=== PATIENT | male | born 1950 | race Caucasian/White ===

== ENCOUNTER 2020-06-22 01:26 | Inpatient (IN) | payer MEDICARE, SELFPAY ==
[2020-06-22] VITALS (9 sets, daily range): BP systolic 107–154; BP diastolic 54–84; PULSE 77–108; RESP 16–20; TEMP 36.1–37.8; O2SAT 95–100; BMI 18.6
--- NOTE | ~2020-06-22 | CT_ITS ---
EXAMINATION: CT brain wo con DATE: 06/24/2020 13:09 INDICATION: Head injury. TECHNIQUE: Computed tomography (CT) of the head was performed without intravenous contrast. The mA wa s adjusted according to patient size. Iterative reconstruction technique was employed. The dose-lengt h product was 681.00 mGy-cm. COMPARISON: Head CT 03/12/2012 FINDINGS: There is a small old infarct in left cerebellum. There is an old lacunar infarct in right c audate nucleus. There are scattered areas of low attenuation in the cerebral white matter. There is n o intracranial hemorrhage, acute infarction, or abnormal intracranial mass lesion. The ventricles are normal in size. There is mucosal thickening in the paranasal sinuses. The orbits are normal. The mas toid air cells are normal. IMPRESSION: 1. 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 2. Mild nonspecific cerebral white matter disease, which likely represents chronic small vessel ische shahana disease. Reviewed, dictated and finalized at location A. IMPRESSION: 1. 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 2. 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
--- NOTE | ~2020-06-22 | US_ITS ---
EXAMINATION: US arterial duplex LE EXAM DATE: 06/23/2020 12:24 INDICATION: Severe leg pain. Hypertension. TECHNIQUE: Segmental pressures and plethysmographic and Doppler waveforms of the brachial and lower e xtremity arteries were obtained. There is no prior study for comparison. FINDINGS: Right and left brachial artery pressures of 149 mm Hg and 142 mm Hg, respectively, are concordant (no rmal difference <= 30 mmHg). The right and left thigh-brachial pressure indices are could not obtain , 2.0, respectively (normal > 1.2). RIGHT LEG: The ankle-brachial index (J CARLOS) is 1.02 (normal >= 0.9-1). The lower extremity ratios, segmental pressure gradients as follows; Proximal superficial femoral artery:- Could not obtain ( mmHg). Distal superficial femoral artery: ----- 1.09 (163 mmHg). Popliteal: 0.87 (130 mmHg). Dorsalis pedis: 1.02 (152 mmHg). Posterior tibial: 0.83 (124 mmHg). (Normal gradients <= 20-30 mmHg between adjacent levels on the same leg or the same levels on the two legs). Arterial waveforms are biphasic proximally, monophasic belo w the knee. LEFT LEG: The ankle-brachial index (J CARLOS) is 0.72 (normal >= 0.9-1). The lower extremity ratios, segmental pressure gradients as follows; Proximal superficial femoral artery:- 2.03 (302 mmHg). Distal superficial femoral artery: ----- 1.05 (156 mmHg). Popliteal: 1.05 (156 mmHg). Dorsalis pedis: 0.72 (107 mmHg). Posterior tibial: 0.66 (99 mmHg). (Normal gradients <= 20-30 mmHg between adjacent levels on the same leg or the same levels on the two legs). Arterial waveforms are monophasic. IMPRESSION: 1. Right ankle-brachial index 1.02, normal. 2. Left ankle-brachial index 0.72, mildly decreased. 3. Monophasic wave forms entire left leg and right leg distally. Reviewed, dictated and finalized at location A.
--- NOTE | 2020-06-22 02:27 | ED.SKABFB ---
HPI - Skin/Abscess/Foreign Bdy General Chief complaint: Skin/Abscess/Foreign Body Stated complaint: fall Source: patient Mode of arrival: ambulatory Limitations: no limitations History of Present Illness HPI narrative: Pt is a 70 yo male who presents to ED with complaint of leg wound. He states wound has only been present about 60 hours (wound appears to be older than that). He relatea a story of getting the injury, then cleaning it off, then havinf a sock stick to the wound. He relates several days of difficulty getting sock unstuck from wound. He presents today due to pain and fever. He has poor health, poor circulation and poor hygine. He often has problems with the skin weeping. Right sock is discolored and has dried drainage on it as well. complaint: lesion Onset (ago): day(s) Tetanus up to date: yes (pt tells us td was 5 yrs ago) Location: LLE Severity: severe Quality: sharp (when ever it is touched) Pain Consistency: constant Relieving factors: none Exacerbating factors: none Context: none Associated symptoms: fever and chills Treatments prior to arrival: bandages Related Data Home Medications Medication Instructions Recorded Confirmed atenolol 25 mg PO DAILY 06/22/20 06/22/20 pravastatin 20 mg PO DAILY 06/22/20 06/22/20 tamsulosin 0.4 mg PO DAILY 06/22/20 06/22/20 Allergies Allergy/AdvReac Type Severity Reaction Status Date / Time tetracycline Allergy Unknown Verified 06/22/20 04:30 Review of Systems Constitutional: Constitutional: Reports chills, Reports fatigue and Reports fever(s) Eyes: Eyes: Reports no additional eye complaints ENT: Reports system reviewed and no additional complaints, except as documented Cardiovascular: Cardiovascular: Reports no additional cardiovascular complaints Respiratory: Respiratory: Reports no additional respiratory complaints Gastrointestinal: Gastrointestinal: Reports no additional gastrointestinal complaints Integumentary/Breasts: Comments: bruises everywhere in many different stages of healing, pt states he has spinal stenosis and falls a lot Psychiatric: Psychiatric: Reports no additional psychiatric complaints Endocrine: Endocrine: Reports no additional endocrine complaints Hematologic/Lymphatic: Hematologic/Lymphatic: Reports easy bruising Allergic/Immunologic: Allergic/Immunologic: Reports no additional allergic/immunologic complaints PMFSH Past Medical History Medical History Spinal stenosis Social History Social History (Updated 06/22/20 @ 02:36 by Genoveva Avalos MD) Years smoked: 50 Smoking status: Current every day smoker Tobacco type: cigarettes Smokeless tobacco user: other Second hand tobacco smoke exposure: Yes Alcohol intake: never Substance use: current Substance use type: marijuana and opiates Last use: 06/21/2020 Gender identity (if verbalized by the patient): Male Spiritual care concerns: No Exam Const: General: no acute distress, alert and ill appearing (chronically ill appearance, not acute) Nutritional Appearance: thin Orientation/consciousness: patient oriented x3 Eyes: Conjunctivae: conjunctivae normal Pupils: Equal, round and reactive pupils present Neck: Neck: normal visual inspection Chest: Chest palpation & inspection: normal inspection of the chest Resp: Effort & Inspection: normal respiratory effort Auscultation: clear to auscultation bilaterally Cardio: Rate: regular rate Rhythm: regular rhythm GI: Auscultation: normal bowel sounds Back/Spine/Pelvis: Back: no CVA tenderness Skin: Wounds: wounds noted (left aleman- some drainage, and discoloration of skin flap ) Other: wound was a flap, skin was not spread back out, and is now dark colored with surrounding erythema. Neuro: General: patient oriented x3, moves all extremities and no focal motor deficits Psych: Appearance: grossly normal Mental Status: mental s
[2020-06-22] MEDS: SODIUM CHLORIDE 0.9% IV 1,000 ML 999 ML IV CONT (03:05)
[2020-06-22 03:08] LABS: Basophils Absolute Auto 0.04 K/mm3 (0.00-0.10); Basophils Percent Auto 0.5 % (0.0-1.0); Eosinophils Absolute Auto 0.46 K/mm3 (0.02-0.50); Eosinophils Percent Auto 5.7 % (1.0-6.0); Hematocrit 30.7 % (37.0-46.0); Hemoglobin 9.8 g/dL (12.4-15.3); Immature Granulocyte Absolute 0.02 K/mm3 (0.00-0.00); Immature Granulocyte Percent A 0.2 % (0.0-0.0); Lymphocytes Absolute Auto 1.37 K/mm3 (1.10-4.50); Lymphocytes Percent Auto 16.9 % (18.0-42.0); Mean Corpuscular HGB Conc 31.9 g/dL (32.0-36.0); Mean Corpuscular Hemoglobin 31.4 pg (27.0-31.0); Mean Corpuscular Volume 98.4 fL (78.0-102.0); Mean Platelet Volume 8.9 fl (8.7-11.0); Monocytes Absolute Auto 0.72 K/mm3 (0.10-0.90); Monocytes Percent Auto 8.9 % (2.0-11.0); Neutrophils Absolute Auto 5.5 K/mm3 (1.7-7.2); Neutrophils Percent Auto 67.8 % (50.0-70.0); Platelet Count Result 279 K/mm3 (150-420); Red Blood Count 3.12 M/mm3 (4.70-6.10); Red Cell Distribution Width 13.3 % (11.6-14.4); White Blood Count 8.1 K/mm3 (4.8-10.8)
[2020-06-22] MEDS: NEOMYCIN/POLYMYXIN/BACITRACIN OINTMENT PACKET 3 PACKET (03:17)
[2020-06-22 03:26] LABS: Alanine Aminotransferase 21 U/L (16-63); Albumin Level 3.2 g/dL (3.4-5.0); Alkaline Phosphatase 91 U/L (46-116); Anion Gap 4 mmol/L (8-16); Aspartate Amino Transferase 25 U/L (15-37); Bilirubin,Total 0.4 mg/dL (0.00-1.00); Blood Urea Nitrogen 12 mg/dL (7-18); CRP 6.3 mg/dL (0.0-0.9); Calcium 8.6 mg/dL (8.5-10.1); Carbon Dioxide 29 mmol/L (21-32); Chloride 101 mmol/L (98-108); Estimated CRCL calculation 67 ml/min; Estimated Glomerular Filt Rate > 60; Glucose 128 mg/dL (70-99); Osmolality Calculated 279 mOsm/kg (285-295); Potassium 4.1 mmol/L (3.5-5.1); Sodium 134 mmol/L (136-145); Total Protein 6.3 g/dL (6.4-8.2)
--- NOTE | 2020-06-22 03:34 | PC.NURSE ---
WOUND TO RIGHT ELBOW AND LEFT ARANDA CLEANSED WITH SURCLENSE, NEOSPORIN/ TELFA GAUZE WRAP APPLIED.
[2020-06-22 03:48] LABS: INR 1.1; Partial Thromboplastin Time 31.3 SEC (22.3-31.6); Prothrombin Time 11.3 Seconds (9.64-11.0)
--- NOTE | 2020-06-22 06:31 | PC.NURSE ---
SL in place. No IV fluids/ IVPB hanging when pt to floor.
--- NOTE | 2020-06-22 07:53 | PM.IMHP ---
H&P: HPI History of Present Illness Date/Time: 06/22/20 07:53 <TIMMY Christopher - Last Filed: 06/22/20 13:37> Chief complaint: WOUND INFECTION <TIMMY Christopher - Last Filed: 06/22/20 13:37> Narrative: Armando Arceo is a 70 year old male who presented to the ER for wound on his left lower extremity. Patient states the wound injury occurred 1-2 days ago but he cannot recall what happened at that time. He states he had a sock on his leg in the wound and sock stuck to one another. He also an abrasion to the right elbow and to the front right forehead. Patient does seem confused. He states his daughter who is a nurse helped him with the wound. When asked what kind of a nurse patient states well she is not a nurse but she does something and healthcare and the follow this with he really was not sure what she does for living. Patient admits that both lower extremities have been read and swollen but does not recall when all this started. Patient does say he has severe pain in the left lower extremity where the wound is and rates the pain a 10/10 when it is touched. Patient does not complain of pain to the right elbow were to the forehead. <TIMMY Christopher - Last Filed: 06/22/20 13:37> Review of Systems Review of Systems: All systems reviewed & are unremarkable except as noted in HPI and below <TIMMY Christopher - Last Filed: 06/22/20 13:37> [facility] Past Medical History Medical History: Medical History Spinal stenosis <TIMMY Christopher - Last Filed: 06/22/20 13:37> Social History Social History: Social History (Updated 06/22/20 @ 02:36 by Genoveva Avalos MD) Years smoked: 50 Smoking status: Current every day smoker Tobacco type: cigarettes Smokeless tobacco user: other Second hand tobacco smoke exposure: Yes Alcohol intake: never Substance use: current Substance use type: marijuana and opiates Last use: 06/21/2020 Gender identity (if verbalized by the patient): Male Spiritual care concerns: No <TIMMY Christopher - Last Filed: 06/22/20 13:37> Meds Home Medications and Allergies Home medications: Home Medications Medication Instructions Recorded Confirmed Type atenolol 25 mg PO DAILY 06/22/20 06/22/20 History pravastatin 20 mg PO DAILY 06/22/20 06/22/20 History tamsulosin 0.4 mg PO DAILY 06/22/20 06/22/20 History <TIMMY Christopher - Last Filed: 06/22/20 13:37> Allergies/Adverse reactions: Allergies Allergy/AdvReac Type Severity Reaction Status Date / Time tetracycline Allergy Unknown Verified 06/22/20 04:30 <TIMMY Christopher - Last Filed: 06/22/20 13:37> Vital Signs Vital Signs - 24 hr 06/22/20 01:30 06/22/20 04:05 06/22/20 05:00 Temperature 100.1 F H 99.6 F 97.8 F Pulse Rate 108 H 77 88 Respiratory Rate 20 20 16 Blood Pressure 154/84 H 107/63 127/76 Pulse Oximetry 100 97 99 06/22/20 05:51 Temperature 97.8 F Pulse Rate 88 Respiratory Rate 16 Blood Pressure 127/76 Pulse Oximetry 99 <TIMMY Christopher - Last Filed: 06/22/20 13:37> Exam Const: General: cooperative, comfortable and no acute distress <TIMMY Christopher - Last Filed: 06/22/20 13:37> Nutritional Appearance: average body habitus <TIMMY Christopher - Last Filed: 06/22/20 13:37> Orientation/consciousness: oriented to person, oriented to place and oriented to time ( Not to events) <TIMMY Christopher - Last Filed: 06/22/20 13:37> HENMT: Head: abrasion right frontal <TIMMY Christopher - Last Filed: 06/22/20 13:37> Eyes: General: appearance normal, both eyes and all related structures <TIMMY Christopher - Last Filed: 06/22/20 13:37> Visual García: normal visual garcía by confrontation <TIMMY Christopher - Last Filed: 06/22/20 13:37> Alignment and Position: alignment normal <TIMMY Christopher - Last Filed: 06/22
[2020-06-22] MEDS: MUPIROCIN 2% OINT 22 GM TUBE 1 APPLIC TOPICAL (10:51)
[2020-06-22] MEDS: PANTOPRAZOLE SODIUM IV 40 MG VIAL IV PUSH (10:52)
[2020-06-22 12:33] LABS: Hemoglobin A1C 5.5 % (<5.7)
[2020-06-22 12:39] LABS: BNP 20 pg/mL (0-100)
[2020-06-22] MEDS: TETANUS/DIPHTHERIA TOXOIDS ADSORB 0.5 ML VIAL (*BKC) IM (12:51)
[2020-06-22] MEDS: ACETAMINOPHEN 325 MG TABLET 650 MG PO (16:14)
[2020-06-22] MEDS: ENOXAPARIN 40 MG/0.4 ML SYRINGE SUB-Q (17:58)
--- NOTE | 2020-06-22 21:00 | PC.NURSE ---
in bed with legs elevated, dressing to leg dry and intact, no redness extending beyond marked border
--- NOTE | 2020-06-22 22:00 | PC.NURSE ---
Dressing remains dry and intact
--- NOTE | 2020-06-22 23:52 | PC.NURSE ---
Up to void, tailbone and LLE hurting pretty bad dressing d/i
--- NOTE | 2020-06-23 01:49 | PC.NURSE ---
Up to void, dressing to leg dry and in place
[2020-06-23] MEDS: ACETAMINOPHEN 325 MG TABLET 650 MG PO (03:53)
[2020-06-23 04:00] VITALS: BP 140/70; PULSE 90; RESP 18; TEMP 36.6; O2SAT 96
--- NOTE | 2020-06-23 04:13 | PC.NURSE ---
Dressing remains in place d/i
[2020-06-23 05:54] LABS: Basophils Absolute Auto 0.03 K/mm3 (0.00-0.10); Basophils Percent Auto 0.5 % (0.0-1.0); Eosinophils Absolute Auto 0.31 K/mm3 (0.02-0.50); Eosinophils Percent Auto 4.8 % (1.0-6.0); Hematocrit 29.3 % (37.0-46.0); Hemoglobin 9.6 g/dL (12.4-15.3); Immature Granulocyte Absolute 0.02 K/mm3 (0.00-0.00); Immature Granulocyte Percent A 0.3 % (0.0-0.0); Lymphocytes Absolute Auto 1.68 K/mm3 (1.10-4.50); Lymphocytes Percent Auto 26.2 % (18.0-42.0); Mean Corpuscular HGB Conc 32.8 g/dL (32.0-36.0); Mean Corpuscular Hemoglobin 31.4 pg (27.0-31.0); Mean Corpuscular Volume 95.8 fL (78.0-102.0); Mean Platelet Volume 9.2 fl (8.7-11.0); Monocytes Absolute Auto 0.63 K/mm3 (0.10-0.90); Monocytes Percent Auto 9.8 % (2.0-11.0); Neutrophils Absolute Auto 3.7 K/mm3 (1.7-7.2); Neutrophils Percent Auto 58.4 % (50.0-70.0); Platelet Count Result 251 K/mm3 (150-420); Red Blood Count 3.06 M/mm3 (4.70-6.10); Red Cell Distribution Width 13.2 % (11.6-14.4); White Blood Count 6.4 K/mm3 (4.8-10.8)
[2020-06-23 06:05] LABS: Anion Gap 8 mmol/L (8-16); Blood Urea Nitrogen 6 mg/dL (7-18); Calcium 8.5 mg/dL (8.5-10.1); Carbon Dioxide 27 mmol/L (21-32); Chloride 105 mmol/L (98-108); Estimated CRCL calculation 76 ml/min; Estimated Glomerular Filt Rate > 60; Glucose 86 mg/dL (70-99); Osmolality Calculated 286 mOsm/kg (285-295); Potassium 3.5 mmol/L (3.5-5.1); Sodium 140 mmol/L (136-145)
--- NOTE | 2020-06-23 07:55 | PM.IMPN ---
Progress Note: A&P Assessment and Plan (1) Posttraumatic wound infection: Code(s): T14.8XXA - Other injury of unspecified body region, initial encounter; L08.9 - Local infection of the skin and subcutaneous tissue, unspecified Status: Acute Assessment and Plan: 06/22/2020 patient was started on Levaquin and Zosyn in the ER. Bactroban was added as a topical. Rounding physician would like to stop Levaquin after tomorrow's dose and continue Zosyn. The erythematous area was marked with a pen and will be monitored. Wound culture was obtained in the ER results pending at this time. Will consider adding either Vancomycin or Clindamycin or Linezolid if wound culture shows MRSA. Given unknown cause for injury Tdap was ordered. 06/23/2020 Wound Culture Preliminary as reported by lab: GRAM STAIN: Few, epithelial cells, Moderate White blood cells seen, Many Gram positive cocci in clusters. Zosyn is continued and Levaquin discontinued, Bactroban ointment continued, consult for wound care placed, Tramadol 100 mg q.6 hours p.r.n. added, erythema around the wound appears to have gotten smaller in relation to the pen markings yesterday, continue to monitor lab work. (2) Cellulitis: Qualifiers: Laterality: left Site of cellulitis: extremity Site of cellulitis of extremity: lower extremity Qualified Code(s): L03.116 - Cellulitis of left lower limb Code(s): L03.90 - Cellulitis, unspecified Status: Acute Assessment and Plan: 06/22/2020 Current antibiotic regimen as noted above and will consider adding antibiotic if wound culture shows MRSA. Monitoring wound borders and lab work. Legs elevated due to 3+ pitting edema lower extremities. 06/23/2020 Zosyn and Bactroban continued, Levaquin discontinued, 2+ pitting edema lower extremities, erythema improved as noted above, continue to monitor (3) Abrasions of multiple sites: Code(s): T07.XXXA - Unspecified multiple injuries, initial encounter Status: Acute Assessment and Plan: 06/22/2020 Topical Bactroban, monitor wounds right elbow right forehead, Tdap ordered. 06/23/2020 continue as above, Tdap administered yesterday (4) Anemia: Code(s): D64.9 - Anemia, unspecified Status: Acute Assessment and Plan: 06/22/2020 H/H 9.8/30.7 today, will be monitoring labs. 06/23/2020 today H/H decreased to 9.6/29.3, anemia workup ordered Subjective Date/time seen: 06/23/20 07:55 Patient states he seems to be doing pretty good today. He does complain of 5-6 out of 10 lower left leg pain while being still. And a 10/10 pain with it being touched or moved. Patient says pain control could be a little better. Denies any chest pain shortness of breath. Admits that he does call for assistance when getting up to use the bedside commode. Patient was wanting to go home soon as possible however I did explain to him the need for the IV antibiotics and wound care. Review of Systems Review of Systems: All systems reviewed & are unremarkable except as noted in HPI and below Musculoskeletal: Comments: States his tailbone gets a little sore from sitting so often. He says he relieves this by turning himself often in bed. Exam Const: General: cooperative, no acute distress, alert and awake Nutritional Appearance: average body habitus Orientation/consciousness: oriented to person, oriented to place and oriented to time Resp: Effort & Inspection: normal respiratory effort Auscultation: clear to auscultation bilaterally, no crackles, no rales, no rhonchi and no wheezes Cardio: Jugular venous distension: no JVD Rate: regular rate Rhythm: regular rhythm Heart sounds: S1 normal heart sound present and S2 normal heart sound present GI: GI Palp: No abdominal tenderness Auscultation: Hypoactive bowel sounds present Back/Spine/Pelvis: Thoracic/Lumbar Spine: Thoracic/lumbar scoliosis Skin: Wounds: wounds noted avulsion left anterior lower leg without odor and
[2020-06-23 08:00] VITALS: BP 154/73; PULSE 66; RESP 18; TEMP 36.7; O2SAT 97
[2020-06-23 08:03] LABS: Reticulocyte Hemoglobin Conten 33.7 pg (28.0-35.0); Reticulocyte Percent 1.58 % (0.50-1.50); Reticulocytes Absolute 0.05 M/mm3 (0.02-0.1)
[2020-06-23] MEDS: PANTOPRAZOLE SODIUM IV 40 MG VIAL IV PUSH (08:17)
[2020-06-23 08:18] VITALS: PULSE 72
[2020-06-23] MEDS: TAMSULOSIN HCL 0.4 MG CAPSULE PO (08:18)
[2020-06-23] MEDS: PRAVASTATIN SODIUM 20 MG TABLET PO (08:18)
[2020-06-23] MEDS: atenoloL 25 MG TABLET PO (08:18)
[2020-06-23 08:39] LABS: Ferritin 194 ng/mL (26-388); Iron 35 ug/dL (65-175); Percent Iron Saturation 24 % (12-57); Vitamin B12 425 pg/mL (193-986)
[2020-06-23 08:40] LABS: Folic Acid > 20.0 ng/mL (8.6->20); Thyroid Stimulating Hormone Reflex 0.07 u/IU/mL (0.36-3.74)
[2020-06-23 08:41] LABS: Free T4 Free Thyroxine Reflex 1.67 ng/dL (0.76-1.46)
[2020-06-23] MEDS: traMADol HCL (*CRX) 50 MG TABLET 100 MG PO ×2 (09:35→20:20)
[2020-06-23] MEDS: MUPIROCIN 2% OINT 22 GM TUBE 1 APPLIC TOPICAL ×2 (10:30→20:53)
--- NOTE | 2020-06-23 11:25 | PC.NURSE ---
To x-ray per wc with technical service representative.
--- NOTE | 2020-06-23 12:02 | PC.NURSE ---
Message left with wound center at [facility] per order.
--- NOTE | 2020-06-23 12:04 | PC.NURSE ---
Pt status changed from Observation to Inpatient.
--- NOTE | 2020-06-23 12:15 | PC.NURSE ---
Pt returned to room from xray. to bed per self. sitting at edge of bed eating lunch. Call malin in reach, reminded to call with needs.
--- NOTE | 2020-06-23 12:50 | PC.NURSE ---
Nephew here to visit the patient.
--- NOTE | 2020-06-23 15:00 | PC.NURSE ---
Pt found laying back across the bed, sleeping, hard to arouse, awoken with a mild sternal rub and name calling. once awake states he's finally getting some sleep but seems very drowsy still. up in bed straight with assist of 2. Bed rails up x3. Call malin in reach. Reminded to call with needs.
[2020-06-23 16:00] VITALS: BP 105/59; PULSE 54; RESP 16; TEMP 36.4; O2SAT 98
[2020-06-23] MEDS: ENOXAPARIN 40 MG/0.4 ML SYRINGE SUB-Q (16:45)
[2020-06-23 20:00] VITALS: BP 134/71; PULSE 74; RESP 16; TEMP 36.4; O2SAT 98
[2020-06-23 23:57] VITALS: BP 94/43; PULSE 60; RESP 16; TEMP 36.2; O2SAT 97
[2020-06-24 04:00] VITALS: BP 132/60; PULSE 68; RESP 16; TEMP 36.6; O2SAT 97
[2020-06-24] MEDS: traMADol HCL (*CRX) 50 MG TABLET 100 MG PO (05:25)
[2020-06-24 05:41] LABS: Hemoglobin 10.4 g/dL (12.4-15.3); Mean Corpuscular HGB Conc 32.5 g/dL (32.0-36.0); Mean Corpuscular Hemoglobin 31.9 pg (27.0-31.0); Mean Corpuscular Volume 98.2 fL (78.0-102.0); Mean Platelet Volume 8.8 fl (8.7-11.0); Platelet Count Result 267 K/mm3 (150-420); Red Blood Count 3.26 M/mm3 (4.70-6.10); Red Cell Distribution Width 13.2 % (11.6-14.4); White Blood Count 6.7 K/mm3 (4.8-10.8)
[2020-06-24 05:54] LABS: Anion Gap 5 mmol/L (8-16); Blood Urea Nitrogen 7 mg/dL (7-18); Calcium 8.7 mg/dL (8.5-10.1); Carbon Dioxide 30 mmol/L (21-32); Chloride 103 mmol/L (98-108); Estimated CRCL calculation 70 ml/min; Estimated Glomerular Filt Rate > 60; Glucose 84 mg/dL (70-99); Osmolality Calculated 283 mOsm/kg (285-295); Potassium 3.9 mmol/L (3.5-5.1); Sodium 138 mmol/L (136-145)
--- NOTE | 2020-06-24 07:32 | PM.IMPN ---
Progress Note: A&P Assessment and Plan (1) Posttraumatic wound infection: Code(s): T14.8XXA - Other injury of unspecified body region, initial encounter; L08.9 - Local infection of the skin and subcutaneous tissue, unspecified Status: Acute Assessment and Plan: 06/22/2020 patient was started on Levaquin and Zosyn in the ER. Bactroban was added as a topical. Rounding physician would like to stop Levaquin after tomorrow's dose and continue Zosyn. The erythematous area was marked with a pen and will be monitored. Wound culture was obtained in the ER results pending at this time. Will consider adding either Vancomycin or Clindamycin or Linezolid if wound culture shows MRSA. Given unknown cause for injury Tdap was ordered. 06/23/2020 Wound Culture Preliminary as reported by lab: GRAM STAIN: Few, epithelial cells, Moderate White blood cells seen, Many Gram positive cocci in clusters. Zosyn is continued and Levaquin discontinued, Bactroban ointment continued, consult for wound care placed, Tramadol 100 mg q.6 hours p.r.n. added, erythema around the wound appears to have gotten smaller in relation to the pen markings yesterday, continue to monitor lab work. 06/24/2020 Wound Culture: Staphylococcus aureus with sensitivity to follow, dressing will now be wet to dry, will continue to monitor wounds, still use Bactroban on the forehead and the right arm (2) Cellulitis: Qualifiers: Laterality: left Site of cellulitis: extremity Site of cellulitis of extremity: lower extremity Qualified Code(s): L03.116 - Cellulitis of left lower limb Code(s): L03.90 - Cellulitis, unspecified Status: Acute Assessment and Plan: 06/22/2020 Current antibiotic regimen as noted above and will consider adding antibiotic if wound culture shows MRSA. Monitoring wound borders and lab work. Legs elevated due to 3+ pitting edema lower extremities. 06/23/2020 Zosyn and Bactroban continued, Levaquin discontinued, 2+ pitting edema lower extremities, erythema improved as noted above, continue to monitor 06/24/2020 continue with current regiment (3) Abrasions of multiple sites: Code(s): T07.XXXA - Unspecified multiple injuries, initial encounter Status: Acute Assessment and Plan: 06/22/2020 Topical Bactroban, monitor wounds right elbow right forehead, Tdap ordered. 06/23/2020 continue as above, Tdap administered yesterday 06/24/2020 continue as above (4) Anemia: Code(s): D64.9 - Anemia, unspecified Status: Acute Assessment and Plan: 06/22/2020 H/H 9.8/30.7 today, will be monitoring labs. 06/23/2020 today H/H decreased to 9.6/29.3, anemia workup ordered 06/24/2020 anemia stable 10.4/3 2, iron deficiency anemia, ferrous sulfate 324 mg daily added Subjective Date/time seen: 06/24/20 07:32 Patient basically says no change from yesterday. Left lower extremity still hurts when he stands up or when he moves it or if it is touched. Patient denies headache, chest pains, shortness of breath, or increased work of breathing. Patient states he really would like to go home. Review of Systems Constitutional: Constitutional: Reports no additional constitutional complaints Cardiovascular: Cardiovascular: Reports no additional cardiovascular complaints, Denies chest pain, Denies chest pain at rest and Denies chest pain with activity Respiratory: Respiratory: Reports no additional respiratory complaints, Denies cough, Denies pain on inspiration, Denies dyspnea and Denies dyspnea on exertion Gastrointestinal: Gastrointestinal: Reports no additional gastrointestinal complaints Musculoskeletal: Comments: pain lower left extremity Exam Const: General: cooperative, no acute distress and ill appearing chronically Nutritional Appearance: thin Orientation/consciousness: oriented to person and oriented to place Resp: Effort & Inspection: normal respiratory effort Auscultation: clear to auscultation bilaterally Cardio:
[2020-06-24 08:00] VITALS: BP 145/79; PULSE 75; RESP 12; TEMP 36.7; O2SAT 97
[2020-06-24] MEDS: PRAVASTATIN SODIUM 20 MG TABLET PO (08:35)
[2020-06-24] MEDS: MUPIROCIN 2% OINT 22 GM TUBE 1 APPLIC TOPICAL ×2 (08:35→21:34)
[2020-06-24] MEDS: atenoloL 25 MG TABLET PO (08:35)
[2020-06-24] MEDS: PANTOPRAZOLE SODIUM IV 40 MG VIAL IV PUSH (08:35)
[2020-06-24] MEDS: FERROUS SULFATE 324 MG TABLET PO (08:35)
[2020-06-24] MEDS: TAMSULOSIN HCL 0.4 MG CAPSULE PO (08:35)
[2020-06-24 12:00] VITALS: BP 125/68; PULSE 75; RESP 20; TEMP 36.6; O2SAT 94
[2020-06-24 12:10] LABS: Ethanol < 3 mg/dL (0-6)
[2020-06-24 15:29] LABS: Amphetamine Screen Urine Positive (Negative); Barbiturate Screen Urine Negative (Negative); Benzodiazepines Screen Urine Negative (Negative); Cannabinoid Screen Urine Negative (Negative); Cocaine Screen Urine Negative (Negative); Methadone Screen Urine Negative (Negative); Opiate Screen Urine Positive (Negative); Phencyclidine Screen Urine Negative (Negative)
[2020-06-24 16:00] VITALS: BP 136/72; PULSE 78; RESP 14; TEMP 36.1; O2SAT 95
--- NOTE | 2020-06-24 16:37 | PM.EVENT ---
Event Note Event Note Event Note: I have examined the patient and reviewed the charts. I discussed patient's care with Jeremiah Michaud APN and agree with his assessment and plan.
[2020-06-24] MEDS: ENOXAPARIN 40 MG/0.4 ML SYRINGE SUB-Q (16:43)
[2020-06-24 20:00] VITALS: BP 116/58; PULSE 70; RESP 18; TEMP 36.2; O2SAT 99
[2020-06-25] VITALS (7 sets, daily range): BP systolic 103–144; BP diastolic 45–68; PULSE 60–70; RESP 16–20; TEMP 36.4–36.9; O2SAT 97–100
[2020-06-25] MEDS: traMADol HCL (*CRX) 50 MG TABLET 100 MG PO ×3 (04:21→21:10)
--- NOTE | 2020-06-25 07:56 | PM.IMPN ---
Progress Note: A&P Assessment and Plan (1) Posttraumatic wound infection: Code(s): T14.8XXA - Other injury of unspecified body region, initial encounter; L08.9 - Local infection of the skin and subcutaneous tissue, unspecified Status: Acute Assessment and Plan: 06/22/2020 patient was started on Levaquin and Zosyn in the ER. Bactroban was added as a topical. Rounding physician would like to stop Levaquin after tomorrow's dose and continue Zosyn. The erythematous area was marked with a pen and will be monitored. Wound culture was obtained in the ER results pending at this time. Will consider adding either Vancomycin or Clindamycin or Linezolid if wound culture shows MRSA. Given unknown cause for injury Tdap was ordered. 06/23/2020 Wound Culture Preliminary as reported by lab: GRAM STAIN: Few, epithelial cells, Moderate White blood cells seen, Many Gram positive cocci in clusters. Zosyn is continued and Levaquin discontinued, Bactroban ointment continued, consult for wound care placed, Tramadol 100 mg q.6 hours p.r.n. added, erythema around the wound appears to have gotten smaller in relation to the pen markings yesterday, continue to monitor lab work. 06/24/2020 Wound Culture: Staphylococcus aureus with sensitivity to follow, dressing will now be wet to dry, will continue to monitor wounds, still use Bactroban on the forehead and the right arm 06/25/2020 wound culture shows MRSA, 1 g vancomycin loading dose given, pharmacy to dose, vancomycin trough order placed for June 27 prior to 3rd dose, at this time patient will will be on a 24 hour dosing schedule (2) Cellulitis: Qualifiers: Laterality: left Site of cellulitis: extremity Site of cellulitis of extremity: lower extremity Qualified Code(s): L03.116 - Cellulitis of left lower limb Code(s): L03.90 - Cellulitis, unspecified Status: Acute Assessment and Plan: 06/22/2020 Current antibiotic regimen as noted above and will consider adding antibiotic if wound culture shows MRSA. Monitoring wound borders and lab work. Legs elevated due to 3+ pitting edema lower extremities. 06/23/2020 Zosyn and Bactroban continued, Levaquin discontinued, 2+ pitting edema lower extremities, erythema improved as noted above, continue to monitor 06/24/2020 continue with current regiment 06/25/2020 vancomycin started as noted above (3) Abrasions of multiple sites: Code(s): T07.XXXA - Unspecified multiple injuries, initial encounter Status: Acute Assessment and Plan: 06/22/2020 Topical Bactroban, monitor wounds right elbow right forehead, Tdap ordered. 06/23/2020 continue as above, Tdap administered yesterday 06/24/2020 continue as above 06/25/2020 continue with topical antibiotic (4) Anemia: Code(s): D64.9 - Anemia, unspecified Status: Acute Assessment and Plan: 06/22/2020 H/H 9.8/30.7 today, will be monitoring labs. 06/23/2020 today H/H decreased to 9.6/29.3, anemia workup ordered 06/24/2020 anemia stable 10.4/32, iron deficiency anemia, ferrous sulfate 324 mg daily added 06/25/2020 will recheck labs in the morning Subjective Date/time seen: 06/25/20 07:56 patient a little upset today when informed that he had MRSA and needed to stay in the hospital for few days. Other than this patient has no other complaints at this time. He does not complain of headaches, chest pain, breathing difficulty, abdominal issues. Review of Systems Constitutional: Constitutional: Reports no additional constitutional complaints Cardiovascular: Cardiovascular: Reports no additional cardiovascular complaints, Denies chest pain, Denies chest pain at rest and Denies chest pain with activity Respiratory: Respiratory: Reports no additional respiratory complaints, Denies chest congestion and Denies cough Gastrointestinal: Gastrointestinal: Reports no additional gastrointestinal complaints Musculoskeletal: Comments: left lower leg pain and discomfort as
[2020-06-25] MEDS: FERROUS SULFATE 324 MG TABLET PO (09:44)
[2020-06-25] MEDS: TAMSULOSIN HCL 0.4 MG CAPSULE PO (09:44)
[2020-06-25] MEDS: atenoloL 25 MG TABLET PO (09:44)
[2020-06-25] MEDS: PANTOPRAZOLE SODIUM IV 40 MG VIAL IV PUSH (09:44)
[2020-06-25] MEDS: PRAVASTATIN SODIUM 20 MG TABLET PO (09:44)
[2020-06-25] MEDS: MUPIROCIN 2% OINT 22 GM TUBE 1 APPLIC TOPICAL ×2 (09:45→21:03)
--- NOTE | 2020-06-25 11:20 | PC.NURSE ---
Patient sleeping quietly in bed with hob elevated. Shows no signs of distress. Call light and belongings provided.
--- NOTE | 2020-06-25 13:15 | PC.NURSE ---
Patient resting in bed. Denies any needs. Call light and belongings at side.
[2020-06-25] MEDS: ENOXAPARIN 40 MG/0.4 ML SYRINGE SUB-Q (17:24)
[2020-06-26] VITALS: BP 155/73; PULSE 63; RESP 18; TEMP 36.6; O2SAT 98
[2020-06-26 04:00] VITALS: BP 151/71; PULSE 58; RESP 18; TEMP 36.7; O2SAT 98
[2020-06-26 05:51] LABS: Hematocrit 30.1 % (37.0-46.0); Hemoglobin 9.9 g/dL (12.4-15.3); Mean Corpuscular HGB Conc 32.9 g/dL (32.0-36.0); Mean Corpuscular Hemoglobin 31.8 pg (27.0-31.0); Mean Corpuscular Volume 96.8 fL (78.0-102.0); Mean Platelet Volume 8.9 fl (8.7-11.0); Platelet Count Result 237 K/mm3 (150-420); Red Blood Count 3.11 M/mm3 (4.70-6.10); White Blood Count 6.2 K/mm3 (4.8-10.8)
[2020-06-26 06:10] LABS: Anion Gap 6 mmol/L (8-16); Blood Urea Nitrogen 6 mg/dL (7-18); Calcium 8.6 mg/dL (8.5-10.1); Carbon Dioxide 28 mmol/L (21-32); Chloride 105 mmol/L (98-108); Estimated CRCL calculation 96 ml/min; Estimated Glomerular Filt Rate > 60; Glucose 85 mg/dL (70-99); Osmolality Calculated 284 mOsm/kg (285-295); Potassium 3.6 mmol/L (3.5-5.1); Sodium 139 mmol/L (136-145)
[2020-06-26 08:00] VITALS: BP 147/67; PULSE 64; RESP 20; TEMP 36.4; O2SAT 97
[2020-06-26 09:54] VITALS: PULSE 64
[2020-06-26] MEDS: PRAVASTATIN SODIUM 20 MG TABLET PO (09:54)
[2020-06-26] MEDS: TAMSULOSIN HCL 0.4 MG CAPSULE PO (09:54)
[2020-06-26] MEDS: FERROUS SULFATE 324 MG TABLET PO (09:54)
[2020-06-26] MEDS: PANTOPRAZOLE SODIUM IV 40 MG VIAL IV PUSH (09:54)
[2020-06-26] MEDS: atenoloL 25 MG TABLET PO (09:54)
[2020-06-26] MEDS: traMADol HCL (*CRX) 50 MG TABLET 100 MG PO ×3 (09:55→22:34)
[2020-06-26] MEDS: MUPIROCIN 2% OINT 22 GM TUBE 1 APPLIC TOPICAL ×2 (09:55→20:16)
[2020-06-26 12:00] VITALS: BP 128/72; PULSE 64; RESP 18; TEMP 36.9; O2SAT 97
--- NOTE | 2020-06-26 12:12 | PM.IMPN ---
Progress Note: A&P Assessment and Plan (1) Posttraumatic wound infection: Code(s): T14.8XXA - Other injury of unspecified body region, initial encounter; L08.9 - Local infection of the skin and subcutaneous tissue, unspecified Status: Acute Assessment and Plan: 06/22/2020 patient was started on Levaquin and Zosyn in the ER. Bactroban was added as a topical. Rounding physician would like to stop Levaquin after tomorrow's dose and continue Zosyn. The erythematous area was marked with a pen and will be monitored. Wound culture was obtained in the ER results pending at this time. Will consider adding either Vancomycin or Clindamycin or Linezolid if wound culture shows MRSA. Given unknown cause for injury Tdap was ordered. 06/23/2020 Wound Culture Preliminary as reported by lab: GRAM STAIN: Few, epithelial cells, Moderate White blood cells seen, Many Gram positive cocci in clusters. Zosyn is continued and Levaquin discontinued, Bactroban ointment continued, consult for wound care placed, Tramadol 100 mg q.6 hours p.r.n. added, erythema around the wound appears to have gotten smaller in relation to the pen markings yesterday, continue to monitor lab work. 06/24/2020 Wound Culture: Staphylococcus aureus with sensitivity to follow, dressing will now be wet to dry, will continue to monitor wounds, still use Bactroban on the forehead and the right arm 06/25/2020 wound culture shows MRSA, 1 g vancomycin loading dose given, pharmacy to dose, vancomycin trough order placed for June 27 prior to 3rd dose, at this time patient will will be on a 24 hour dosing schedule 06/26/2020 continue with vancomycin, vanc trough to be obtained June 27 prior to 3rd dose (2) Cellulitis: Qualifiers: Laterality: left Site of cellulitis: extremity Site of cellulitis of extremity: lower extremity Qualified Code(s): L03.116 - Cellulitis of left lower limb Code(s): L03.90 - Cellulitis, unspecified Status: Acute Assessment and Plan: 06/22/2020 Current antibiotic regimen as noted above and will consider adding antibiotic if wound culture shows MRSA. Monitoring wound borders and lab work. Legs elevated due to 3+ pitting edema lower extremities. 06/23/2020 Zosyn and Bactroban continued, Levaquin discontinued, 2+ pitting edema lower extremities, erythema improved as noted above, continue to monitor 06/24/2020 continue with current regiment 06/25/2020 vancomycin started as noted above 06/26/2020 continue as noted above (3) Abrasions of multiple sites: Code(s): T07.XXXA - Unspecified multiple injuries, initial encounter Status: Acute Assessment and Plan: 06/22/2020 Topical Bactroban, monitor wounds right elbow right forehead, Tdap ordered. 06/23/2020 continue as above, Tdap administered yesterday 06/24/2020 continue as above 06/25/2020 continue with topical antibiotic 06/26/2020 wounds are healing nicely, continue topical ointment and simple dressing (4) Anemia: Code(s): D64.9 - Anemia, unspecified Status: Acute Assessment and Plan: 06/22/2020 H/H 9.8/30.7 today, will be monitoring labs. 06/23/2020 today H/H decreased to 9.6/29.3, anemia workup ordered 06/24/2020 anemia stable 10.4/32, iron deficiency anemia, ferrous sulfate 324 mg daily added 06/25/2020 will recheck labs in the morning 06/26/2020 anemia stable H/H 9.9/30.1 Subjective Date/time seen: 06/26/20 12:12 Patient states he is doing fine just has intermittent leg pain as previously noted. Review of Systems Review of Systems: All systems reviewed & are unremarkable except as noted in HPI and below Exam Const: General: cooperative, comfortable and no acute distress Nutritional Appearance: thin Resp: Effort & Inspection: normal respiratory effort Auscultation: clear to auscultation bilaterally (a little diminished in the bases posteriorly) Cardio: Rate: regular rate Rhythm: regular rhythm Heart sounds: S1 normal heart sound pres
[2020-06-26 16:00] VITALS: BP 138/77; PULSE 66; RESP 18; TEMP 36.9; O2SAT 98
[2020-06-26] MEDS: ENOXAPARIN 40 MG/0.4 ML SYRINGE SUB-Q (16:59)
[2020-06-26] MEDS: ACETAMINOPHEN 325 MG TABLET 650 MG PO (20:15)
[2020-06-27] VITALS: BP 130/43; PULSE 67; RESP 14; TEMP 36.4; O2SAT 97
[2020-06-27 05:10] LABS: Hematocrit 30.9 % (37.0-46.0); Hemoglobin 10.2 g/dL (12.4-15.3); Mean Corpuscular Hemoglobin 31.6 pg (27.0-31.0); Mean Corpuscular Volume 95.7 fL (78.0-102.0); Mean Platelet Volume 8.8 fl (8.7-11.0); Platelet Count Result 261 K/mm3 (150-420); Red Blood Count 3.23 M/mm3 (4.70-6.10); Red Cell Distribution Width 12.6 % (11.6-14.4); White Blood Count 5.9 K/mm3 (4.8-10.8)
[2020-06-27 05:26] LABS: Anion Gap 4 mmol/L (8-16); Blood Urea Nitrogen 6 mg/dL (7-18); Calcium 8.7 mg/dL (8.5-10.1); Carbon Dioxide 30 mmol/L (21-32); Chloride 105 mmol/L (98-108); Estimated CRCL calculation 97 ml/min; Estimated Glomerular Filt Rate > 60; Glucose 81 mg/dL (70-99); Magnesium 1.9 mg/dL (1.8-2.4); Osmolality Calculated 284 mOsm/kg (285-295); Potassium 3.4 mmol/L (3.5-5.1); Sodium 139 mmol/L (136-145)
--- NOTE | 2020-06-27 07:35 | PM.IMPN ---
Progress Note: A&P Assessment and Plan (1) Posttraumatic wound infection: Code(s): T14.8XXA - Other injury of unspecified body region, initial encounter; L08.9 - Local infection of the skin and subcutaneous tissue, unspecified Status: Acute Assessment and Plan: 06/22/2020 patient was started on Levaquin and Zosyn in the ER. Bactroban was added as a topical. Rounding physician would like to stop Levaquin after tomorrow's dose and continue Zosyn. The erythematous area was marked with a pen and will be monitored. Wound culture was obtained in the ER results pending at this time. Will consider adding either Vancomycin or Clindamycin or Linezolid if wound culture shows MRSA. Given unknown cause for injury Tdap was ordered. 06/23/2020 Wound Culture Preliminary as reported by lab: GRAM STAIN: Few, epithelial cells, Moderate White blood cells seen, Many Gram positive cocci in clusters. Zosyn is continued and Levaquin discontinued, Bactroban ointment continued, consult for wound care placed, Tramadol 100 mg q.6 hours p.r.n. added, erythema around the wound appears to have gotten smaller in relation to the pen markings yesterday, continue to monitor lab work. 06/24/2020 Wound Culture: Staphylococcus aureus with sensitivity to follow, dressing will now be wet to dry, will continue to monitor wounds, still use Bactroban on the forehead and the right arm 06/25/2020 wound culture shows MRSA, 1 g vancomycin loading dose given, pharmacy to dose, vancomycin trough order placed for June 27 prior to 3rd dose, at this time patient will will be on a 24 hour dosing schedule 06/26/2020 continue with vancomycin, vanc trough to be obtained June 27 prior to 3rd dose 06/27/2020 continue with vancomycin, vanc trough pending, wound is granulating (2) Cellulitis: Qualifiers: Laterality: left Site of cellulitis: extremity Site of cellulitis of extremity: lower extremity Qualified Code(s): L03.116 - Cellulitis of left lower limb Code(s): L03.90 - Cellulitis, unspecified Status: Acute Assessment and Plan: 06/22/2020 Current antibiotic regimen as noted above and will consider adding antibiotic if wound culture shows MRSA. Monitoring wound borders and lab work. Legs elevated due to 3+ pitting edema lower extremities. 06/23/2020 Zosyn and Bactroban continued, Levaquin discontinued, 2+ pitting edema lower extremities, erythema improved as noted above, continue to monitor 06/24/2020 continue with current regiment 06/25/2020 vancomycin started as noted above 06/26/2020 continue as noted above 06/27/2020 no changes at this time (3) Abrasions of multiple sites: Code(s): T07.XXXA - Unspecified multiple injuries, initial encounter Status: Acute Assessment and Plan: 06/22/2020 Topical Bactroban, monitor wounds right elbow right forehead, Tdap ordered. 06/23/2020 continue as above, Tdap administered yesterday 06/24/2020 continue as above 06/25/2020 continue with topical antibiotic 06/26/2020 wounds are healing nicely, continue topical ointment and simple dressing 06/27/2020 no changes wounds continue to heal (4) Anemia: Code(s): D64.9 - Anemia, unspecified Status: Acute Assessment and Plan: 06/22/2020 H/H 9.8/30.7 today, will be monitoring labs. 06/23/2020 today H/H decreased to 9.6/29.3, anemia workup ordered 06/24/2020 anemia stable 10.4/32, iron deficiency anemia, ferrous sulfate 324 mg daily added 06/25/2020 will recheck labs in the morning 06/26/2020 anemia stable H/H 9.9/30.1 06/27/2020 anemia stable H/H 10.2/30.9 Subjective Date/time seen: 06/27/20 07:35 patient states he really wants to go home as he is tired of being in the hospital and he has things to do at home. Discuss with patient the possibility of outpatient IV therapy however patient states he does not have a reliable way to get a ride to and from the hospital. Other than this patient says he is doing fine other than the usual pain
[2020-06-27 08:00] VITALS: BP 124/70; PULSE 60; RESP 16; TEMP 36.7; O2SAT 99
[2020-06-27 08:07] VITALS: PULSE 60
[2020-06-27] MEDS: PRAVASTATIN SODIUM 20 MG TABLET PO (08:07)
[2020-06-27] MEDS: TAMSULOSIN HCL 0.4 MG CAPSULE PO (08:07)
[2020-06-27] MEDS: atenoloL 25 MG TABLET PO (08:07)
[2020-06-27] MEDS: FERROUS SULFATE 324 MG TABLET PO (08:07)
[2020-06-27] MEDS: traMADol HCL (*CRX) 50 MG TABLET 100 MG PO (08:08)
[2020-06-27] MEDS: PANTOPRAZOLE SODIUM IV 40 MG VIAL IV PUSH (08:13)
[2020-06-27] MEDS: MUPIROCIN 2% OINT 22 GM TUBE 1 APPLIC TOPICAL (08:55)
[2020-06-27 09:08] LABS: Vancomycin Trough 3.7 ug/mL (10.0-15.0)
--- NOTE | 2020-06-27 10:41 | PM.DS ---
DS: Admitting Diagnosis Admitting Diagnosis Admitting Diagnosis: WOUND INFECTION DS: Discharge Diagnosis Discharge Diagnosis (1) Posttraumatic wound infection: Code(s): T14.8XXA - Other injury of unspecified body region, initial encounter; L08.9 - Local infection of the skin and subcutaneous tissue, unspecified Status: Acute Assessment and Plan: 06/22/2020 patient was started on Levaquin and Zosyn in the ER. Bactroban was added as a topical. Rounding physician would like to stop Levaquin after tomorrow's dose and continue Zosyn. The erythematous area was marked with a pen and will be monitored. Wound culture was obtained in the ER results pending at this time. Will consider adding either Vancomycin or Clindamycin or Linezolid if wound culture shows MRSA. Given unknown cause for injury Tdap was ordered. 06/23/2020 Wound Culture Preliminary as reported by lab: GRAM STAIN: Few, epithelial cells, Moderate White blood cells seen, Many Gram positive cocci in clusters. Zosyn is continued and Levaquin discontinued, Bactroban ointment continued, consult for wound care placed, Tramadol 100 mg q.6 hours p.r.n. added, erythema around the wound appears to have gotten smaller in relation to the pen markings yesterday, continue to monitor lab work. 06/24/2020 Wound Culture: Staphylococcus aureus with sensitivity to follow, dressing will now be wet to dry, will continue to monitor wounds, still use Bactroban on the forehead and the right arm 06/25/2020 wound culture shows MRSA, 1 g vancomycin loading dose given, pharmacy to dose, vancomycin trough order placed for June 27 prior to 3rd dose, at this time patient will will be on a 24 hour dosing schedule 06/26/2020 continue with vancomycin, vanc trough to be obtained June 27 prior to 3rd dose 06/27/2020 continue with vancomycin, vanc trough pending, wound is granulating, changing dressing back to Santyl per Wound Care Recommendations, patient being discharged as an inpatient and will be admitted has a swing bed patient for the continuation of antibiotics, wound care, and PT/OT (2) Cellulitis: Qualifiers: Laterality: left Site of cellulitis: extremity Site of cellulitis of extremity: lower extremity Qualified Code(s): L03.116 - Cellulitis of left lower limb Code(s): L03.90 - Cellulitis, unspecified Status: Acute Assessment and Plan: 06/22/2020 Current antibiotic regimen as noted above and will consider adding antibiotic if wound culture shows MRSA. Monitoring wound borders and lab work. Legs elevated due to 3+ pitting edema lower extremities. 06/23/2020 Zosyn and Bactroban continued, Levaquin discontinued, 2+ pitting edema lower extremities, erythema improved as noted above, continue to monitor 06/24/2020 continue with current regiment 06/25/2020 vancomycin started as noted above 06/26/2020 continue as noted above 06/27/2020 no changes at this time (3) Abrasions of multiple sites: Code(s): T07.XXXA - Unspecified multiple injuries, initial encounter Status: Acute Assessment and Plan: 06/22/2020 Topical Bactroban, monitor wounds right elbow right forehead, Tdap ordered. 06/23/2020 continue as above, Tdap administered yesterday 06/24/2020 continue as above 06/25/2020 continue with topical antibiotic 06/26/2020 wounds are healing nicely, continue topical ointment and simple dressing 06/27/2020 no changes wounds continue to heal (4) Anemia: Code(s): D64.9 - Anemia, unspecified Status: Acute Assessment and Plan: 06/22/2020 H/H 9.8/30.7 today, will be monitoring labs. 06/23/2020 today H/H decreased to 9.6/29.3, anemia workup ordered 06/24/2020 anemia stable 10.4/32, iron deficiency anemia, ferrous sulfate 324 mg daily added 06/25/2020 will recheck labs in the morning 06/26/2020 anemia stable H/H 9.9/30.1 06/27/2020 anemia stable H/H 10.2/30.9 DS: Summary Time Spent with Patient Time attestation: Total time spent providing and/
--- NOTE | 2020-06-27 10:43 | PM.IMHP ---
H&P: HPI History of Present Illness Date/Time: 06/27/20 10:43 Chief complaint: WOUND INFECTION Narrative: Armando Arceo is a 70 year old male Review of Systems Constitutional: Constitutional: Reports no additional constitutional complaints Cardiovascular: Cardiovascular: Reports no additional cardiovascular complaints, Denies chest pain, Denies chest pain at rest, Denies chest pain with activity, Denies dyspnea and Denies dyspnea on exertion Respiratory: Respiratory: Reports no additional respiratory complaints, Denies chest congestion, Denies cough, Denies pain on inspiration, Denies dyspnea and Denies dyspnea on exertion Gastrointestinal: Gastrointestinal: Reports no additional gastrointestinal complaints [facility] Past Medical History Medical History Spinal stenosis Social History Social History (Updated 06/22/20 @ 02:36 by Genoveva Avalos MD) Years smoked: 50 Smoking status: Current every day smoker Tobacco type: cigarettes Smokeless tobacco user: other Second hand tobacco smoke exposure: Yes Alcohol intake: never Substance use: current Substance use type: marijuana and opiates Last use: 06/21/2020 Gender identity (if verbalized by the patient): Male Spiritual care concerns: No Meds Home Medications and Allergies Home Medications Medication Instructions Recorded Confirmed Type atenolol 25 mg PO DAILY 06/22/20 06/22/20 History pravastatin 20 mg PO DAILY 06/22/20 06/22/20 History tamsulosin 0.4 mg PO DAILY 06/22/20 06/22/20 History Allergies Allergy/AdvReac Type Severity Reaction Status Date / Time tetracycline Allergy Unknown Verified 06/22/20 04:30 Vital Signs Vital Signs - 24 hr 06/26/20 12:00 06/26/20 16:00 06/27/20 00:00 Temperature 98.4 F 98.4 F 97.6 F Pulse Rate 64 66 67 Respiratory Rate 18 18 14 Blood Pressure 128/72 138/77 130/43 L Pulse Oximetry 97 98 97 06/27/20 08:00 06/27/20 08:07 Temperature 98.1 F Pulse Rate 60 60 Respiratory Rate 16 Blood Pressure 124/70 Pulse Oximetry 99 Exam Const: General: comfortable, alert, awake, Physically active and ill appearing chronically Nutritional Appearance: average body habitus HENMT: Head: abrasion right frontal Eyes: General: appearance normal, both eyes and all related structures Visual García: normal visual garcía by confrontation Alignment and Position: alignment normal EOM: EOMs intact bilaterally Resp: Auscultation: no crackles, no rales, no rhonchi and no wheezes Cardio: Jugular venous distension: no JVD GI: Auscultation: Hypoactive bowel sounds present Neuro: Cranial nerves: Yes CN's II-XII intact bilaterally (grossly intact) Extrem: Right lower extremity: edema Details: 2+ Left lower extremity: edema Details: 2+ H&P: Results Labs Labs: Short CBC 06/27/20 Range/Units 05:04 WBC 5.9 (4.8-10.8) K/mm3 Hgb 10.2 L (12.4-15.3) g/dL Hct 30.9 L (37.0-46.0) % Plt Count 261 (150-420) K/mm3 BMP 06/27/20 05:04 Sodium 139 Potassium 3.4 L Chloride 105 Carbon Dioxide 30 BUN 6 L Creatinine 0.49 L Glucose 81 Calcium 8.7 Assessment and Plan Assessment and plan (1) Posttraumatic wound infection: Code(s): T14.8XXA - Other injury of unspecified body region, initial encounter; L08.9 - Local infection of the skin and subcutaneous tissue, unspecified Status: Acute Assessment and Plan: 06/22/2020 patient was started on Levaquin and Zosyn in the ER. Bactroban was added as a topical. Rounding physician would like to stop Levaquin after tomorrow's dose and continue Zosyn. The erythematous area was marked with a pen and will be monitored. Wound culture was obtained in the ER results pending at this time. Will consider adding either Vancomycin or Clindamycin or Linezolid if wound culture shows MRSA. Given unknown cause for injury Tdap was ordered. 06/23/2020 Wound Culture Prelim
--- NOTE | 2020-06-27 10:56 | PCOTNOTE ---
OT attempted to see patient this AM and patient is refusing therapy at this time. Will attempt again this pm. MS
[2020-06-27 15:05] LABS: Transferrin 119 mg/dL (188-341)
[2020-06-28 20:48] LABS: Vancomycin Trough 9.1 ug/mL (10.0-15.0)
== END 2020-06-27 11:25 | disposition swing bed (61) | DRG 605 ==
LOC: CHSED 02:44 → CHS2ND 07:31
PROVIDERS: Nurse Practitioner Family; Admitting Provider Emergency Medicine; Emergency Provider Emergency Medicine; PCP Internal Medicine; Visit Provider Emergency Medicine
DX: S81.802A Unspecified open wound, left lower leg, initial encounter (principal); L03.116 Cellulitis of left lower limb; L08.9 Local infection of the skin and subcutaneous tissue, unspecified; B95.62 Methicillin resistant Staphylococcus aureus infection as the cause of diseases classified elsewhere; S50.311A Abrasion of right elbow, initial encounter; S00.81XA Abrasion of other part of head, initial encounter; D64.9 Anemia, unspecified; M48.00 Spinal stenosis, site unspecified; F11.90 Opioid use, unspecified, uncomplicated; F17.210 Nicotine dependence, cigarettes, uncomplicated; F12.90 Cannabis use, unspecified, uncomplicated
CPT/HCPCS: 36415; 70450; 80048; 80053; 80202; 80307; 82607; 82728; 82746; 83036; 83540; 83550; 83605; 83735; 83880; 84439; 84443; 84466; 85025; 85027; 85046; 85610; 85730; 86140; 87040; 87070; 87077; 87186; 87205; 90714; 93925; 96365; 96366; 96367; 96372; 96375; 96376; 97110; 97161; 97165; 99284; 99285; A9270; C9113; G0378; J1650; J1956; J2543; J3370; J7030

== ENCOUNTER 2020-06-27 11:26 | Inpatient (IN) | payer MEDICARE, SELFPAY ==
--- NOTE | 2020-06-27 11:50 | WPDREHABHP ---
H&P: HPI History of Present Illness Date/Time: 06/27/20 11:50 Patient is being admitted to swing bed for continuation of IV antibiotics and wound care along with physical and occupational therapy due to his deconditioning. Patient initially came to the hospital for a left lower leg infected wound. Patient was unable to say how his wound happened nor how long ago it happened. He does recall having a sock on that left leg for an unknown amount of time that eventually became stuck to the wound. Patient states that when he took his sock off a lot of the skin came off with it. Patient also has an abrasion on the right elbow and the right side of his forehead. CT was done of his head with no acute findings. Wound culture was done and found to have MRSA for which she has been given Vancomycin through his IV. Chief complaint: rehab Narrative: Armando Arceo is a 70 year old male who has been wanting to go home however there was concern that he will not properly take care of his leg wound also he does not have a reliable source of transportation to return to the hospital twice a day for IV antibiotic therapy. This is especially concerning giving his own account of not remembering how the injuries occurred or how long ago they occurred. Patient is quite thin and weak. Review of Systems Constitutional Constitutional: Reports as per HPI, Reports frequent falls (Patient states he was falling frequently at home prior to inpatient admit.) and Reports lethargy Cardiovascular Cardiovascular: Denies chest pain, Denies chest pain at rest and Denies chest pain with activity Respiratory Respiratory: Denies chest congestion, Denies cough, Denies pain on inspiration, Denies dyspnea and Denies dyspnea on exertion Gastrointestinal Gastrointestinal: Reports no additional gastrointestinal complaints Musculoskeletal Comments: patient states he has scoliosis that started in 2010. Complains of pain to the lower left leg upon standing and walking or even touching. [facility], [facility] Social History Social History (Updated 06/22/20 @ 02:36 by Genoveva Avalos MD) Years smoked: 50 Smoking status: Current every day smoker Tobacco type: cigarettes Smokeless tobacco user: other Second hand tobacco smoke exposure: Yes Alcohol intake: never Substance use: current Substance use type: marijuana and opiates Last use: 06/21/2020 Gender identity (if verbalized by the patient): Male Spiritual care concerns: No Meds Home Medications and Allergies Home Medications Medication Instructions Recorded Confirmed Type atenolol 25 mg PO DAILY 06/22/20 06/27/20 History pravastatin 20 mg PO DAILY 06/22/20 06/27/20 History tamsulosin 0.4 mg PO DAILY 06/22/20 06/27/20 History Allergies Allergy/AdvReac Type Severity Reaction Status Date / Time tetracycline Allergy Unknown Verified 06/22/20 04:30 Exam Const General: cooperative, no acute distress, alert, awake and tired appearing Nutritional Appearance: thin Orientation/consciousness: oriented to person, oriented to place and oriented to time Resp Effort & Inspection: normal respiratory effort Auscultation: clear to auscultation bilaterally (mildly diminished posterior bases) Cardio Rate: regular rate Rhythm: regular rhythm Heart sounds: S1 normal heart sound present and S2 normal heart sound present GI GI Palp: Yes Soft to palpation Auscultation: normal bowel sounds Back/Spine/Pelvis Thoracic/Lumbar Spine: Thoracic/lumbar scoliosis Skin Other: MRSA infected wound to the lower left leg, granulating well, continue vancomycin, continue wound care consult recommendation of Santyl covered with Vaseline gauze and simple dressing. Small abrasion to the right elbow and the right side of the forehead, both are healing well. Assessment and Plan Assessment and plan (1) Posttraumatic wound infection: Code(s): T14.8XXA - Other injury of unspecified body region, initial encounter; L08.9 - Local infection of the
[2020-06-27] MEDS: POTASSIUM CHLORIDE 20 MEQ TABLET PO (14:04)
[2020-06-27] MEDS: traMADol HCL (*CRX) 50 MG TABLET 100 MG PO ×2 (14:04→20:12)
[2020-06-27] MEDS: LIDOCAINE/PRILOCAINE 2.5-2.5% KIT 1 EACH TOPICAL (14:05)
[2020-06-27] MEDS: COLLAGENASE OINT 30 GM TUBE 1 APPLIC TOPICAL (14:05)
--- NOTE | 2020-06-27 15:44 | PCPTNOTE ---
Pt. refused to participate in any therapy services. He states that he will get up and walk around the room himself. He will be discharged from our care. Anil Wright, MPT
--- NOTE | 2020-06-27 15:48 | PCOTNOTE ---
Patient is refusing OT services at this time. MS
[2020-06-27 16:00] VITALS: BP 115/76; PULSE 66; RESP 18; TEMP 37.1; O2SAT 100
[2020-06-27] MEDS: ENOXAPARIN 40 MG/0.4 ML SYRINGE SUB-Q (18:13)
[2020-06-27] MEDS: MUPIROCIN 2% OINT 22 GM TUBE 1 APPLIC TOPICAL (20:13)
[2020-06-28] VITALS: PULSE 64; RESP 20; TEMP 36.8; O2SAT 99
--- NOTE | 2020-06-28 00:23 | PM.IMHP ---
H&P: HPI History of Present Illness Date/Time: 06/27/20 Chief complaint: rehab Narrative: Armando Arceo is a 70 year old man who was heretofore admitted to this facility for a wound on his left lower extremity that grew MRSA is being admitted to the swing bed for continuation of IV antibiotics (vancomycin). On admission the patient was unclear how long the wound it existed but he came to the emergency depart initially because of pain and fever. During his stay at this hospital there has been some concerned expressed by the staff that the patient may be receiving medications/drugs from family members during their visit. Review of Systems Constitutional: Constitutional: Denies chills, Denies fatigue, Denies night sweats and Denies weakness Eyes: Eyes: Denies blurry vision and Denies photophobia ENT: Denies nasal congestion and Denies nasal discharge Cardiovascular: Cardiovascular: Denies chest pain and Denies palpitations Respiratory: Respiratory: Denies cough, Denies dyspnea and Denies dyspnea on exertion Gastrointestinal: Gastrointestinal: Denies abdominal pain, Denies diarrhea, Denies nausea and Denies vomiting Genitourinary: Genitourinary: Denies dysuria and Denies urinary frequency Musculoskeletal: Musculoskeletal: Reports back pain, Denies arthralgias and Denies joint swelling Integumentary/Breasts: Skin/Breast: Reports as per HPI, Denies pruritus, Denies erythema and Denies rash Neurologic: Denies confusion, Denies headache(s) and Denies numbness Psychiatric: Psychiatric: Denies anxiety, Denies confusion and Denies depression Endocrine: Endocrine: Denies heat intolerance and Denies palpitations Hematologic/Lymphatic: Hematologic/Lymphatic: Denies easy bleeding and Denies easy bruising Allergic/Immunologic: Allergic/Immunologic: Denies urticaria, Denies lip swelling and Denies throat swelling PMFSH Past Medical History Medical History Spinal stenosis Social History Social History Years smoked: 50 Smoking status: Current every day smoker Tobacco type: cigarettes Smokeless tobacco user: other Second hand tobacco smoke exposure: Yes Alcohol intake: never Substance use: current Substance use type: marijuana and opiates Last use: 06/21/2020 Gender identity (if verbalized by the patient): Male Spiritual care concerns: No Meds Home Medications and Allergies Home Medications Medication Instructions Recorded Confirmed Type atenolol 25 mg PO DAILY 06/22/20 06/27/20 History pravastatin 20 mg PO DAILY 06/22/20 06/27/20 History tamsulosin 0.4 mg PO DAILY 06/22/20 06/27/20 History ferrous sulfate 324 mg BYMOUTH DAILY 06/27/20 06/27/20 History Allergies Allergy/AdvReac Type Severity Reaction Status Date / Time tetracycline Allergy Unknown Verified 06/22/20 04:30 Vital Signs Vital Signs - 24 hr 06/27/20 16:00 Temperature 37.1 C Pulse Rate 66 Respiratory Rate 18 Blood Pressure 115/76 Pulse Oximetry 100 Exam Const: General: comfortable and no acute distress HENMT: General nose exam: Normal nares present Mouth: Yes moist mucous membranes Eyes: Sclera: sclerae normal Pupils: Equal, round and reactive pupils present EOM: EOMs intact bilaterally Neck: Neck: supple and no JVD Resp: Effort & Inspection: normal respiratory effort Auscultation: clear to auscultation bilaterally, no rales, no rhonchi and no wheezes Cardio: Rate: regular rate Rhythm: regular rhythm Heart sounds: no gallops and no murmurs GI: Inspection: non-distended GI Palp: Yes Soft to palpation and No Tenderness to palpation present (GI) Skin: General skin exam: normal color and no erythema Other: necrotic wound on the lateral left lower leg. Neuro: Cognition (Neuro): normal cognition Speech: normal speech Motor exam (neuro): 5/5 motor strength present throughout Sensory Exam: no
[2020-06-28] MEDS: traMADol HCL (*CRX) 50 MG TABLET 100 MG PO ×3 (03:59→18:05)
[2020-06-28 08:00] VITALS: BP 137/65; PULSE 68; RESP 18; TEMP 36.9; O2SAT 99
[2020-06-28] MEDS: TAMSULOSIN HCL 0.4 MG CAPSULE PO (08:33)
[2020-06-28] MEDS: FERROUS SULFATE 324 MG TABLET PO (08:33)
[2020-06-28] MEDS: atenoloL 25 MG TABLET PO (08:33)
[2020-06-28] MEDS: PRAVASTATIN SODIUM 20 MG TABLET PO (08:33)
[2020-06-28] MEDS: NICOTINE (*PBKC) 21 MG PATCH 1 PATCH TRANSDERM (08:34)
[2020-06-28] MEDS: PANTOPRAZOLE 40 MG TABLET PO (08:34)
[2020-06-28] MEDS: COLLAGENASE OINT 30 GM TUBE 1 APPLIC TOPICAL (08:39)
[2020-06-28] MEDS: MUPIROCIN 2% OINT 22 GM TUBE 1 APPLIC TOPICAL (08:40)
--- NOTE | 2020-06-28 09:00 | PC.NURSE ---
pt refused dressing change at this time. stated he would let nurse do it later.
[2020-06-28] MEDS: POTASSIUM CHLORIDE 20 MEQ TABLET 40 MEQ PO (09:10)
[2020-06-28 10:15] LABS: Amphetamine Screen Urine Negative (Negative); Barbiturate Screen Urine Negative (Negative); Benzodiazepines Screen Urine Negative (Negative); Cannabinoid Screen Urine Negative (Negative); Cocaine Screen Urine Negative (Negative); Methadone Screen Urine Negative (Negative); Opiate Screen Urine Negative (Negative); Phencyclidine Screen Urine Negative (Negative)
--- NOTE | 2020-06-28 11:22 | PC.NURSE ---
pt continues to refused dressing change at this time. pt stated after lunch . will attempt again later.
[2020-06-28 15:55] VITALS: BP 142/75; PULSE 60; RESP 20; TEMP 37.1; O2SAT 99
[2020-06-28] MEDS: ENOXAPARIN 40 MG/0.4 ML SYRINGE SUB-Q (16:13)
--- NOTE | 2020-06-28 22:07 | PC.NURSE ---
[facility] called with change to vanc dose, target range is 10-15
[2020-06-28 23:55] VITALS: BP 152/76; PULSE 60; RESP 16; TEMP 36.7; O2SAT 99
[2020-06-29] MEDS: traMADol HCL (*CRX) 50 MG TABLET 100 MG PO ×3 (00:05→12:15)
[2020-06-29 07:30] VITALS: BP 127/79; PULSE 66; RESP 18; TEMP 36.8; O2SAT 99
[2020-06-29 09:00] VITALS: PULSE 66
[2020-06-29] MEDS: atenoloL 25 MG TABLET PO (09:00)
[2020-06-29] MEDS: PANTOPRAZOLE 40 MG TABLET PO (09:00)
[2020-06-29] MEDS: FERROUS SULFATE 324 MG TABLET PO (09:00)
[2020-06-29] MEDS: TAMSULOSIN HCL 0.4 MG CAPSULE PO (09:00)
[2020-06-29] MEDS: LIDOCAINE/PRILOCAINE 2.5-2.5% KIT 1 EACH TOPICAL (09:00)
[2020-06-29] MEDS: PRAVASTATIN SODIUM 20 MG TABLET PO (09:00)
[2020-06-29] MEDS: COLLAGENASE OINT 30 GM TUBE 1 APPLIC TOPICAL (09:01)
[2020-06-29] MEDS: LIDOCAINE 5% PATCH 1 PATCH TRANSDERM (09:02)
[2020-06-29] MEDS: MUPIROCIN 2% OINT 22 GM TUBE 1 APPLIC TOPICAL (09:03)
[2020-06-29] MEDS: HYDROcodone/acetaminophen (*CRX) 10-325 MG TABLET 1 TAB PO (14:06)
--- NOTE | 2020-06-29 15:03 | PM.DS ---
DS: Admitting Diagnosis Admitting Diagnosis Admitting Diagnosis: rehab DS: Discharge Diagnosis Discharge Diagnosis (1) Cellulitis: Qualifiers: Laterality: left Site of cellulitis: extremity Site of cellulitis of extremity: lower extremity Qualified Code(s): L03.116 - Cellulitis of left lower limb Code(s): L03.90 - Cellulitis, unspecified Status: Acute Assessment and Plan: Patient received IV vancomycin for x4 days MRSA sensitive to Bactrim. Will discharge home with 7 days of Bactrim patient is noncompliant Patient insists that he will not be able to pay for medication because the medication verified by case coordination medication not expensive patient informed of cost Patient daughter educated on how to properly clean and dress patient's leg with cellulitis. Patient refuses to go to wound care he also refuses home health (2) Posttraumatic wound infection: Code(s): T14.8XXA - Other injury of unspecified body region, initial encounter; L08.9 - Local infection of the skin and subcutaneous tissue, unspecified Status: Acute Assessment and Plan: Refer to cellulitis (3) Abrasions of multiple sites: Code(s): T07.XXXA - Unspecified multiple injuries, initial encounter Status: Acute (4) Anemia: Code(s): D64.9 - Anemia, unspecified Status: Acute (5) Generalized muscle weakness: Code(s): M62.81 - Muscle weakness (generalized) Status: Acute Assessment and Plan: Completed rehab (6) Chronic back pain: Code(s): M54.9 - Dorsalgia, unspecified; G89.29 - Other chronic pain Status: Acute Assessment and Plan: Continue home medication DS: Summary Time Spent with Patient Time attestation: Total time spent providing and/or coordinating discharge services:60 Exam Narrative: Exam Narrative: Const: General: comfortable and no acute distress HENMT: General nose exam: Normal nares present Mouth: Yes moist mucous membranes Eyes: Sclera: sclerae normal Pupils: Equal, round and reactive pupils present EOM: EOMs intact bilaterally Neck: Neck: supple and no JVD Resp: Effort & Inspection: normal respiratory effort Auscultation: clear to auscultation bilaterally, no rales, no rhonchi and no wheezes Cardio: Rate: regular rate Rhythm: regular rhythm Heart sounds: no gallops and no murmurs GI: Inspection: non-distended GI Palp: Yes Soft to palpation and No Tenderness to palpation present (GI) Skin: General skin exam:wound on the lateral left lower leg.improved Neuro: Cognition (Neuro): normal cognition Speech: normal speech Motor exam (neuro): 5/5 motor strength present throughout Sensory Exam: normal sensation Extrem: General: normal to inspection and no edema Psych: Mental Status: mental status grossly normal Affect: normal affect Discharge Plan Discharge Attending physician on discharge: Wliliam Reich Consulting providers: Jeremiah Michaud ; Jen Cortes Discharging Clinician: Jen Cortes Anticipated Discharge Date/Time: 06/29/20 12:22 Patient Disposition: Home, Self-Care Activity: as tolerated Diet: regular Wound Care Instructions: other - see discharge instructions Discharge Instructions: Take medications as prescribed. Follow up with Provider within 1-2 weeks. When do I need to call the doctor? Signs of infection. These include a fever of 100.4?F (38?C) or higher, chills, or wound that will not heal. Signs of wound infection. These include swelling, redness, warmth around the wound; too much pain when touched; yellowish, greenish, or bloody discharge; foul smell coming from the cut or wound site; wound site opens up; blisters form at the site. When cellulitis is on the face, any signs of spreading to the sinus or eye must be evaluated and treated right away to avoid a serious problem, called orbital cellulitis. This can lead to severe sinus infection, blindness,
[2020-06-29 16:00] VITALS: BP 130/60; PULSE 70; RESP 16; TEMP 36.6; O2SAT 94
--- NOTE | 2020-06-29 16:05 | PC.NURSE ---
DRESSING CHANGE DEMONSTRATION DONE WITH DAUGHTER SHE WILL BE PERFORMING DRESSING CHANGES DAILY AT HOME. DAUGHTER VERBALIZES UNDERSTANDING. DISCHARGE INSTRUCTIONS REVIEWED WITH PATIENT, OTHER DAUGHTER KERMIT WILL BE PICKING PATIENT UP BETWEEN 5:30 - 6PM. PT VERBALIZES UNDERSTANDING OF DISCHARGE INSTRUCTIONS, DAUGHTER KERMIT INFORMED VENEER JOINTER OFFBEARER THAT SHE WILL BE TAKING PATIENT TO HIS FOLLOW UP APPT ON 07/06. PT AWARE OF PRESCRIPTIONS SENT TO [facility] IN [place] PER REQUEST, OOP COST APPROX $24. SEVERAL WOUND CARE SUPPLIES SENT WITH PATIENT.
--- NOTE | 2020-06-29 23:11 | PM.EVENT ---
Event Note Event Note Event Note: I examined the patient reviewed the chart. I discussed the patient's care with Breanna Cortes APN and agree with her assessment and plan.
--- NOTE | 2020-07-06 12:45 | PC.NURSE ---
Attempted discharge call back x2. Unable to contact patient.
== END 2020-06-29 18:30 | disposition home or self-care (01) | DRG 949 ==
PROVIDERS: Nurse Practitioner; Admitting Provider Emergency Medicine; PCP Internal Medicine; Visit Provider Emergency Medicine
DX: S81.802D Unspecified open wound, left lower leg, subsequent encounter (principal); L03.116 Cellulitis of left lower limb; B95.62 Methicillin resistant Staphylococcus aureus infection as the cause of diseases classified elsewhere; M48.00 Spinal stenosis, site unspecified; F17.210 Nicotine dependence, cigarettes, uncomplicated; F12.90 Cannabis use, unspecified, uncomplicated; F11.90 Opioid use, unspecified, uncomplicated; D64.9 Anemia, unspecified; M62.81 Muscle weakness (generalized); S00.81XD Abrasion of other part of head, subsequent encounter; S50.311D Abrasion of right elbow, subsequent encounter
CPT/HCPCS: 80307; A9270; J1650; J3370

== ENCOUNTER 2020-07-05 15:50 | Outpatient (CLI) | payer MEDICARE, SELFPAY ==
[2020-07-05 16:10] LABS: Basophils Absolute Auto 0.08 K/mm3 (0.00-0.10); Basophils Percent Auto 0.8 % (0.0-1.0); Eosinophils Absolute Auto 0.75 K/mm3 (0.02-0.50); Eosinophils Percent Auto 7.9 % (1.0-6.0); Hematocrit 34.4 % (37.0-46.0); Hemoglobin 11.3 g/dL (12.4-15.3); Immature Granulocyte Absolute 0.03 K/mm3 (0.00-0.00); Immature Granulocyte Percent A 0.3 % (0.0-0.0); Lymphocytes Absolute Auto 2.13 K/mm3 (1.10-4.50); Lymphocytes Percent Auto 22.3 % (18.0-42.0); Mean Corpuscular HGB Conc 32.8 g/dL (32.0-36.0); Mean Corpuscular Hemoglobin 32.3 pg (27.0-31.0); Mean Corpuscular Volume 98.3 fL (78.0-102.0); Mean Platelet Volume 8.8 fl (8.7-11.0); Monocytes Absolute Auto 0.88 K/mm3 (0.10-0.90); Monocytes Percent Auto 9.2 % (2.0-11.0); Neutrophils Absolute Auto 5.7 K/mm3 (1.7-7.2); Neutrophils Percent Auto 59.5 % (50.0-70.0); Platelet Count Result 402 K/mm3 (150-420); Red Cell Distribution Width 13.7 % (11.6-14.4); White Blood Count 9.6 K/mm3 (4.8-10.8)
[2020-07-05 16:12] LABS: Add Urine Microscopic? NO; Appearance Urine Clear (Clear); Bilirubin Urine Negative (Negative); Blood Urine Negative (Negative); Color Urine Yellow (Yellow); Glucose Urine UA Negative (Negative); Ketones Urine Negative (Negative); Leukocyte Esterase Ur Negative (Negative); Nitrate Urine Negative (Negative); Protein Urine Negative (Negative); Urobilinogen Urine 0.2 mg/dL (0.2-1.0); pH Urine 7.5 (5.0-8.0)
[2020-07-05 16:43] LABS: Hemoglobin A1C 5.4 % (<5.7)
[2020-07-05 17:23] LABS: Alanine Aminotransferase 12 U/L (16-63); Albumin Level 3.2 g/dL (3.4-5.0); Alkaline Phosphatase 107 U/L (46-116); Anion Gap 7 mmol/L (8-16); Aspartate Amino Transferase 17 U/L (15-37); Bilirubin,Total 0.2 mg/dL (0.00-1.00); Blood Urea Nitrogen 8 mg/dL (7-18); Calcium 9.2 mg/dL (8.5-10.1); Carbon Dioxide 29 mmol/L (21-32); Chloride 100 mmol/L (98-108); Cholesterol 131 mg/dL (0-200); Estimated Glomerular Filt Rate > 60; Glucose 103 mg/dL (70-99); HDL Direct 50 mg/dL (40-60); LDL Cholesterol Calculated 69 mg/dL (<130); Osmolality Calculated 280 mOsm/kg (285-295); Potassium 5.1 mmol/L (3.5-5.1); Prostate Specific Antigen 2.5 ng/mL (< OR = 4.0); Sodium 136 mmol/L (136-145); Total Protein 6.1 g/dL (6.4-8.2); Triglycerides 58 mg/dL (0-150)
== END 2020-07-05 15:51 | disposition home or self-care (01) ==
LOC: CHSLAB 15:53
PROVIDERS: PCP Internal Medicine; Visit Provider Internal Medicine
DX: E78.2 Mixed hyperlipidemia (principal); I10 Essential (primary) hypertension; D63.8 Anemia in other chronic diseases classified elsewhere; R73.01 Impaired fasting glucose; R97.20 Elevated prostate specific antigen [PSA]
CPT/HCPCS: 36415; 80053; 80061; 81003; 83036; 84153; 85025

== ENCOUNTER 2020-08-04 14:57 | Emergency (ER) | payer MEDICARE, SELFPAY ==
--- NOTE | ~2020-08-04 | CT_ITS ---
EXAMINATION: CT brain wo con DATE: 08/04/2020 16:12 INDICATION: Head injury. TECHNIQUE: Computed tomography (CT) of the head was performed without intravenous contrast. The mA wa s adjusted according to patient size. Iterative reconstruction technique was employed. The dose-lengt h product was 354.92 mGy-cm. COMPARISON: Head CT 06/24/2020 FINDINGS: There is an old lacunar infarct in right caudate nucleus. There is a small old infarct in t he left cerebellum. There are scattered areas of low attenuation in the cerebral white matter. There is no intracranial hemorrhage, acute infarction, or abnormal intracranial mass lesion. The ventricles are normal in size. There is mucosal thickening in the paranasal sinuses. The orbits are normal. The re is soft tissue gas in right cheek. The mastoid air cells are normal. IMPRESSION: 1. 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 2. Stable mild nonspecific cerebral white matter disease, which likely represents chronic small vesse l ischemic disease. Reviewed, dictated and finalized at location B. EKEEPING DEPARTMENT WORKER IMPRESSION: 1. 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 2. Stable mild nonspecific cerebral white matter disease, which likely represen ts chronic small vessel ischemic disease.
--- NOTE | ~2020-08-04 | CT_ITS ---
EXAMINATION: CT facial bones wo con DATE: 08/04/2020 16:12 INDICATION: Face injury. TECHNIQUE: Computed tomography (CT) of the facial bones and maxillofacial region was performed withou t intravenous contrast. Automated exposure control and iterative reconstruction technique were employ ed. The dose-length product was 354.92 mGy-cm. COMPARISON: Head CT 06/24/2020 FINDINGS: There is mucosal thickening in the paranasal sinuses. There is soft tissue gas in right glendy ek. The orbits are normal. There is an old healed fracture of distal right clavicle. There is severe cervical spondylosis. IMPRESSION: 1. No acute fracture. Reviewed, dictated and finalized at location B. THE ROAD DRIVER IMPRESSION: 1. No acute fracture.
[2020-08-04 15:11] VITALS: BP 154/81; PULSE 86; RESP 14; TEMP 36.6; O2SAT 100
[2020-08-04 16:06] LABS: Basophils Absolute Auto 0.06 K/mm3 (0.00-0.10); Basophils Percent Auto 0.6 % (0.0-1.0); Eosinophils Absolute Auto 0.82 K/mm3 (0.02-0.50); Eosinophils Percent Auto 7.7 % (1.0-6.0); Hematocrit 33.9 % (37.0-46.0); Hemoglobin 10.9 g/dL (12.4-15.3); Immature Granulocyte Absolute 0.04 K/mm3 (0.00-0.00); Immature Granulocyte Percent A 0.4 % (0.0-0.0); Lymphocytes Absolute Auto 2.37 K/mm3 (1.10-4.50); Lymphocytes Percent Auto 22.4 % (18.0-42.0); Mean Corpuscular HGB Conc 32.2 g/dL (32.0-36.0); Mean Corpuscular Hemoglobin 31.2 pg (27.0-31.0); Mean Corpuscular Volume 97.1 fL (78.0-102.0); Mean Platelet Volume 9.3 fl (8.7-11.0); Monocytes Absolute Auto 0.63 K/mm3 (0.10-0.90); Monocytes Percent Auto 5.9 % (2.0-11.0); Neutrophils Absolute Auto 6.7 K/mm3 (1.7-7.2); Platelet Count Result 322 K/mm3 (150-420); Red Blood Count 3.49 M/mm3 (4.70-6.10); White Blood Count 10.6 K/mm3 (4.8-10.8)
[2020-08-04 16:25] LABS: BNP 79.7 pg/mL (0-100)
[2020-08-04 16:35] LABS: Alanine Aminotransferase 29 U/L (16-63); Albumin Level 3.6 g/dL (3.4-5.0); Alkaline Phosphatase 107 U/L (46-116); Anion Gap 4 mmol/L (8-16); Aspartate Amino Transferase 27 U/L (15-37); Bilirubin,Total 0.3 mg/dL (0.00-1.00); Blood Urea Nitrogen 11 mg/dL (7-18); Calcium 9.5 mg/dL (8.5-10.1); Carbon Dioxide 32 mmol/L (21-32); Chloride 100 mmol/L (98-108); Estimated CRCL calculation 57 ml/min; Estimated Glomerular Filt Rate > 60; Glucose 93 mg/dL (70-99); Osmolality Calculated 281 mOsm/kg (285-295); Potassium 3.9 mmol/L (3.5-5.1); Sodium 136 mmol/L (136-145); Total Protein 7.6 g/dL (6.4-8.2)
--- NOTE | 2020-08-04 17:04 | ED.FALL ---
HPI - Fall General Chief Complaint: Fall Stated Complaint: Amb Mode of arrival: EMS History of Present Illness HPI Narrative: this is a 70-year-old gentleman that presents via EMS after he sustained a fall earlier today after he was using fentanyl for his chronic back pain, was found by family and neighbors and was unresponsive EMS was called the patient was given Narcan intranasally and the patient arrived alert oriented and back to his normal baseline, vitals were stable patient is alert and oriented x3. Currently he does not recall having this fall and unresponsive episode. Apparently patient has a chronic back pain and his pain management doctors have not been prescribing his pain medication and the patient states that he finds other sources of pain medication. The patient was found unresponsive EMS upon arrival administered Narcan. The patient has a laceration to the right facial area no scalp lacerations no blurry vision no headache no nausea or vomiting no chest pain no shortness of breath. Patient was discharged approximately 2 to 3 weeks ago has a wound that is healing and bandage on his left lower extremity from cellulitis. Currently no fever chills no abdominal pain no diarrhea constipation. complaint: fall Onset (ago): hour(s) Fall from: other ( Unknown) Fall witnessed: no Place fall occurred: home Loss of consciousness: yes Length of LOC: minutes(s) Prolonged down time: no Symptoms prior to fall: other ( had taken fentanyl) Context: new medication Related Data Home Medications Medication Instructions Recorded Confirmed atenolol 25 mg PO DAILY 06/22/20 08/04/20 pravastatin 20 mg PO DAILY 06/22/20 08/04/20 tamsulosin 0.4 mg PO DAILY 06/22/20 08/04/20 carisoprodol 350 mg PO TID 08/04/20 08/04/20 ipratropium bromide 2 spray INTRANASAL TID 08/04/20 08/04/20 triamcinolone acetonide 1 applic TOPICAL TID 08/04/20 08/04/20 Allergies Allergy/AdvReac Type Severity Reaction Status Date / Time tetracycline Allergy Unknown Verified 06/22/20 04:30 Review of Systems Review of Systems: All systems reviewed & are unremarkable except as noted in HPI and below PMFSH Past Medical History Medical History Chronic back pain Spinal stenosis Social History Social History Years smoked: 50 Smoking status: Current every day smoker Tobacco type: cigarettes Smokeless tobacco user: other Second hand tobacco smoke exposure: Yes Alcohol intake: never Substance use: current Substance use type: marijuana and opiates Last use: 06/21/2020 Gender identity (if verbalized by the patient): Male Spiritual care concerns: No Exam Const: General: no acute distress Orientation/consciousness: patient oriented x3 HENMT: Head: normal to inspection, contusion and laceration Eyes: Conjunctivae: conjunctivae normal Pupils: Equal, round and reactive pupils present EOM: EOMs intact bilaterally Direct Ophthalmoscopy: no photophobia Neck: Neck: normal visual inspection, no lymphadenopathy and no meningeal signs Chest: Chest palpation & inspection: normal inspection of the chest Resp: Effort & Inspection: normal respiratory effort Auscultation: clear to auscultation bilaterally Cardio: Rate: regular rate Rhythm: regular rhythm GI: Auscultation: normal bowel sounds : Testes: Testes normal Back/Spine/Pelvis: Back: no CVA tenderness Skin: Other: Laceration right side of face near the nasal labial fold approximately 5cm in length well-approximated Neuro: General: patient oriented x3, moves all extremities, no meningeal signs, no focal motor deficits and CN's II-XI intact bilaterally Cranial nerves: Yes Nystagmus not present Extrem: General: normal to inspection and edema Psych: Mental Status: mental status grossly normal Affect: normal affect Attitude: cooperative Course Course Emergency C
[2020-08-04 17:11] VITALS: BP 133/71; PULSE 62; RESP 16; O2SAT 97
--- NOTE | 2020-08-04 17:33 | PCDIET ---
Pt trying to find a ride home.
--- NOTE | 2020-08-04 17:52 | PC.NURSE ---
Pt states his family is continuing to find him a ride home. no needs at this time.
[2020-08-04 19:50] VITALS: RESP 16; O2SAT 97
== END 2020-08-04 19:40 | disposition home or self-care (01) ==
PROVIDERS: Emergency Provider Emergency Medicine; PCP Internal Medicine
DX: F19.20 Other psychoactive substance dependence, uncomplicated (principal); S01.81XA Laceration without foreign body of other part of head, initial encounter; T40.2X1A Poisoning by other opioids, accidental (unintentional), initial encounter; W19.XXXA Unspecified fall, initial encounter; F17.200 Nicotine dependence, unspecified, uncomplicated
CPT/HCPCS: 12013; 36415; 70450; 70486; 80053; 80307; 83605; 83880; 85025; 87040; 99283; 99284

== ENCOUNTER 2020-12-15 14:40 | Outpatient (CLI) | payer MEDICARE, SELFPAY ==
[2020-12-15 15:05] LABS: Add Urine Microscopic? NO; Appearance Urine Clear (Clear); Basophils Absolute Auto 0.08 K/mm3 (0.00-0.10); Basophils Percent Auto 0.9 % (0.0-1.0); Bilirubin Urine Negative (Negative); Blood Urine Negative (Negative); Color Urine Yellow (Yellow); Eosinophils Percent Auto 10.2 % (1.0-6.0); Glucose Urine UA Negative (Negative); Hematocrit 32.1 % (37.0-46.0); Hemoglobin 10.2 g/dL (12.4-15.3); Immature Granulocyte Absolute 0.02 K/mm3 (0.00-0.00); Immature Granulocyte Percent A 0.2 % (0.0-0.0); Ketones Urine Negative (Negative); Leukocyte Esterase Ur Negative (Negative); Lymphocytes Absolute Auto 1.73 K/mm3 (1.10-4.50); Lymphocytes Percent Auto 19.6 % (18.0-42.0); Mean Corpuscular HGB Conc 31.8 g/dL (32.0-36.0); Mean Corpuscular Hemoglobin 30.1 pg (27.0-31.0); Mean Corpuscular Volume 94.7 fL (78.0-102.0); Monocytes Absolute Auto 0.61 K/mm3 (0.10-0.90); Monocytes Percent Auto 6.9 % (2.0-11.0); Neutrophils Absolute Auto 5.5 K/mm3 (1.7-7.2); Neutrophils Percent Auto 62.2 % (50.0-70.0); Nitrate Urine Negative (Negative); Platelet Count Result 379 K/mm3 (150-420); Protein Urine Negative (Negative); Red Blood Count 3.39 M/mm3 (4.70-6.10); Specific Grav Ur 1.025 (1.010-1.020); Urobilinogen Urine 0.2 mg/dL (0.2-1.0); White Blood Count 8.8 K/mm3 (4.8-10.8)
[2020-12-15 15:47] LABS: Estimated Glomerular Filt Rate > 60
[2020-12-15 15:50] LABS: Ferritin 80 ng/mL (26-388); Iron 66 ug/dL (65-175); Percent Iron Saturation 31 % (12-57)
[2020-12-15 15:57] LABS: Alanine Aminotransferase 25 U/L (16-63); Albumin Level 2.8 g/dL (3.4-5.0); Alkaline Phosphatase 97 U/L (46-116); Anion Gap 4 mmol/L (8-16); Aspartate Amino Transferase 20 U/L (15-37); Bilirubin,Total 0.3 mg/dL (0.00-1.00); Blood Urea Nitrogen 14 mg/dL (7-18); Calcium 8.8 mg/dL (8.5-10.1); Carbon Dioxide 33 mmol/L (21-32); Chloride 101 mmol/L (98-108); Cholesterol 146 mg/dL (0-200); Creatine Kinase 46 U/L (39-308); Free T3 2.41 pg/mL (2.18-3.98); Free T4 Free Thyroxine 1.04 ng/dL (0.76-1.46); Glucose 114 mg/dL (70-99); HDL Direct 41 mg/dL (40-60); LDL Cholesterol Calculated 87 mg/dL (<130); Osmolality Calculated 287 mOsm/kg (285-295); Prostate Specific Antigen 1.3 ng/mL (< OR = 4.0); Sodium 138 mmol/L (136-145); Thyroid Stimulating Hormone 0.22 uIU/mL (0.36-3.74); Total Protein 6.2 g/dL (6.4-8.2); Triglycerides 90 mg/dL (0-150); Vitamin B12 673 pg/mL (193-986)
== END 2020-12-15 14:41 | disposition home or self-care (01) ==
LOC: CHSLAB 14:45
PROVIDERS: PCP Internal Medicine; Visit Provider Internal Medicine
DX: R91.1 Solitary pulmonary nodule (principal); I73.9 Peripheral vascular disease, unspecified; D63.8 Anemia in other chronic diseases classified elsewhere; E78.2 Mixed hyperlipidemia; I11.0 Hypertensive heart disease with heart failure; I50.33 Acute on chronic diastolic (congestive) heart failure; R60.9 Edema, unspecified; R97.20 Elevated prostate specific antigen [PSA]; G60.3 Idiopathic progressive neuropathy; L03.119 Cellulitis of unspecified part of limb
CPT/HCPCS: 36415; 80053; 80061; 81003; 82550; 82607; 82728; 83540; 83550; 84153; 84439; 84443; 84481; 85025

== ENCOUNTER 2020-12-22 14:20 | Outpatient (CLI) | payer MEDICARE, SELFPAY ==
--- NOTE | ~2020-12-22 | CT_ITS ---
EXAMINATION:CT diagnostic chest w con DATE: 12/22/2020 15:16 INDICATION: Pulmonary nodule. TECHNIQUE: Computed tomography (CT) of the chest was performed with 120 mL Omnipaque 350 intravenous contrast. Automated exposure control and iterative reconstruction technique were employed. The dose-l ength product (DLP) was 213.06 mGy-cm. COMPARISON: Chest CT 03/03/2018 FINDINGS: There is mild emphysema. There are a few scattered chronic nodules in the lungs measuring u p to 4 mm, likely benign. There is mild scarring in the lungs bilaterally. No pleural effusion. The h eart size is normal. There are coronary artery calcifications. No pericardial effusion. There are lindsey dging endplate osteophytes at multiple levels in the spine, consistent with diffuse idiopathic skelet al hyperostosis (DISH). IMPRESSION: 1. Chronic small pulmonary nodules, likely benign. 2. Mild emphysema. Reviewed, dictated and finalized at location A.
--- NOTE | ~2020-12-22 | CT_ITS ---
EXAMINATION: CTA abd aorta runoff EXAM DATE: 12/22/2020 15:16 INDICATION: Pulmonary nodule bilateral iliac stenosis. Bilateral leg edema. Abdominal pain. TECHNIQUE: Spiral CTA abd aorta runoff was performed following intravenous injection of 120 mL Omnipa que 350. Axial, coronal and sagittal images were reviewed. Maximum intensity projection 3-D reconstr uctions of the arteries were created by the technologist on dedicated workstation. The dose-length product (DLP) for this examination was 911.39 mGy-cm. The exposure was tailored according to patient size (auto mA exposure control), and iterative reconstruction (ASIR) was used as additional dose red uction technique. Correlation is made to CT abdomen 10/05/2015. FINDINGS: ARTERIES: There is moderate bilateral aortoiliac arterial sclerosis. Tortuous iliac arteries bilatera lly. The celiac, superior mesenteric, renal, inferior mesenteric arteries are widely patent. Patient has bilateral hip replacements causing artifact limiting evaluation of the common femoral arteries. O nly mild right common iliac artery stenosis. Right leg: Moderate scattered superficial femoral arterial sclerosis with a short segment region of m ild to moderate stenosis at mid aspect. Moderate popliteal and trifurcation arteriosclerosis, but wit h 3 vessel runoff to the right foot. Left leg: More extensive arterial sclerosis in this leg than contralateral side with several regions of short segment femoral arterial moderate stenosis. Moderate to severe popliteal and proximal trifur cation arteriosclerosis, however there is also three-vessel runoff to the left foot. INCIDENTAL FINDINGS: Diffuse edema along the legs, especially below the knee. The popliteal veins are enhanced and nonthrombosed. Another lower extremity veins are not well opacified at time of imaging. Prostate and bladder not visualized from the metallic artifact. There is moderate amount of colonic stool and a distended but otherwise unremarkable gallbladder. Moderate to severe scoliosis. Solid org ans are unremarkable. Severe hyperinflation. IMPRESSION: 1. Scattered arteriosclerotic disease left leg more affected, but with three-vessel runoff to both f eet. 2. Severe calf and foot edema bilaterally. No popliteal venous thrombosis. Other portions of venous system not well opacified. 3. Constipation. Other chronic findings. Reviewed, dictated and finalized at location A. IMPRESSION: 1. Scattered arteriosclerotic disease left leg more affected, but with three-v essel runoff to both feet. 2. Severe calf and foot edema bilaterally. No popliteal venous thrombosis. Oth er portions of venous system not well opacified. 3. Constipation. Other chronic findings.
== END 2020-12-22 14:21 | disposition home or self-care (01) ==
LOC: CHSIMG 14:22
PROVIDERS: PCP Internal Medicine; Visit Provider Internal Medicine
DX: R91.1 Solitary pulmonary nodule (principal); I73.9 Peripheral vascular disease, unspecified
CPT/HCPCS: 71260; 75635; Q9967

== ENCOUNTER 2021-06-02 13:32 | Inpatient (IN) | payer MEDICARE, SELFPAY ==
[2021-06-02] VITALS (10 sets, daily range): BP systolic 151–179; BP diastolic 80–95; PULSE 82–95; RESP 18–20; TEMP 36.4–36.8; O2SAT 92–100
--- NOTE | ~2021-06-02 | CT_ITS ---
EXAMINATION: CT diagnostic chest wo con EXAM DATE: 06/03/2021 08:29 INDICATION: Pneumomediastinum . Shortness of breath. TECHNIQUE: Spiral CT of the chest without contrast. Axial, coronal and sagittal images of the chest were reviewed. Coronal maximum intensity pixel images of chest reviewed. The dose-length product ( DLP) for this examination was 134.19 mGy-cm. The exposure was tailored according to patient size (au to mA exposure control), and iterative reconstruction (ASIR) was used as additional dose reduction te [place]. Comparison is made to prior examination from yesterday. FINDINGS: Patchy moderate amount of right lower lobe, smaller amount of right middle lobe and left l ower lobe acute airspace disease consistent with pneumonia. This has progressed compared to yesterday . The pneumomediastinum appears unchanged. Small pleural effusions. Hyperinflation and emphysema. Tr acheobronchial tree is patent. There is no mediastinal, hilar or axillary lymphadenopathy. There is no pneumothorax. Narrow cardiac silhouette from hyperinflated lungs. There are dense coronary a rteries, could be severe coronary arterial sclerosis and/or coronary artery stent(s), which are diffi cult to distinguish due to cardiac motion on this non-gated exam. Correlate with cardiac history and consider cardiology consult if not recently evaluated. Upper abdomen is unremarkable. Subacute appea ring right rib fractures anteriorly. There is thoracic spondylosis without osteoblastic or osteolytic lesions identified. IMPRESSION: 1. Worsening right lower lobe predominant pneumonia. 2. Pneumomediastinum unchanged. No pneumothorax. 3. Hyperinflation and emphysema. 4. Small bilateral pleural effusions. 5. Dense coronary arteries or stents. Reviewed, dictated and finalized at location A.
--- NOTE | ~2021-06-02 | XR_ITS ---
XR chest 1V portable 06/04/2021 21:18 Indication: Shortness of breath. Covid positive. Procedure: AP portable chest Comparison: Comparison to multiple prior studies sequentially, with oldest reviewed study dated 03/12. Findings: Patchy bibasilar airspace disease, consistent with pneumonia. Minimal residual subcutaneous gas overlying the left shoulder. No significant effusion or pneumothorax. Impression: 1: Persistent patchy bibasilar airspace disease, compatible with pneumonia. Reviewed, dictated and finalized at location A. Impression: 1: Persistent patchy bibasilar airspace disease, compatible with pneumonia.
--- NOTE | ~2021-06-02 | CT_ITS ---
EXAMINATION: CT brain wo con EXAM DATE: 06/02/2021 14:25 INDICATION: Altered mental status, weakness, confusion, failure to thrive. TECHNIQUE: Spiral CT of the head was performed without contrast. Axial, coronal and sagittal images were reviewed. The dose-length product (DLP) for this examination was 917.61 mGy-cm. The exposure w as tailored according to patient size, and iterative reconstruction (ASIR) was used as additional dos e reduction technique. Comparison is made to prior examination from 08/04/2020. FINDINGS: There is gas within the retropharyngeal deep fascial planes, source uncertain. Correlating with chest x-ray same date, there is gas in the left axilla. Patient could have pneumomediastinum Sma ll old left occipital lobe infarction. Small old left occipital lobe infarction. There is no acute intraparenchymal hemorrhage. No evidence of intraparenchymal brain mass lesion. N o evidence of acute infarction. Please note that initial head CT has limited sensitivity for small o r acute infarctions. There is mild periventricular and subcortical hypodensity, nonspecific but proba hoa related to small vessel ischemic disease. There is mild prominence of the sulci and ventricles related to cerebral atrophy. There is intracranial carotid arteriosclerosis. There are no extra-ax ial collections. There is no mass effect or midline shift. The orbits are unremarkable. Soft tissu e is unremarkable. Mild mucoperiosteal thickening. IMPRESSION: 1. Retropharyngeal emphysema, source unknown. Consider pneumomediastinum. 2. 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 3. Atrophy and microangiopathy. Reviewed, dictated and finalized at location A.
--- NOTE | ~2021-06-02 | XR_ITS ---
EXAMINATION: XR chest 1V EXAM DATE: 06/04/2021 09:02 INDICATION: pneumomediastinum/COVID positive. TECHNIQUE: Portable AP frontal chest x-ray was obtained. Comparison is made to prior examination from 06/02/2021. FINDINGS: Patient is rotated to the right. There is near resolution of previously seen left axillary, neck emphysema from pneumomediastinum. There is developing patchy moderate amount of right mid and lower lung zone airspace disease most con sistent with pneumonia. No pneumothorax suspected. There are bony degenerative changes. Left humeral head rotator cuff repair anchors. The lungs are hyperinflated which can be seen with chronic obstruct brenna pulmonary disease (a clinical diagnosis of functional impairment), but is not diagnostic of it. N arrow cardiac silhouette. IMPRESSION: 1. Moderate amount of right-sided pneumonia. 2. Nearly resolved subcutaneous gas. Reviewed, dictated and finalized at location A.
--- NOTE | ~2021-06-02 | CT_ITS ---
EXAMINATION: CT chest abdomen pelvis w con DATE: 06/02/2021 18:36 CDT INDICATION: Lucency overlying the left shoulder on chest x-ray. Evaluate for pneumomediastinum. TECHNIQUE: Computed tomography (CT) of the chest, abdomen, and pelvis was performed with 100 cc Omnip aque 350 intravenous contrast. The dose-length product was 371.22 mGy-cm. Automated exposure control and iterative reconstruction technique were employed. COMPARISON: CT dated 12/22/2020 FINDINGS: CHEST/ABDOMEN/PELVIS CT: There is subcutaneous gas in the neck, left axilla and mediastinum, consistent with pneumomediastinum . Small right pleural effusion. No pneumothorax identified. Patchy bilateral groundglass nodules and consolidation involving the lower lobes and right middle lobe, consistent with pneumonia. There is em physema. No thoracic lymphadenopathy. Heart size normal. The liver, spleen, adrenal glands are unremarkable. There is heterogeneous enhancement of the kidneys , nonspecific. There is a lower pole cyst in the right kidney. There is atherosclerosis. There is mil d diffuse mesenteric edema, nonspecific. There is large amount retained fecal material in the rectum with air-fluid levels in the small bowel and colon, likely ileus. No free air identified. There are a re bilateral hip arthroplasties. There is advanced multilevel thoracic and lumbar spondylosis with sh aped scoliosis. IMPRESSION: 1. Patchy bilateral nodular groundglass opacification of the right middle and bilateral lower lobes, compatible with pneumonia. 2: Pneumomediastinum with subcutaneous gas extending into the neck and left axilla. 3: Small right pleural effusion. Reviewed, dictated and finalized at location A. IMPRESSION: 1. Patchy bilateral nodular groundglass opacification of the right middle and b ilateral lower lobes, compatible with pneumonia. 2: Pneumomediastinum with subcutaneous gas extending into the neck and left axi lla. 3: Small right pleural effusion.
--- NOTE | ~2021-06-02 | XR_ITS ---
EXAMINATION: XR abdomen NG/feed tube insert DATE: 06/07/2021 11:05 INDICATION: Nasogastric tube placement TECHNIQUE: A supine view of the abdomen and lower chest was obtained for evaluation of feeding tube placement. COMPARISON: CT dated 06/02/2021 FINDINGS: Nasogastric tube in the stomach with proximal side-port in the body of the stomach and distal tip in the region of the gastric pylorus. Visualized portions of the lungs are clear. Cardiomediastinal silh ouette is normal. Multiple gas-filled loops of bowel in the visualized upper abdomen suggesting an il eus. IMPRESSION: 1. Nasogastric tube in the stomach with distal tip near the pylorus. Consider withdrawal by 5 cm. 2. Multiple gas-filled loops of bowel suggesting an ileus. Reviewed, dictated and finalized at location A. IMPRESSION: 1. Nasogastric tube in the stomach with distal tip near the pylorus. Consider w ithdrawal by 5 cm. 2. Multiple gas-filled loops of bowel suggesting an ileus.
--- NOTE | ~2021-06-02 | XR_ITS ---
EXAMINATION: XR chest 1V portable DATE: 06/02/2021 14:24 INDICATION: Weakness. Confusion. Failure to thrive. TECHNIQUE: A single frontal view of the chest was obtained. COMPARISON: Chest 2 views 06/27/2015, chest CT 12/22/20 FINDINGS: There is no pneumonia, pleural effusion, or pneumothorax. The heart size is normal. There a re suture anchors in left humeral head. There is lucency overlying the left shoulder soft tissues. Th ere are old healed fractures. IMPRESSION: 1. Lucency overlying the left shoulder soft tissues suspicious for soft tissue gas. Chest CT is recom mended. Reviewed, dictated and finalized at location A. IMPRESSION: 1. Lucency overlying the left shoulder soft tissues suspicious for soft tissue gas. Chest CT is recommended.
--- NOTE | 2021-06-02 13:45 | ECG_ITS ---
Measurements Intervals [place] Rate: 86 P: 75 WY: 159 QRS: 65 QRSD: 104 T: 85 QT: 392 QTc: 470 Interpretive Statements SINUS RHYTHM CANNOT RULE OUT SEPTAL INFARCT, AGE INDETERMINATE T WAVE ABNORMALITY IN ANTERIOR LEADS- CONSIDER ISCHEMIA BASELINE ARTIFACT- I, II, III, AVR, AVL, AVF, V1-V6 ABNORMAL ECG Electronically Signed On 06-02-2021 19:10:43 CDT by Marlon Hardy D.O.
--- NOTE | 2021-06-02 13:52 | ED.WEAKNESS ---
HPI - Weakness General Chief complaint: Weakness Stated complaint: ambulance Time Seen by Provider: 06/02/21 13:33 Source: patient, EMS and RN notes reviewed Mode of arrival: EMS Limitations: no limitations History of Present Illness HPI Narrative: Pt was sitting in a chair at home x 4 days. Incontinent, with early bed-sores. no acute documented fever, SOB or neurological deficits. MD Complaint: generalized weakness, lack of energy and difficulty walking Onset (ago): day(s) (4) Duration: constant Location: generalized Migration: none Severity: moderate Severity scale (1-10): 3 Quality: numbness Relieving factors: none Exacerbating factors: none Context: recent illness Associated symptoms: loss of appetite Related Data Home Medications Medication Instructions Recorded Confirmed atenolol 25 mg PO DAILY 06/22/20 06/02/21 pravastatin 20 mg PO DAILY 06/22/20 06/02/21 tamsulosin 0.4 mg PO DAILY 06/22/20 06/02/21 carisoprodol 350 mg PO TID 08/04/20 06/02/21 triamcinolone acetonide 1 applic TOPICAL TID 08/04/20 06/02/21 Allergies Allergy/AdvReac Type Severity Reaction Status Date / Time tetracycline Allergy Unknown Verified 06/02/21 13:42 Review of Systems Review of Systems: All systems reviewed & are unremarkable except as noted in HPI and below Musculoskeletal: Musculoskeletal: Reports back pain Neurologic: Reports weakness PMFSH Past Medical History Medical History (Updated 06/04/21 @ 09:44 by OMAR KolbP-C) Cellulitis Chronic back pain Spinal stenosis Social History Social History Years smoked: 50 Smoking status: Former smoker Tobacco type: cigarettes Smokeless tobacco user: other Second hand tobacco smoke exposure: Yes Alcohol intake: former Substance use: current Substance use type: marijuana and opiates Last use: 06/21/2020 Gender identity (if verbalized by the patient): Male Spiritual care concerns: No Exam Const: General: no acute distress, alert and ill appearing Nutritional Appearance: thin Orientation/consciousness: patient oriented x3 HENMT: Head: normal to inspection Ears: external ears normal General nose exam: Normal external nose present and Normal nares present Eyes: Conjunctivae: conjunctivae normal Pupils: Equal, round and reactive pupils present EOM: EOMs intact bilaterally Neck: Neck: normal visual inspection and no meningeal signs Chest: Chest palpation & inspection: normal inspection of the chest Resp: Effort & Inspection: normal respiratory effort Auscultation: clear to auscultation bilaterally Cardio: Rate: regular rate Rhythm: regular rhythm GI: GI Palp: Yes Soft to palpation Auscultation: normal bowel sounds : General: Yes no CVA tenderness Male General Exam: Yes normal external exam Back/Spine/Pelvis: Other: early pressure ulcers Skin: General skin exam: normal color Rashes: no rashes Neuro: General: patient oriented x3, moves all extremities, no meningeal signs, no focal motor deficits and CN's II-XI intact bilaterally Extrem: Other: cachexia and bilateral leg cellulitis, with dressings in situ. healing right leg wounds 2cm diameter and 0.8 cm diameter. Psych: Appearance: disheveled Mental Status: mental status grossly normal Attitude: cooperative Thought content: Yes Depressive thoughts present Course Course Emergency Course: Pt was ill in the ED. For admission to Food And Beverage Associate care for review by Auto Air Conditioning Installer and/or Cardio-thoracic MD. Reevaluation(s) Reevaluation #1: pt had less back ache. Date: 06/02/21 Time: 14:43 Vital Signs Vital signs: Vital Signs Temperature 36.8 C 06/02/21 13:35 Pulse Rate 92 06/02/21 13:35 Respiratory Rate 20 06/02/21 13:35 Blood Pressure 155/80 H 06/02/21 13:35 Pulse Oximetry 92 06/02/21 13:35 Temperature 36.8 C 06/05/21 00:00 Pulse Rate 89 06/05/21 00:00 Respiratory Rate 18
[2021-06-02] MEDS: SODIUM CHLORIDE 0.9% IV 1,000 ML 150 ML IV CONT (14:00)
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
[2021-06-02 14:12] LABS: Basophils Absolute Auto 0.01 K/mm3 (0.00-0.10); Basophils Percent Auto 0.1 % (0.0-1.0); Hematocrit 38.9 % (37.0-46.0); Hemoglobin 13.3 g/dL (12.4-15.3); Immature Granulocyte Percent A 0.8 % (0.0-0.0); Lymphocytes Absolute Auto 1.45 K/mm3 (1.10-4.50); Lymphocytes Percent Auto 11.2 % (18.0-42.0); Mean Corpuscular HGB Conc 34.2 g/dL (32.0-36.0); Mean Corpuscular Hemoglobin 30.2 pg (27.0-31.0); Mean Corpuscular Volume 88.2 fL (78.0-102.0); Mean Platelet Volume 9.3 fl (8.7-11.0); Monocytes Absolute Auto 0.65 K/mm3 (0.10-0.90); Neutrophils Absolute Auto 10.7 K/mm3 (1.7-7.2); Neutrophils Percent Auto 82.9 % (50.0-70.0); Platelet Count Result 245 K/mm3 (150-420); Red Blood Count 4.41 M/mm3 (4.70-6.10); Red Cell Distribution Width 14.6 % (11.6-14.4); White Blood Count 12.9 K/mm3 (4.8-10.8)
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
[2021-06-02 14:30] LABS: Alanine Aminotransferase 35 U/L (16-63); Albumin Level 2.6 g/dL (3.4-5.0); Alkaline Phosphatase 120 U/L (46-116); Anion Gap 12 mmol/L (8-16); Aspartate Amino Transferase 66 U/L (15-37); Bilirubin,Total 0.4 mg/dL (0.00-1.00); Blood Urea Nitrogen 21 mg/dL (7-18); Calcium 8.3 mg/dL (8.5-10.1); Carbon Dioxide 26 mmol/L (21-32); Chloride 91 mmol/L (98-108); Creatine Kinase 18 U/L (39-308); Estimated Glomerular Filt Rate > 60; Glucose 153 mg/dL (70-99); Lactic Acid Reflex 1.6 mmol/L (0.4-2.0); Osmolality Calculated 274 mOsm/kg (285-295); Potassium 3.7 mmol/L (3.5-5.1); Sodium 129 mmol/L (136-145); Total Protein 5.9 g/dL (6.4-8.2); Troponin I 15.2 ng/L (0.00-60.4)
--- NOTE | 2021-06-02 14:50 | PC.NURSE ---
pt repositioned on right side for comfort. resp even and non-labored. iv infusing without sx of infiltration. denies need to void at this time.
[2021-06-02 15:36] LABS: Appearance Urine Clear (Clear); Bilirubin Urine 1+ (Negative); Color Urine Light Yellow (Yellow); Glucose Urine UA Negative (Negative); Ketones Urine 2+ (Negative); Leukocyte Esterase Ur Negative (Negative); Nitrate Urine Negative (Negative); Protein Urine 1+ (Negative); Specific Grav Ur >= 1.030 (1.010-1.020); Urobilinogen Urine 0.2 mg/dL (0.2-1.0)
[2021-06-02 15:41] LABS: Add Urine Microscopic? YES; Blood Urine Trace-Intact (Negative); RBC Urine 0-2 /hpf (0-2); WBC Urine 0-3 /hpf (0-3)
[2021-06-02 15:42] LABS: Bacteria Urine 3+ /hpf; Mucus Urine Few /lpf; Squamous Epithelial Cell Urine Rare /hpf (Few)
[2021-06-02] MEDS: SODIUM CHLORIDE 0.9% IV 1,000 ML 100 ML IV CONT (16:13)
--- NOTE | 2021-06-02 16:14 | PC.NURSE ---
photos imported #[id number] today, noted to have incorrect date on camera after import made. dr green observed wounds to right lower leg and left 2nd toe. left open at this time for wound protocol per admit nurse per dr green
--- NOTE | 2021-06-02 17:46 | PC.NURSE ---
sarah pina notified of pt admission to er and hospital per pt request.
[2021-06-02] MEDS: ACETAMINOPHEN 325 MG TABLET 650 MG PO (18:44)
[2021-06-02] MEDS: SODIUM CHLORIDE 0.9% IV 500 ML 999 ML IV CONT (18:45)
[2021-06-02 19:35] LABS: SARS-CoV-2 Ag Positive (Negative)
[2021-06-02] MEDS: AZITHROMYCIN 250 MG TABLET 500 MG PO (19:36)
--- NOTE | 2021-06-02 19:43 | PC.NURSE ---
1510 pt had oxygen on , requested to be removed. sapo2 100%. [address] green, dr green requested oxygen reapplied. pt voiced understanding.
--- NOTE | 2021-06-02 20:33 | PC.NURSE ---
report to KIMMIE anthony
--- NOTE | 2021-06-02 20:43 | PC.NURSE ---
Janusz Called spoke to [facility], has no beds, refused to let our MD speak to their MD. [facility] no beds in system, [facility] no beds in system
--- NOTE | 2021-06-02 21:53 | PC.NURSE ---
CONT UNABLE TO FIND OUTSIDE HOSP FOR ADMIT. PATIENT STABLE, WILL DO ER HOLD
[2021-06-02] MEDS: MORPHINE SULFATE (*CRX) 2 MG/ML INJ (22:22)
--- NOTE | 2021-06-02 22:44 | PC.NURSE ---
REPORT TO DARIAN, TO ROOM 212, ER HOLD
--- NOTE | 2021-06-02 23:00 | PC.NURSE ---
Patient was brought to room 212 as an ER hold at 2300 on 06/02/21. Patient was calling for a bedpan when he was brought in the room, and as soon as the patient was transferred to the bed from the stretcher, he was placed on the bedpan. Patient yelled out when the bedpan was placed, as he had pressure ulcers on his buttocks. After he finished a large bowel movement, formed and brown, patient was changed out of his dirty gown, and pulled up in bed. Patient stated he was cold, so warm blankets were placed next to his skin, with his other blankets brought over him. Cardiac monitoring was ordered for the patient, so a monitor was placed, but did not work. After the battery was changed, followed by changing the patches, then the leads, and finally the entire box, the telemetry began to work.
[2021-06-03] VITALS (10 sets, daily range): BP systolic 164–180; BP diastolic 90–103; PULSE 80–101; RESP 18–26; TEMP 36.4–36.6; O2SAT 97–100; BMI 10.7
[2021-06-03] MEDS: MORPHINE SULFATE (*CRX) 2 MG/ML INJ IV PUSH ×2 (00:07→05:58)
[2021-06-03] MEDS: SODIUM CHLORIDE 0.9% IV 1,000 ML 100 ML IV CONT ×3 (00:12→23:11)
--- NOTE | 2021-06-03 02:10 | PC.NURSE ---
Completed patient rounding. Patient needed to use the urinal, and asked for something to keep his heels from hurting. Patient was able to use the urinal once it was placed for him. Heel protectors were also placed.
--- NOTE | 2021-06-03 05:15 | PC.NURSE ---
completed patient rounding. Patient needed to use the urinal. Patient has had 500 mL urine output since he came to the floor. He had a large bowel movement since he came to the floor. He has not had any other output since 2300 last night. Patient asked for and received a Corrie Mist, and has drank about half (approximately 275 mL).
[2021-06-03 05:31] LABS: Basophils Absolute Auto 0.02 K/mm3 (0.00-0.10); Basophils Percent Auto 0.2 % (0.0-1.0); Hematocrit 37.4 % (37.0-46.0); Hemoglobin 12.8 g/dL (12.4-15.3); Immature Granulocyte Absolute 0.18 K/mm3 (0.00-0.00); Immature Granulocyte Percent A 1.4 % (0.0-0.0); Lymphocytes Absolute Auto 1.66 K/mm3 (1.10-4.50); Mean Corpuscular HGB Conc 34.2 g/dL (32.0-36.0); Mean Corpuscular Hemoglobin 29.8 pg (27.0-31.0); Mean Platelet Volume 9.8 fl (8.7-11.0); Monocytes Absolute Auto 0.47 K/mm3 (0.10-0.90); Monocytes Percent Auto 3.7 % (2.0-11.0); Neutrophils Absolute Auto 10.4 K/mm3 (1.7-7.2); Neutrophils Percent Auto 81.7 % (50.0-70.0); Platelet Count Result 236 K/mm3 (150-420); Red Cell Distribution Width 14.5 % (11.6-14.4); White Blood Count 12.8 K/mm3 (4.8-10.8)
[2021-06-03 05:50] LABS: Alanine Aminotransferase 24 U/L (16-63); Albumin Level 2.3 g/dL (3.4-5.0); Alkaline Phosphatase 107 U/L (46-116); Anion Gap 8 mmol/L (8-16); Aspartate Amino Transferase 50 U/L (15-37); Bilirubin,Total 0.4 mg/dL (0.00-1.00); Blood Urea Nitrogen 13 mg/dL (7-18); Calcium 8.2 mg/dL (8.5-10.1); Carbon Dioxide 27 mmol/L (21-32); Chloride 98 mmol/L (98-108); Estimated Glomerular Filt Rate > 60; Glucose 80 mg/dL (70-99); Osmolality Calculated 275 mOsm/kg (285-295); Sodium 133 mmol/L (136-145); Total Protein 5.4 g/dL (6.4-8.2)
--- NOTE | 2021-06-03 08:07 | PC.NURSE ---
to imaging for ct chest
--- NOTE | 2021-06-03 08:23 | PC.NURSE ---
returned from imaging, back to bed, call light in hand
--- NOTE | 2021-06-03 09:05 | PC.NURSE ---
Patient changed to inpatient.
[2021-06-03 09:25] LABS: INR 1.2; Prothrombin Time 12.7 Seconds (9.50-12.10)
[2021-06-03] MEDS: DEXAMETHASONE SOD PHOS INJ 4 MG/ML VIAL 6 MG IV PUSH (10:08)
[2021-06-03] MEDS: PRAVASTATIN SODIUM 20 MG TABLET PO (10:09)
[2021-06-03] MEDS: TAMSULOSIN HCL 0.4 MG CAPSULE PO (10:09)
[2021-06-03] MEDS: atenoloL 25 MG TABLET PO (10:09)
[2021-06-03] MEDS: REMDESIVIR 200 MG/NS 250 ML 200 MG/250 ML BAG 250 MG IVPB (10:09)
[2021-06-03] MEDS: AZITHROMYCIN 250 MG TABLET 500 MG PO (10:09)
--- NOTE | 2021-06-03 11:45 | PM.IMHP ---
H&P: HPI History of Present Illness Date/Time: 06/03/21 11:45 this is a 71-year-old male that presented to the emergency department due to weakness according to notes patient sat in a chair for 4 days and was incontinent. Patient has a past medical history of cellulitis, chronic back pain, spinal stenosis and substance abuse. Patient is a poor historian while assessing patient I asked for details concerning his admission the only thing he would say was he heard he was diagnosed with Covid. I asked him before admission any have any symptoms or any complaints. Patient notes that he was sick. Was unable to go into detail. After later questioning in the patient he noted that he had diarrhea for couple of days. He was unable to tell me whether he had shortness of breath. WBCs 12.9 hemoglobin 13.3, hematocrit 38.9, platelets 245, sodium 129, potassium 3.7, BUN 21, creatinine 0.80, glucose 153, lactic acid 1.6, AST 66, ALT 35, urine with protein ketones blood bili bacteria and mucus, Covid positive ,CT indicates worsening pneumonia along with pneumomediastinum and small bilateral pleural effusion, EKG sinus rhythm with a heart rate of 86 . Patient being admitted for Covid pneumonia, failure to thrive, and malnutrition. Patient only complaint is that he is weak and fatigued. When asked the patient was a drug abuser he originally said no. I did explain to him that I will need to prescribe him medication for withdrawal symptoms and would need to know which drugs he usually uses.. Patient notes that he occasionally does note that the a.m. snorts fentanyl. Patient currently resides with his cousin who has been reported for geriatric abuse. Patient will need placement after discharge Time spent 60 minutes Patient Chief Complaint: Weakness Review of Systems Review of Systems: A 14 organ system Review of Systems was performed and pertinent positives included in the HPI, otherwise remaining ROS is negative. [facility] Past Medical History Medical History (Updated 06/03/21 @ 12:53 by PADDY Kolb) Cellulitis Chronic back pain Spinal stenosis Social History Social History Years smoked: 50 Smoking status: Former smoker Tobacco type: cigarettes Smokeless tobacco user: other Second hand tobacco smoke exposure: Yes Alcohol intake: former Substance use: current Substance use type: marijuana and opiates Last use: 06/21/2020 Gender identity (if verbalized by the patient): Male Spiritual care concerns: No Meds Home Medications and Allergies Home Medications Medication Instructions Recorded Confirmed Type atenolol 25 mg PO DAILY 06/22/20 06/02/21 History pravastatin 20 mg PO DAILY 06/22/20 06/02/21 History tamsulosin 0.4 mg PO DAILY 06/22/20 06/02/21 History carisoprodol 350 mg PO TID 08/04/20 06/02/21 History triamcinolone acetonide 1 applic TOPICAL TID 08/04/20 06/02/21 History Allergies Allergy/AdvReac Type Severity Reaction Status Date / Time tetracycline Allergy Unknown Verified 06/02/21 13:42 Vital Signs Vital Signs - 24 hr 06/02/21 13:35 06/02/21 15:10 06/02/21 16:17 Temperature 98.2 F 97.6 F Pulse Rate 92 95 83 Respiratory Rate 20 20 Blood Pressure 155/80 H 155/80 H Pulse Oximetry 92 100 06/02/21 17:33 06/02/21 18:42 06/02/21 19:45 Temperature 97.6 F 97.6 F 97.6 F Pulse Rate 93 90 84 Respiratory Rate 20 20 20 Blood Pressure 179/94 H 173/95 H 156/88 H Pulse Oximetry 100 100 100 06/02/21 20:30 06/02/21 20:50 06/02/21 21:18 Temperature 97.6 F Pulse Rate 88 85 82 Respiratory Rate 18 18 18 Blood Pressure 160/80 H 162/88 H 158/88 H Pulse Oximetry 100 100 100 06/02/21 23:30 06/03/21 00:00 06/03/21 00:30 Temperature 97.5 F L 97.5 F L 97.9 F Pulse Rate 89 101 H 84 Respiratory Rate 20 20 20 Blood Pressure 151/88 H 164/96 H 172/97 H Pulse Oximetry 100 99 100 06/03/21 01:00 06/03/21 04:00 06/03/21 07:35 Kylie
[2021-06-03 13:05] LABS: Amphetamine Screen Urine Positive (Negative); Barbiturate Screen Urine Negative (Negative); Benzodiazepines Screen Urine Negative (Negative); Cannabinoid Screen Urine Negative (Negative); Cocaine Screen Urine Negative (Negative); Methadone Screen Urine Negative (Negative); Opiate Screen Urine Negative (Negative); Phencyclidine Screen Urine Negative (Negative)
[2021-06-03] MEDS: HYDROcodone/acetaminophen (*CRX) 7.5-325 MG TABLET 1 TAB PO ×2 (14:04→21:25)
[2021-06-03] MEDS: MEGESTROL ACETATE (*CHEMO) 40 MG TABLET PO ×3 (14:04→21:25)
[2021-06-03] MEDS: ESCITALOPRAM OXALATE 5 MG TABLET PO (14:04)
[2021-06-03] MEDS: ENOXAPARIN 40 MG/0.4 ML SYRINGE 30 MG SUB-Q (21:23)
[2021-06-03] MEDS: traZODone HCL 50 MG TABLET PO (21:26)
[2021-06-04] VITALS: BP 174/93; PULSE 63; RESP 20; TEMP 36.6; O2SAT 98
[2021-06-04] MEDS: HYDROcodone/acetaminophen (*CRX) 7.5-325 MG TABLET 1 TAB PO ×3 (05:23→21:18)
[2021-06-04 05:24] VITALS: O2SAT 98
[2021-06-04 05:37] LABS: Basophils Absolute Auto 0.01 K/mm3 (0.00-0.10); Basophils Percent Auto 0.1 % (0.0-1.0); Hematocrit 39.9 % (37.0-46.0); Hemoglobin 14.1 g/dL (12.4-15.3); Immature Granulocyte Absolute 0.06 K/mm3 (0.00-0.00); Immature Granulocyte Percent A 0.7 % (0.0-0.0); Lymphocytes Absolute Auto 1.75 K/mm3 (1.10-4.50); Lymphocytes Percent Auto 19.4 % (18.0-42.0); Mean Corpuscular HGB Conc 35.3 g/dL (32.0-36.0); Mean Corpuscular Hemoglobin 30.1 pg (27.0-31.0); Mean Corpuscular Volume 85.3 fL (78.0-102.0); Mean Platelet Volume 9.8 fl (8.7-11.0); Monocytes Absolute Auto 0.53 K/mm3 (0.10-0.90); Monocytes Percent Auto 5.9 % (2.0-11.0); Neutrophils Absolute Auto 6.7 K/mm3 (1.7-7.2); Neutrophils Percent Auto 73.9 % (50.0-70.0); Platelet Count Result 286 K/mm3 (150-420); Red Blood Count 4.68 M/mm3 (4.70-6.10); Red Cell Distribution Width 14.4 % (11.6-14.4)
[2021-06-04 05:45] VITALS: BP 164/97; PULSE 83
[2021-06-04 05:55] LABS: Alanine Aminotransferase 27 U/L (16-63); Albumin Level 2.2 g/dL (3.4-5.0); Alkaline Phosphatase 104 U/L (46-116); Anion Gap 9 mmol/L (8-16); Aspartate Amino Transferase 41 U/L (15-37); Bilirubin,Total 0.3 mg/dL (0.00-1.00); Blood Urea Nitrogen 13 mg/dL (7-18); Carbon Dioxide 26 mmol/L (21-32); Chloride 99 mmol/L (98-108); Estimated Glomerular Filt Rate > 60; Glucose 154 mg/dL (70-99); Osmolality Calculated 281 mOsm/kg (285-295); Potassium 2.8 mmol/L (3.5-5.1); Sodium 134 mmol/L (136-145); Total Protein 5.3 g/dL (6.4-8.2)
[2021-06-04 06:07] LABS: CRP 9.6 mg/dL (0.0-0.9); Magnesium 1.3 mg/dL (1.8-2.4)
[2021-06-04 06:11] LABS: Alanine Aminotransferase 28 U/L (16-63)
[2021-06-04 06:18] LABS: INR 1.2; Prothrombin Time 13.1 Seconds (9.50-12.10)
[2021-06-04] MEDS: KCL 20 MEQ/SW 100 ML 100 ML 50 MEQ IVPB (07:34)
[2021-06-04 08:00] VITALS: BP 154/78; PULSE 86; RESP 18; TEMP 37; O2SAT 98
[2021-06-04] MEDS: SODIUM CHLORIDE 0.9% IV 1,000 ML 100 ML IV CONT ×2 (09:15→21:17)
--- NOTE | 2021-06-04 09:30 | P.PN_ITS ---
Progress Note: A&P Assessment and Plan (1) COVID-19 determined by clinical diagnostic criteria: Code(s): U07.1 - COVID-19 <PADDY Kolb - Last Filed: 06/04/21 09:44> Status: Acute <ARNOLD KolbC - Last Filed: 06/04/21 09:44> Assessment and Plan: * Patient with dexamethasone and remdesivir * Will possibly discontinue remdesivir patient is not having any respiratory symptoms * Tested positive for Covid on 06/02/21 <Jen Cortes JARET-C - Last Filed: 06/04/21 09:44> (2) Pneumonia: Qualifiers: Laterality: bilateral Lung location: unspecified part of lung Pneumonia type: due to unspecified organism Qualified Code(s): J18.9 - Pneumonia, unspecified organism <Jen Cortes PADDY - Last Filed: 06/04/21 09:44> Code(s): J18.9 - Pneumonia, unspecified organism <Jen Cortes PADDY - Last Filed: 06/04/21 09:44> Status: Acute <PADDY Kolb - Last Filed: 06/04/21 09:44> Assessment and Plan: * X-ray indicates pneumonia possibly Covid pneumonia more than likely viral * Will continue azithromycin cefdinir for now blood cultures pending. If blood cultures are negative will discontinue antibiotics * Continue as needed albuterol and supplementary oxygen <Jen Cortes PADDY - Last Filed: 06/04/21 09:44> (3) Pneumomediastinum: Code(s): J98.2 - Interstitial emphysema <Jen Cortes JARET-C - Last Filed: 06/04/21 09:44> Status: Acute <Jen Cortes PADDY - Last Filed: 06/04/21 09:44> Assessment and Plan: * Stable * Pneumomediastinum with subcutaneous gas extending into the neck and left axilla <Jen Cortes JARET-C - Last Filed: 06/04/21 09:44> (4) Chronic back pain: Code(s): M54.9 - Dorsalgia, unspecified; G89.29 - Other chronic pain <JARET Kolb-C - Last Filed: 06/04/21 09:44> Status: Acute <PADDY Kolb - Last Filed: 06/04/21 09:44> Assessment and Plan: * Continue Tylenol along with tramadol and [place] <JARET Kolb-C - Last Filed: 06/04/21 09:44> (5) Generalized muscle weakness: Code(s): M62.81 - Muscle weakness (generalized) <JARET Kolb-C - Last Filed: 06/04/21 09:44> Status: Acute <PADDY Kolb - Last Filed: 06/04/21 09:44> Assessment and Plan: * Due to not malnutrition * Will start PT OT when appropriate <PADDY Kolb - Last Filed: 06/04/21 09:44> (6) Hyponatremia: Code(s): E87.1 - Hypo-osmolality and hyponatremia <JARET Kolb-C - Last Filed: 06/04/21 09:44> Status: Acute <PADDY Kolb - Last Filed: 06/04/21 09:44> Assessment and Plan: * Sodium 129>133>134 * Secondary to malnutrition and dehydration * Continue IV fluid <ARNOLD KolbC - Last Filed: 06/04/21 09:44> (7) Elevated BUN: Code(s): R79.9 - Abnormal finding of blood chemistry, unspecified <ARNOLD KolbC - Last Filed: 06/04/21 09:44> Status: Acute <PADDY Kolb - Last Filed: 06/04/21 09:44> Assessment and Plan: * Resolved * Slightly elevated BUN 21>13 * Secondary to dehydration <JARET Kolb-C - Last Filed: 06/04/21 09 :44> (8) Elevated AST (SGOT): Code(s): R74.01 - Elevation of levels of liver transaminase levels <JARET Kolb-C - Last Filed: 06/04/21 09:44> Status: Acute <PADDY Kolb - Last Filed: 06/04/21 09:44> Assessment and Plan:
--- NOTE | 2021-06-04 09:30 | WPDPN ---
Progress Note: A&P Assessment and Plan (1) COVID-19 determined by clinical diagnostic criteria: Code(s): U07.1 - COVID-19 <PADDY Kolb - Last Filed: 06/04/21 09:44> Status: Acute <JARET Kolb-C - Last Filed: 06/04/21 09:44> Assessment and Plan: Patient with dexamethasone and remdesivir Will possibly discontinue remdesivir patient is not having any respiratory symptoms Tested positive for Covid on 06/02/21 <Jen Cortes JARET-C - Last Filed: 06/04/21 09:44> (2) Pneumonia: Qualifiers: Laterality: bilateral Lung location: unspecified part of lung Pneumonia type: due to unspecified organism Qualified Code(s): J18.9 - Pneumonia, unspecified organism <Jen Cortes PADDY - Last Filed: 06/04/21 09:44> Code(s): J18.9 - Pneumonia, unspecified organism <Jen Cortes PADDY - Last Filed: 06/04/21 09:44> Status: Acute <JARET Kolb-C - Last Filed: 06/04/21 09:44> Assessment and Plan: X-ray indicates pneumonia possibly Covid pneumonia more than likely viral Will continue azithromycin cefdinir for now blood cultures pending. If blood cultures are negative will discontinue antibiotics Continue as needed albuterol and supplementary oxygen <Jen Cortes JARET-Brittny - Last Filed: 06/04/21 09:44> (3) Pneumomediastinum: Code(s): J98.2 - Interstitial emphysema <Jen Cortes JARET-C - Last Filed: 06/04/21 09:44> Status: Acute <Jen Cortes JARET-Brittny - Last Filed: 06/04/21 09:44> Assessment and Plan: Stable Pneumomediastinum with subcutaneous gas extending into the neck and left axilla <Jen Cortes JARET-C - Last Filed: 06/04/21 09:44> (4) Chronic back pain: Code(s): M54.9 - Dorsalgia, unspecified; G89.29 - Other chronic pain <ARNOLD KolbC - Last Filed: 06/04/21 09:44> Status: Acute <PADDY Kolb - Last Filed: 06/04/21 09:44> Assessment and Plan: Continue Tylenol along with tramadol and [place] <JARET Kolb-C - Last Filed: 06/04/21 09:44> (5) Generalized muscle weakness: Code(s): M62.81 - Muscle weakness (generalized) <ARNOLD KolbC - Last Filed: 06/04/21 09:44> Status: Acute <PADDY Kolb - Last Filed: 06/04/21 09:44> Assessment and Plan: Due to not malnutrition Will start PT OT when appropriate <PADDY Kolb - Last Filed: 06/04/21 09:44> (6) Hyponatremia: Code(s): E87.1 - Hypo-osmolality and hyponatremia <ARNOLD KolbC - Last Filed: 06/04/21 09:44> Status: Acute <PADDY Kolb - Last Filed: 06/04/21 09:44> Assessment and Plan: Sodium 129>133>134 Secondary to malnutrition and dehydration Continue IV fluid <ARNOLD KolbC - Last Filed: 06/04/21 09:44> (7) Elevated BUN: Code(s): R79.9 - Abnormal finding of blood chemistry, unspecified <ARNOLD KolbC - Last Filed: 06/04/21 09:44> Status: Acute <PADDY Kolb - Last Filed: 06/04/21 09:44> Assessment and Plan: Resolved Slightly elevated BUN 21>13 Secondary to dehydration <PADDY Kolb - Last Filed: 06/04/21 09:44> (8) Elevated AST (SGOT): Code(s): R74.01 - Elevation of levels of liver transaminase levels <JARET Kolb-C - Last Filed: 06/04/21 09:44> Status: Acute <PADDY Kolb - Last Filed: 06/04/21 09:44> Assessment and Plan: Resolved AST66>50 Possibly secondary to dehydration <PADDY Kolb - Last Filed: 06/04/21 09:44> (9) Malnutrition: Code(s): E46 - Unspecified protein-calorie malnutrition <PADDY Kolb - Last Filed: 06/04/21 09:44> Status: Acute <PADDY Kolb - Last Filed: 06/04/21 09:44> Assessment a
[2021-06-04] MEDS: ESCITALOPRAM OXALATE 5 MG TABLET PO (09:41)
[2021-06-04] MEDS: ENOXAPARIN 40 MG/0.4 ML SYRINGE 30 MG SUB-Q ×2 (09:41→21:17)
[2021-06-04 09:43] VITALS: PULSE 78
[2021-06-04] MEDS: PRAVASTATIN SODIUM 20 MG TABLET PO (09:43)
[2021-06-04] MEDS: TAMSULOSIN HCL 0.4 MG CAPSULE PO (09:43)
[2021-06-04] MEDS: methocarbamoL 750 MG TABLET PO ×2 (09:43→21:18)
[2021-06-04] MEDS: AZITHROMYCIN 250 MG TABLET 500 MG PO (09:43)
[2021-06-04] MEDS: MEGESTROL ACETATE (*CHEMO) 40 MG TABLET PO ×4 (09:43→21:18)
[2021-06-04] MEDS: atenoloL 25 MG TABLET PO (09:43)
[2021-06-04] MEDS: DEXAMETHASONE SOD PHOS INJ 4 MG/ML VIAL 6 MG IV PUSH (09:44)
[2021-06-04] MEDS: MAGNESIUM SULF 4 GM/WATER100ML 4 GM/100 ML BAG IVPB (10:07)
[2021-06-04] MEDS: REMDESIVIR 100 MG/NS 250 ML 100 MG/250 ML BAG 250 MG IVPB (11:00)
[2021-06-04 16:40] VITALS: BP 168/94; PULSE 83; RESP 18; TEMP 36.4; O2SAT 100
[2021-06-04] MEDS: MAGNESIUM OXIDE 400 MG TABLET PO (17:12)
[2021-06-04] MEDS: traZODone HCL 50 MG TABLET PO (21:18)
[2021-06-05] VITALS: BP 150/97; PULSE 89; RESP 18; TEMP 36.8; O2SAT 98
[2021-06-05] MEDS: SODIUM CHLORIDE 0.9% IV 1,000 ML 100 ML IV CONT ×2 (05:23→18:18)
[2021-06-05 05:25] VITALS: O2SAT 96
[2021-06-05] MEDS: methocarbamoL 750 MG TABLET PO ×4 (05:26→23:08)
[2021-06-05] MEDS: HYDROcodone/acetaminophen (*CRX) 7.5-325 MG TABLET 1 TAB PO ×4 (05:26→23:08)
[2021-06-05 05:54] LABS: INR 1.3; Prothrombin Time 13.4 Seconds (9.50-12.10)
[2021-06-05 06:00] LABS: Alanine Aminotransferase 28 U/L (16-63); Estimated Glomerular Filt Rate > 60
[2021-06-05 08:00] VITALS: BP 146/90; PULSE 88; RESP 20; TEMP 36.7; O2SAT 99
[2021-06-05 09:25] LABS: Hematocrit 41.5 % (37.0-46.0); Hemoglobin 13.9 g/dL (12.4-15.3); Mean Corpuscular HGB Conc 33.5 g/dL (32.0-36.0); Mean Corpuscular Hemoglobin 28.9 pg (27.0-31.0); Mean Corpuscular Volume 86.3 fL (78.0-102.0); Mean Platelet Volume 10.6 fl (8.7-11.0); Platelet Count Result 347 K/mm3 (150-420); Red Blood Count 4.81 M/mm3 (4.70-6.10); Red Cell Distribution Width 14.7 % (11.6-14.4); White Blood Count 9.5 K/mm3 (4.8-10.8)
[2021-06-05 09:34] LABS: Albumin Level 2.3 g/dL (3.4-5.0); Alkaline Phosphatase 101 U/L (46-116); Anion Gap 10 mmol/L (8-16); Aspartate Amino Transferase 28 U/L (15-37); Bilirubin,Total 0.3 mg/dL (0.00-1.00); Blood Urea Nitrogen 13 mg/dL (7-18); Calcium 8.3 mg/dL (8.5-10.1); Carbon Dioxide 26 mmol/L (21-32); Chloride 99 mmol/L (98-108); Estimated Glomerular Filt Rate > 60; Glucose 163 mg/dL (70-99); Osmolality Calculated 284 mOsm/kg (285-295); Potassium 3.6 mmol/L (3.5-5.1); Sodium 135 mmol/L (136-145); Total Protein 5.4 g/dL (6.4-8.2)
[2021-06-05 09:38] LABS: Alanine Aminotransferase 28 U/L (16-63)
[2021-06-05 09:39] LABS: Magnesium 1.6 mg/dL (1.8-2.4)
[2021-06-05] MEDS: ENOXAPARIN 40 MG/0.4 ML SYRINGE 30 MG SUB-Q ×2 (10:57→21:03)
[2021-06-05] MEDS: DEXAMETHASONE SOD PHOS INJ 4 MG/ML VIAL 6 MG IV PUSH (10:58)
[2021-06-05] MEDS: PRAVASTATIN SODIUM 20 MG TABLET PO (10:59)
[2021-06-05] MEDS: POTASSIUM CHLORIDE 20 MEQ TABLET 40 MEQ PO (11:00)
[2021-06-05] MEDS: AZITHROMYCIN 250 MG TABLET 500 MG PO (11:00)
[2021-06-05] MEDS: MAGNESIUM OXIDE 400 MG TABLET PO ×2 (11:00→17:06)
[2021-06-05 11:01] VITALS: PULSE 88
[2021-06-05] MEDS: atenoloL 25 MG TABLET PO (11:01)
[2021-06-05] MEDS: TAMSULOSIN HCL 0.4 MG CAPSULE PO (11:02)
[2021-06-05] MEDS: MEGESTROL ACETATE (*CHEMO) 40 MG TABLET PO ×4 (11:02→21:03)
[2021-06-05] MEDS: ESCITALOPRAM OXALATE 5 MG TABLET PO (11:03)
[2021-06-05] MEDS: REMDESIVIR 100 MG/NS 250 ML 100 MG/250 ML BAG 250 MG IVPB (11:39)
--- NOTE | 2021-06-05 14:24 | P.PN_ITS ---
Progress Note: A&P Assessment and Plan (1) COVID-19 determined by clinical diagnostic criteria: Code(s): U07.1 - COVID-19 Status: Acute Assessment and Plan: * Patient with dexamethasone and remdesivir * Will possibly discontinue remdesivir patient is not having any respiratory symptoms * Tested positive for Covid on 06/02/21 (2) Pneumonia: Qualifiers: Laterality: bilateral Lung location: unspecified part of lung Pneumonia type: due to unspecified organism Qualified Code(s): J18.9 - Pneumonia, unspecified organism Code(s): J18.9 - Pneumonia, unspecified organism Status: Acute Assessment and Plan: * X-ray indicates pneumonia possibly Covid pneumonia more than likely viral * Will continue azithromycin cefdinir for now blood cultures pending. If blood cultures are negative will discontinue antibiotics * Continue as needed albuterol and supplementary oxygen (3) Pneumomediastinum: Code(s): J98.2 - Interstitial emphysema Status: Acute Assessment and Plan: * Stable * Pneumomediastinum with subcutaneous gas extending into the neck and left axilla (4) Chronic back pain: Code(s): M54.9 - Dorsalgia, unspecified; G89.29 - Other chronic pain Status: Acute Assessment and Plan: * Continue Tylenol along with tramadol and [place] (5) Generalized muscle weakness: Code(s): M62.81 - Muscle weakness (generalized) Status: Acute Assessment and Plan: * Due to not malnutrition * Will start PT OT when appropriate (6) Hyponatremia: Code(s): E87.1 - Hypo-osmolality and hyponatremia Status: Acute Assessment and Plan: * Sodium 129>133>134>135 * Secondary to malnutrition and dehydration * Continue IV fluid (7) Elevated BUN: Code(s): R79.9 - Abnormal finding of blood chemistry, unspecified Status: Acute Assessment and Plan: * Resolved * Slightly elevated BUN 21>13 * Secondary to dehydration (8) Elevated AST (SGOT): Code(s): R74.01 - Elevation of levels of liver transaminase levels Status: Acute Assessment and Plan: * Resolved * AST66>50>28 * Possibly secondary to dehydration (9) Malnutrition: Code(s): E46 - Unspecified protein-calorie malnutrition Status: Acute Assessment and Plan: * Possibly secondary to abuse, no drug abuse hotline caught on relative * Patient given supplement nutrition * Also given Megace for increased appetite (10) Depressed: Code(s): F32.9 - Major depressive disorder, single episode, unspecified Status: Acute Assessment and Plan: * Patient reports depression Lexapro given (11) Drug abuse and dependence: Code(s): F19.20 - Other psychoactive substance dependence, uncomplicated Status: Acute Assessment and Plan: * Opiate stabilizer protocol in place * Started scheduled Librium * Consult to marriage and family social worker (12) Hypomagnesemia: Code(s): E83.42 - Hypomagnesemia Status: Acute Assessment and Plan: * Secondary to malnutrition * Mag 1.3>1.6 * Supplement given Subjective Date/time seen: 06/05/21 14:24 patient appears to be more stronger than yesterday. He is still not consuming a lot of food. I emphasized the importance of him drinking his protein shake. He has no complaints at this time. The patient denies SOB, CP, palpitation, extremity numbness, lightheadedness, dizziness, constipation, diarrhea, chills, or fever. Review of Systems Review of S
--- NOTE | 2021-06-05 14:24 | WPDPN ---
Progress Note: A&P Assessment and Plan (1) COVID-19 determined by clinical diagnostic criteria: Code(s): U07.1 - COVID-19 Status: Acute Assessment and Plan: Patient with dexamethasone and remdesivir Will possibly discontinue remdesivir patient is not having any respiratory symptoms Tested positive for Covid on 06/02/21 (2) Pneumonia: Qualifiers: Laterality: bilateral Lung location: unspecified part of lung Pneumonia type: due to unspecified organism Qualified Code(s): J18.9 - Pneumonia, unspecified organism Code(s): J18.9 - Pneumonia, unspecified organism Status: Acute Assessment and Plan: X-ray indicates pneumonia possibly Covid pneumonia more than likely viral Will continue azithromycin cefdinir for now blood cultures pending. If blood cultures are negative will discontinue antibiotics Continue as needed albuterol and supplementary oxygen (3) Pneumomediastinum: Code(s): J98.2 - Interstitial emphysema Status: Acute Assessment and Plan: Stable Pneumomediastinum with subcutaneous gas extending into the neck and left axilla (4) Chronic back pain: Code(s): M54.9 - Dorsalgia, unspecified; G89.29 - Other chronic pain Status: Acute Assessment and Plan: Continue Tylenol along with tramadol and [place] (5) Generalized muscle weakness: Code(s): M62.81 - Muscle weakness (generalized) Status: Acute Assessment and Plan: Due to not malnutrition Will start PT OT when appropriate (6) Hyponatremia: Code(s): E87.1 - Hypo-osmolality and hyponatremia Status: Acute Assessment and Plan: Sodium 129>133>134>135 Secondary to malnutrition and dehydration Continue IV fluid (7) Elevated BUN: Code(s): R79.9 - Abnormal finding of blood chemistry, unspecified Status: Acute Assessment and Plan: Resolved Slightly elevated BUN 21>13 Secondary to dehydration (8) Elevated AST (SGOT): Code(s): R74.01 - Elevation of levels of liver transaminase levels Status: Acute Assessment and Plan: Resolved AST66>50>28 Possibly secondary to dehydration (9) Malnutrition: Code(s): E46 - Unspecified protein-calorie malnutrition Status: Acute Assessment and Plan: Possibly secondary to abuse, no drug abuse hotline caught on relative Patient given supplement nutrition Also given Megace for increased appetite (10) Depressed: Code(s): F32.9 - Major depressive disorder, single episode, unspecified Status: Acute Assessment and Plan: Patient reports depression Lexapro given (11) Drug abuse and dependence: Code(s): F19.20 - Other psychoactive substance dependence, uncomplicated Status: Acute Assessment and Plan: Opiate stabilizer protocol in place Started scheduled Librium Consult to social media editor (12) Hypomagnesemia: Code(s): E83.42 - Hypomagnesemia Status: Acute Assessment and Plan: Secondary to malnutrition Mag 1.3>1.6 Supplement given Subjective Date/time seen: 06/05/21 14:24 patient appears to be more stronger than yesterday. He is still not consuming a lot of food. I emphasized the importance of him drinking his protein shake. He has no complaints at this time. The patient denies SOB, CP, palpitation, extremity numbness, lightheadedness, dizziness, constipation, diarrhea, chills, or fever. Review of Systems Review of Systems: A 14 organ system Review of Systems was performed and pertinent positives included in the HPI, otherwise remaining ROS is negative. Exam Narrative: GENERAL: Severely malnutrition, Fatigue extremely underweight elderly, unkept, and in no apparent distress. HEAD: normocephalic, atraumatic. EYES: PERRL. Sclera clear/white. Vision is grossly intact. EARS: External ears normal, auditory canals clear and without drainage, TMs normal without perforation. Hearing gross
[2021-06-05 16:00] VITALS: BP 161/79; PULSE 65; RESP 16; TEMP 36.6; O2SAT 99
--- NOTE | 2021-06-05 19:10 | PC.NURSE ---
Completed bedside shift change report. Patient is resting quietly in his bed. He stated that he is not comfortable, but does not know what would make him comfortable. Patient is resting on his left side. Patient asked for a drink of [place] mist, which was provided to him. Patient stated that he did not need anything else at this time.
[2021-06-06] VITALS: BP 169/79; PULSE 84; RESP 20; TEMP 37.2; O2SAT 94
[2021-06-06 05:17] LABS: Hemoglobin 13.5 g/dL (12.4-15.3); Mean Corpuscular HGB Conc 35.5 g/dL (32.0-36.0); Mean Corpuscular Hemoglobin 30.3 pg (27.0-31.0); Mean Corpuscular Volume 85.4 fL (78.0-102.0); Mean Platelet Volume 9.5 fl (8.7-11.0); Platelet Count Result 348 K/mm3 (150-420); Red Blood Count 4.45 M/mm3 (4.70-6.10); Red Cell Distribution Width 14.4 % (11.6-14.4); White Blood Count 8.7 K/mm3 (4.8-10.8)
[2021-06-06 05:28] LABS: INR 1.2
[2021-06-06 05:34] LABS: Alanine Aminotransferase 41 U/L (16-63); Albumin Level 2.3 g/dL (3.4-5.0); Alkaline Phosphatase 117 U/L (46-116); Anion Gap 8 mmol/L (8-16); Aspartate Amino Transferase 64 U/L (15-37); Bilirubin,Total 0.5 mg/dL (0.00-1.00); Blood Urea Nitrogen 12 mg/dL (7-18); Calcium 8.2 mg/dL (8.5-10.1); Carbon Dioxide 27 mmol/L (21-32); Chloride 96 mmol/L (98-108); Estimated Glomerular Filt Rate > 60; Glucose 124 mg/dL (70-99); Magnesium 1.5 mg/dL (1.8-2.4); Osmolality Calculated 272 mOsm/kg (285-295); Potassium 3.4 mmol/L (3.5-5.1); Sodium 131 mmol/L (136-145); Total Protein 5.3 g/dL (6.4-8.2)
[2021-06-06] MEDS: HYDROcodone/acetaminophen (*CRX) 7.5-325 MG TABLET 1 TAB PO ×2 (05:57→20:29)
[2021-06-06] MEDS: methocarbamoL 750 MG TABLET PO (05:58)
[2021-06-06] MEDS: SODIUM CHLORIDE 0.9% IV 1,000 ML 100 ML IV CONT ×3 (06:09→20:28)
[2021-06-06 08:00] VITALS: BP 133/71; PULSE 71; RESP 18; TEMP 36.6; O2SAT 98
[2021-06-06] MEDS: DEXAMETHASONE SOD PHOS INJ 4 MG/ML VIAL 6 MG IV PUSH (08:32)
[2021-06-06] MEDS: ESCITALOPRAM OXALATE 5 MG TABLET PO (08:33)
[2021-06-06] MEDS: POTASSIUM CHLORIDE 20 MEQ TABLET 40 MEQ PO ×2 (08:33→08:34)
[2021-06-06] MEDS: AZITHROMYCIN 250 MG TABLET 500 MG PO (08:34)
[2021-06-06] MEDS: MEGESTROL ACETATE (*CHEMO) 40 MG TABLET PO ×4 (08:34→20:27)
[2021-06-06] MEDS: TAMSULOSIN HCL 0.4 MG CAPSULE PO (08:34)
[2021-06-06] MEDS: PRAVASTATIN SODIUM 20 MG TABLET PO (08:34)
[2021-06-06] MEDS: MAGNESIUM OXIDE 400 MG TABLET PO ×2 (08:34→16:22)
[2021-06-06 08:35] VITALS: PULSE 71
[2021-06-06] MEDS: atenoloL 50 MG TABLET PO (08:35)
[2021-06-06] MEDS: ENOXAPARIN 40 MG/0.4 ML SYRINGE 30 MG SUB-Q (08:37)
[2021-06-06] MEDS: MAGNESIUM SULF 2 GM/WATER 50ML 2 GM/50 ML BAG IVPB (08:55)
[2021-06-06] MEDS: ENOXAPARIN 30 MG/0.3 ML SYRINGE SUB-Q ×2 (08:56→20:27)
[2021-06-06] MEDS: MORPHINE SULFATE (*CRX) 2 MG/ML INJ 1 MG IV PUSH (10:13)
[2021-06-06] MEDS: REMDESIVIR 100 MG/NS 250 ML 100 MG/250 ML BAG 250 MG IVPB (10:14)
--- NOTE | 2021-06-06 12:55 | P.PN_ITS ---
Progress Note: A&P Assessment and Plan (1) COVID-19 determined by clinical diagnostic criteria: Code(s): U07.1 - COVID-19 Status: Acute Assessment and Plan: * Patient with dexamethasone and remdesivir * Tested positive for Covid on 06/02/21 (2) Pneumonia: Qualifiers: Laterality: bilateral Lung location: unspecified part of lung Pneumonia type: due to unspecified organism Qualified Code(s): J18.9 - Pneumonia, unspecified organism Code(s): J18.9 - Pneumonia, unspecified organism Status: Acute Assessment and Plan: * X-ray indicates pneumonia possibly Covid pneumonia more than likely viral * Will continue azithromycin cefdinir for now blood cultures pending. If blood cultures are negative will discontinue antibiotics * Continue as needed albuterol and supplementary oxygen (3) Pneumomediastinum: Code(s): J98.2 - Interstitial emphysema Status: Acute Assessment and Plan: * Stable * Pneumomediastinum with subcutaneous gas extending into the neck and left axilla (4) Chronic back pain: Code(s): M54.9 - Dorsalgia, unspecified; G89.29 - Other chronic pain Status: Acute Assessment and Plan: * Continue Tylenol along with tramadol and [place] (5) Generalized muscle weakness: Code(s): M62.81 - Muscle weakness (generalized) Status: Acute Assessment and Plan: * Due to not malnutrition * Will start PT OT when appropriate (6) Hyponatremia: Code(s): E87.1 - Hypo-osmolality and hyponatremia Status: Acute Assessment and Plan: * Sodium 129>133>134>135>131 * Secondary to malnutrition and dehydration * Continue IV fluid (7) Elevated BUN: Code(s): R79.9 - Abnormal finding of blood chemistry, unspecified Status: Acute Assessment and Plan: * Resolved * Slightly elevated BUN 21>13>12 * Secondary to dehydration (8) Elevated AST (SGOT): Code(s): R74.01 - Elevation of levels of liver transaminase levels Status: Acute Assessment and Plan: * AST66>50>28>64 * Possibly secondary to dehydration (9) Malnutrition: Code(s): E46 - Unspecified protein-calorie malnutrition Status: Acute Assessment and Plan: * Possibly secondary to abuse, no drug abuse hotline caught on relative * Patient given supplement nutrition * Also given Megace for increased appetite * Protein 5.3 albumin 2.3 (10) Depressed: Code(s): F32.9 - Major depressive disorder, single episode, unspecified Status: Acute Assessment and Plan: * Patient reports depression Lexapro given (11) Drug abuse and dependence: Code(s): F19.20 - Other psychoactive substance dependence, uncomplicated Status: Acute Assessment and Plan: * Opiate stabilizer protocol in place * Started scheduled Librium * Consult to social work specialist (12) Hypomagnesemia: Code(s): E83.42 - Hypomagnesemia Status: Acute Assessment and Plan: * Secondary to malnutrition * Mag 1.3>1.6 * Supplement given Subjective Date/time seen: 06/06/21 12:55 patient is becoming stronger daily. He does complain of the arm pain due to IV infiltration. He also notes that he is having withdrawal symptoms patient currently on Librium. the patient denies SOB, CP, palpitation, extremity numbness, lightheadedness, dizziness, constipation, diarrhea, chills, or fever. Patient will more than likely have to transition to swing bed Review of Systems Review of Systems:
--- NOTE | 2021-06-06 12:55 | WPDPN ---
Progress Note: A&P Assessment and Plan (1) COVID-19 determined by clinical diagnostic criteria: Code(s): U07.1 - COVID-19 Status: Acute Assessment and Plan: Patient with dexamethasone and remdesivir Tested positive for Covid on 06/02/21 (2) Pneumonia: Qualifiers: Laterality: bilateral Lung location: unspecified part of lung Pneumonia type: due to unspecified organism Qualified Code(s): J18.9 - Pneumonia, unspecified organism Code(s): J18.9 - Pneumonia, unspecified organism Status: Acute Assessment and Plan: X-ray indicates pneumonia possibly Covid pneumonia more than likely viral Will continue azithromycin cefdinir for now blood cultures pending. If blood cultures are negative will discontinue antibiotics Continue as needed albuterol and supplementary oxygen (3) Pneumomediastinum: Code(s): J98.2 - Interstitial emphysema Status: Acute Assessment and Plan: Stable Pneumomediastinum with subcutaneous gas extending into the neck and left axilla (4) Chronic back pain: Code(s): M54.9 - Dorsalgia, unspecified; G89.29 - Other chronic pain Status: Acute Assessment and Plan: Continue Tylenol along with tramadol and [place] (5) Generalized muscle weakness: Code(s): M62.81 - Muscle weakness (generalized) Status: Acute Assessment and Plan: Due to not malnutrition Will start PT OT when appropriate (6) Hyponatremia: Code(s): E87.1 - Hypo-osmolality and hyponatremia Status: Acute Assessment and Plan: Sodium 129>133>134>135>131 Secondary to malnutrition and dehydration Continue IV fluid (7) Elevated BUN: Code(s): R79.9 - Abnormal finding of blood chemistry, unspecified Status: Acute Assessment and Plan: Resolved Slightly elevated BUN 21>13>12 Secondary to dehydration (8) Elevated AST (SGOT): Code(s): R74.01 - Elevation of levels of liver transaminase levels Status: Acute Assessment and Plan: AST66>50>28>64 Possibly secondary to dehydration (9) Malnutrition: Code(s): E46 - Unspecified protein-calorie malnutrition Status: Acute Assessment and Plan: Possibly secondary to abuse, no drug abuse hotline caught on relative Patient given supplement nutrition Also given Megace for increased appetite Protein 5.3 albumin 2.3 (10) Depressed: Code(s): F32.9 - Major depressive disorder, single episode, unspecified Status: Acute Assessment and Plan: Patient reports depression Lexapro given (11) Drug abuse and dependence: Code(s): F19.20 - Other psychoactive substance dependence, uncomplicated Status: Acute Assessment and Plan: Opiate stabilizer protocol in place Started scheduled Librium Consult to social insurance specialist (12) Hypomagnesemia: Code(s): E83.42 - Hypomagnesemia Status: Acute Assessment and Plan: Secondary to malnutrition Mag 1.3>1.6 Supplement given Subjective Date/time seen: 06/06/21 12:55 patient is becoming stronger daily. He does complain of the arm pain due to IV infiltration. He also notes that he is having withdrawal symptoms patient currently on Librium. the patient denies SOB, CP, palpitation, extremity numbness, lightheadedness, dizziness, constipation, diarrhea, chills, or fever. Patient will more than likely have to transition to swing bed Review of Systems Review of Systems: A 14 organ system Review of Systems was performed and pertinent positives included in the HPI, otherwise remaining ROS is negative. Exam Narrative: GENERAL: Severely malnutrition, Fatigue extremely underweight elderly, unkept, and in no apparent distress. HEAD: normocephalic, atraumatic. EYES: PERRL. Sclera clear/white. Vision is grossly intact. EARS: External ears normal, auditory canals clear and without drainage, TMs normal without perforation. Hearing grossly intac
[2021-06-06 16:00] VITALS: BP 159/93; PULSE 72; RESP 20; TEMP 36.5; O2SAT 98
[2021-06-06] MEDS: traZODone HCL 50 MG TABLET PO (20:28)
[2021-06-06] MEDS: LOPERAMIDE HCL 2 MG CAPSULE PO (20:29)
[2021-06-07] VITALS: BP 152/87; PULSE 67; RESP 18; TEMP 35.9; O2SAT 94
[2021-06-07 05:38] LABS: Alanine Aminotransferase 56 U/L (16-63); Estimated Glomerular Filt Rate > 60
[2021-06-07 05:40] LABS: INR 1.2; Prothrombin Time 12.8 Seconds (9.50-12.10)
[2021-06-07] MEDS: SODIUM CHLORIDE 0.9% IV 1,000 ML 100 ML IV CONT (05:40)
[2021-06-07] MEDS: AZITHROMYCIN 250 MG TABLET 500 MG PO (07:56)
[2021-06-07] MEDS: ENOXAPARIN 30 MG/0.3 ML SYRINGE SUB-Q ×2 (07:56→20:50)
[2021-06-07] MEDS: MEGESTROL ACETATE (*CHEMO) 40 MG TABLET PO ×4 (07:56→20:51)
[2021-06-07 07:57] VITALS: PULSE 68
[2021-06-07] MEDS: ESCITALOPRAM OXALATE 5 MG TABLET PO (07:57)
[2021-06-07] MEDS: atenoloL 50 MG TABLET PO (07:57)
[2021-06-07] MEDS: POTASSIUM CHLORIDE 20 MEQ TABLET 40 MEQ PO (07:57)
[2021-06-07] MEDS: TAMSULOSIN HCL 0.4 MG CAPSULE PO (07:57)
[2021-06-07] MEDS: methocarbamoL 750 MG TABLET PO (07:57)
[2021-06-07] MEDS: HYDROcodone/acetaminophen (*CRX) 7.5-325 MG TABLET 1 TAB PO (07:58)
[2021-06-07] MEDS: PRAVASTATIN SODIUM 20 MG TABLET PO (07:58)
[2021-06-07] MEDS: DEXAMETHASONE SOD PHOS INJ 4 MG/ML VIAL 6 MG IV PUSH (07:58)
[2021-06-07] MEDS: MAGNESIUM OXIDE 400 MG TABLET PO ×2 (07:58→16:56)
[2021-06-07 08:00] VITALS: BP 148/85; PULSE 76; RESP 18; TEMP 36.6; O2SAT 98
[2021-06-07 08:55] LABS: Anion Gap 10 mmol/L (8-16); Blood Urea Nitrogen 13 mg/dL (7-18); Calcium 8.2 mg/dL (8.5-10.1); Carbon Dioxide 19 mmol/L (21-32); Chloride 93 mmol/L (98-108); Estimated Glomerular Filt Rate > 60; Glucose 111 mg/dL (70-99); Magnesium 1.9 mg/dL (1.8-2.4); Osmolality Calculated 255 mOsm/kg (285-295); Potassium 5.1 mmol/L (3.5-5.1); Sodium 122 mmol/L (136-145)
[2021-06-07] MEDS: REMDESIVIR 100 MG/NS 250 ML 100 MG/250 ML BAG 250 MG IVPB (09:42)
[2021-06-07] MEDS: SODIUM CHLORIDE 3% 500 ML 30 ML IV CONT (09:43)
--- NOTE | 2021-06-07 11:20 | P.PNIM_ITS ---
Progress Note: A&P Assessment and Plan (1) COVID-19 determined by clinical diagnostic criteria: Code(s): U07.1 - COVID-19 <Jeremiah QuickTIMMY banks - Last Filed: 06/07/21 12:16> Status: Acute <Jeremiah MichaudBRONSONC - Last Filed: 06/07/21 12:16> Assessment and Plan: * Patient with dexamethasone and remdesivir * Tested positive for Covid on 06/02/21 06/07/2021 Continue with Remdesivir, Decadron, Rocephin, and Azithromycin, supplemental O2 as needed (not needed at this time) <Jeremiah QuickEDER banks-C - Last Filed: 06/07/21 12:16> (2) Pneumonia: Qualifiers: Laterality: bilateral Lung location: unspecified part of lung Pneumonia type: due to unspecified organism Qualified Code(s): J18.9 - Pneumonia, unspecified organism <Jeremiah CarlosQuynh AbdelrahmanTIMMY banks - Last Filed: 06/07/21 12:16> Code(s): J18.9 - Pneumonia, unspecified organism <Jeremiah QuickBRONSON banksC - Last Filed: 06/07/21 12:16> Status: Acute <Jeremiah MichaudBRONSONC - Last Filed: 06/07/21 12:16> Assessment and Plan: * X-ray indicates pneumonia possibly Covid pneumonia more than likely viral * Will continue azithromycin cefdinir for now blood cultures pending. If blood cultures are negative will discontinue antibiotics * Continue as needed albuterol and supplementary oxygen 06/07/2021 Continue with Ab as noted above <Jeremiah QuickEDER banks-C - Last Filed: 06/07/21 12:16> (3) Pneumomediastinum: Code(s): J98.2 - Interstitial emphysema <Jeremiah CarlosBRONSON HaydenC - Last Filed: 06/07/21 12:16> Status: Acute <Jeremiah CarlosQuynh Michaud APN-C - Last Filed: 06/07/21 12:16> Assessment and Plan: * Stable * Pneumomediastinum with subcutaneous gas extending into the neck and left axilla <Jeremiah Carlos. Vogt, UTILIZATION SPECIALIST-C - Last Filed: 06/07/21 12:16> (4) Chronic back pain: Code(s): M54.9 - Dorsalgia, unspecified; G89.29 - Other chronic pain <Jeremiah QuickEDER banks-C - Last Filed: 06/07/21 12:16> Status: Acute <Jeremiah MichaudEDER-C - Last Filed: 06/07/21 12:16> Assessment and Plan: * Continue Tylenol along with tramadol and [place] <Jeremiah QuickEDER banks-C - Last Filed: 06/07/21 12:16> (5) Generalized muscle weakness: Code(s): M62.81 - Muscle weakness (generalized) <Jeremiah QuickEDER banks-C - Last Filed: 06/07/21 12:16> Status: Acute <Jeremiah QuickEDER banks-C - Last Filed: 06/07/21 12:16> Assessment and Plan: * Due to not malnutrition * Will start PT OT when appropriate 06/07/2021 Started NG tube with tube feedings as Pt is not eating and requires nutrition to build strength and have energy to participate with PT/OT <Jeremiah QuickEDER banks-C - Last Filed: 06/07/21 12:16> (6) Hyponatremia: Code(s): E87.1 - Hypo-osmolality and hyponatremia <Jeremiah QuickEDER banks-C - Last Filed: 06/07/21 12:16> Status: Acute <Jeremiah QuickEDER banks-C - Last Filed: 06/07/21 12:16> Assessment and Plan: * Sodium 129>133>134>135>131 * Secondary to malnutrition and dehydration * Continue IV fluid 06/07/2021 Na 122 this AM, started Hypertonic saline at 30ml/h while monitoring BMP Q6H with goal of not more than 2 point increase over 6 hours. <Jeremiah Cardoso EDER Michaud-C - Last Filed: 06/07/21 12:16> (7) Elevated BUN: Code(s): R79.9 - Abnormal finding of blood chemistry, unspecified <Jeremiah CarlosQuynh Michaud APN-C - Last Filed: 09/15/21 12:16> Status: Acute <Jeremiah Michaud APN-C - Last Filed: 06/07/21 12:16> Assessment and Plan: * Resolved * Slightly elevated BUN 21>13>12
--- NOTE | 2021-06-07 11:20 | PM.IMPN ---
Progress Note: A&P Assessment and Plan (1) COVID-19 determined by clinical diagnostic criteria: Code(s): U07.1 - COVID-19 <Jeremiah QuickTIMMY banks - Last Filed: 06/07/21 12:16> Status: Acute <Jeremiah MichaudBRONSONC - Last Filed: 06/07/21 12:16> Assessment and Plan: Patient with dexamethasone and remdesivir Tested positive for Covid on 06/02/21 06/07/2021 Continue with Remdesivir, Decadron, Rocephin, and Azithromycin, supplemental O2 as needed (not needed at this time) <Jeremiah QuickEDER banks-C - Last Filed: 06/07/21 12:16> (2) Pneumonia: Qualifiers: Laterality: bilateral Lung location: unspecified part of lung Pneumonia type: due to unspecified organism Qualified Code(s): J18.9 - Pneumonia, unspecified organism <Jeremiah CarlosQuynh AbdelrahmanTIMMY banks - Last Filed: 06/07/21 12:16> Code(s): J18.9 - Pneumonia, unspecified organism <Jeremiah QuickBRONSON banksC - Last Filed: 06/07/21 12:16> Status: Acute <Jeremiah QuickTIMMY banks - Last Filed: 06/07/21 12:16> Assessment and Plan: X-ray indicates pneumonia possibly Covid pneumonia more than likely viral Will continue azithromycin cefdinir for now blood cultures pending. If blood cultures are negative will discontinue antibiotics Continue as needed albuterol and supplementary oxygen 06/07/2021 Continue with Ab as noted above <Jeremiah CarlosQuynh AbdelrahmanBRONSON banksC - Last Filed: 06/07/21 12:16> (3) Pneumomediastinum: Code(s): J98.2 - Interstitial emphysema <Jeremiah CarlosQuynh AbdelrahmanTIMMY banks - Last Filed: 06/07/21 12:16> Status: Acute <Jeremiah QuickBRONSON banksC - Last Filed: 06/07/21 12:16> Assessment and Plan: Stable Pneumomediastinum with subcutaneous gas extending into the neck and left axilla <Jeremiah CarlosBRONSON HaydenC - Last Filed: 06/07/21 12:16> (4) Chronic back pain: Code(s): M54.9 - Dorsalgia, unspecified; G89.29 - Other chronic pain <Jeremiah Cardoso EDER Michaud-C - Last Filed: 06/07/21 12:16> Status: Acute <Jeremiah QuickEDER banks-C - Last Filed: 06/07/21 12:16> Assessment and Plan: Continue Tylenol along with tramadol and [place] <Jeremiah Cardoso EDER Michaud-C - Last Filed: 06/07/21 12:16> (5) Generalized muscle weakness: Code(s): M62.81 - Muscle weakness (generalized) <Jeremiah QuickEDER banks-C - Last Filed: 06/07/21 12:16> Status: Acute <Jeremiah QuickEDER banks-C - Last Filed: 06/07/21 12:16> Assessment and Plan: Due to not malnutrition Will start PT OT when appropriate 06/07/2021 Started NG tube with tube feedings as Pt is not eating and requires nutrition to build strength and have energy to participate with PT/OT <Jeremiah CarlosQuynh Michaud APN-C - Last Filed: 06/07/21 12:16> (6) Hyponatremia: Code(s): E87.1 - Hypo-osmolality and hyponatremia <Jeremiah QuickEDER banks-C - Last Filed: 06/07/21 12:16> Status: Acute <Jeremiah CarlosQuynh Michaud APN-C - Last Filed: 06/07/21 12:16> Assessment and Plan: Sodium 129>133>134>135>131 Secondary to malnutrition and dehydration Continue IV fluid 06/07/2021 Na 122 this AM, started Hypertonic saline at 30ml/h while monitoring BMP Q6H with goal of not more than 2 point increase over 6 hours. <Jeremiah CarlosQuynh Michaud APN-C - Last Filed: 06/07/21 12:16> (7) Elevated BUN: Code(s): R79.9 - Abnormal finding of blood chemistry, unspecified <Jeremiah CarlosQuynh Michaud APN-C - Last Filed: 06/07/21 12:16> Status: Acute <Jeremiah CarlosQuynh Michaud APN-C - Last Filed: 06/07/21 12:16> Assessment and Plan: Resolved Slightly elevated BUN 21>13>12 Secondary to dehydration 06/07/2021 WNL today <TIMMY Christopher - Last Filed: 06/07/21 12:16> (8) Elevated AST (SGOT): Code(s): R74.01 - Elevation of levels of liver transaminase levels <TIMMY Christopher - Last Filed: 06/07/21 12:16> Status: Acute <TIMMY Christopher - Last Filed: 06/07/21 12:16> Assessm
[2021-06-07] MEDS: THERAPEUTIC MULTIVITAMINS/MINERALS TAB (*BKC) 1 TABLET PO (12:06)
--- NOTE | 2021-06-07 14:20 | PCDIET ---
Noon tube feeding completed, 150mL of Jev[place] 1.2 infused per gravity via NG tube. Flushed with 30mL water. Patient tolerated well. HOB elevated to 35 degrees
[2021-06-07 15:46] LABS: Anion Gap 9 mmol/L (8-16); Blood Urea Nitrogen 15 mg/dL (7-18); Calcium 8.1 mg/dL (8.5-10.1); Carbon Dioxide 22 mmol/L (21-32); Chloride 92 mmol/L (98-108); Estimated Glomerular Filt Rate > 60; Glucose 229 mg/dL (70-99); Osmolality Calculated 263 mOsm/kg (285-295); Potassium 4.6 mmol/L (3.5-5.1); Sodium 123 mmol/L (136-145)
[2021-06-07 16:00] VITALS: BP 145/85; PULSE 68; RESP 22; TEMP 36.4; O2SAT 98
[2021-06-07] MEDS: SACCHAROMYCES BOULARDII 250 MG CAPSULE PO (16:56)
[2021-06-07] MEDS: traZODone HCL 50 MG TABLET PO (20:50)
[2021-06-07] MEDS: HYDROcodone/acetaminophen (*CRX) 5-325 MG TABLET 1 TAB PO (20:51)
[2021-06-07 21:00] LABS: Anion Gap 10 mmol/L (8-16); Blood Urea Nitrogen 17 mg/dL (7-18); Calcium 8.3 mg/dL (8.5-10.1); Carbon Dioxide 21 mmol/L (21-32); Chloride 94 mmol/L (98-108); Estimated Glomerular Filt Rate > 60; Glucose 189 mg/dL (70-99); Osmolality Calculated 266 mOsm/kg (285-295); Potassium 4.5 mmol/L (3.5-5.1); Sodium 125 mmol/L (136-145)
--- NOTE | 2021-06-07 21:32 | PC.NURSE ---
Dr. Garcia notified that patient's sodium level went up to 125. acknowledged current level and stated to continue NS3% and continue to draw labs Q6H.
[2021-06-08] VITALS: BP 146/96; PULSE 76; RESP 20; TEMP 36.3; O2SAT 100
[2021-06-08 03:01] LABS: Hematocrit 37.2 % (37.0-46.0); Hemoglobin 13.3 g/dL (12.4-15.3); Mean Corpuscular HGB Conc 35.8 g/dL (32.0-36.0); Mean Corpuscular Hemoglobin 29.8 pg (27.0-31.0); Mean Corpuscular Volume 83.2 fL (78.0-102.0); Mean Platelet Volume 9.4 fl (8.7-11.0); Platelet Count Result 288 K/mm3 (150-420); Red Blood Count 4.47 M/mm3 (4.70-6.10); White Blood Count 13.9 K/mm3 (4.8-10.8)
[2021-06-08 03:20] LABS: Anion Gap 6 mmol/L (8-16); Blood Urea Nitrogen 16 mg/dL (7-18); Calcium 8.3 mg/dL (8.5-10.1); Carbon Dioxide 25 mmol/L (21-32); Chloride 95 mmol/L (98-108); Estimated Glomerular Filt Rate > 60; Glucose 107 mg/dL (70-99); Osmolality Calculated 263 mOsm/kg (285-295); Potassium 4.7 mmol/L (3.5-5.1); Sodium 126 mmol/L (136-145)
[2021-06-08] MEDS: SODIUM CHLORIDE 3% 500 ML 30 ML IV CONT (03:27)
[2021-06-08 08:00] VITALS: BP 160/91; PULSE 71; RESP 20; TEMP 36.6; O2SAT 100
[2021-06-08] MEDS: POTASSIUM CHLORIDE 20 MEQ TABLET 40 MEQ PO (08:19)
[2021-06-08 08:20] VITALS: PULSE 71
[2021-06-08] MEDS: atenoloL 50 MG TABLET PO (08:20)
[2021-06-08] MEDS: AZITHROMYCIN 250 MG TABLET 500 MG PO (08:20)
[2021-06-08] MEDS: DEXAMETHASONE SOD PHOS INJ 4 MG/ML VIAL 6 MG IV PUSH (08:21)
[2021-06-08] MEDS: ENOXAPARIN 30 MG/0.3 ML SYRINGE SUB-Q (08:23)
[2021-06-08] MEDS: MAGNESIUM OXIDE 400 MG TABLET PO ×2 (08:23→16:05)
[2021-06-08] MEDS: ESCITALOPRAM OXALATE 5 MG TABLET PO (08:23)
[2021-06-08] MEDS: MEGESTROL ACETATE (*CHEMO) 40 MG TABLET PO ×4 (08:24→21:10)
[2021-06-08] MEDS: PRAVASTATIN SODIUM 20 MG TABLET PO (08:24)
[2021-06-08] MEDS: THERAPEUTIC MULTIVITAMINS/MINERALS TAB (*BKC) 1 TABLET PO (08:24)
[2021-06-08] MEDS: SACCHAROMYCES BOULARDII 250 MG CAPSULE PO ×2 (08:25→16:06)
[2021-06-08] MEDS: TAMSULOSIN HCL 0.4 MG CAPSULE PO (08:25)
[2021-06-08 08:57] LABS: Anion Gap 9 mmol/L (8-16); Blood Urea Nitrogen 15 mg/dL (7-18); Calcium 7.9 mg/dL (8.5-10.1); Carbon Dioxide 20 mmol/L (21-32); Chloride 94 mmol/L (98-108); Estimated Glomerular Filt Rate > 60; Glucose 109 mg/dL (70-99); Osmolality Calculated 257 mOsm/kg (285-295); Sodium 123 mmol/L (136-145)
[2021-06-08 08:59] LABS: Potassium 4.7 mmol/L (3.5-5.1)
[2021-06-08] MEDS: HYDROcodone/acetaminophen (*CRX) 5-325 MG TABLET 1 TAB PO ×2 (09:23→17:48)
[2021-06-08] MEDS: methocarbamoL 750 MG TABLET PO ×2 (09:25→17:49)
--- NOTE | 2021-06-08 12:25 | PM.IMPN ---
Progress Note: A&P Assessment and Plan (1) COVID-19 determined by clinical diagnostic criteria: Code(s): U07.1 - COVID-19 Status: Acute Assessment and Plan: Patient with dexamethasone and remdesivir Tested positive for Covid on 06/02/21 06/07/2021 Continue with Remdesivir, Decadron, Rocephin, and Azithromycin, supplemental O2 as needed (not needed at this time) 06/08/2021 Continue with above, nutrition is a huge concern, NG in place for now, plan is to have G-tube placed tomorrow, lungs very diminished (2) Pneumonia: Qualifiers: Laterality: bilateral Lung location: unspecified part of lung Pneumonia type: due to unspecified organism Qualified Code(s): J18.9 - Pneumonia, unspecified organism Code(s): J18.9 - Pneumonia, unspecified organism Status: Acute Assessment and Plan: X-ray indicates pneumonia possibly Covid pneumonia more than likely viral Will continue azithromycin cefdinir for now blood cultures pending. If blood cultures are negative will discontinue antibiotics Continue as needed albuterol and supplementary oxygen 06/07/2021 Continue with Ab as noted above 06/08/2021 Continue Ab of Rocephin and Azithromycin, Pt remains on RA, WBC 13.9 this AM (3) Pneumomediastinum: Code(s): J98.2 - Interstitial emphysema Status: Acute Assessment and Plan: Stable Pneumomediastinum with subcutaneous gas extending into the neck and left axilla 06/08/2021 CT from from 06/03/2021 indicating stable pneumomediastinum (4) Chronic back pain: Code(s): M54.9 - Dorsalgia, unspecified; G89.29 - Other chronic pain Status: Acute Assessment and Plan: Continue Tylenol along with tramadol and [place] (5) Generalized muscle weakness: Code(s): M62.81 - Muscle weakness (generalized) Status: Acute Assessment and Plan: Due to not malnutrition Will start PT OT when appropriate 06/07/2021 Started NG tube with tube feedings as Pt is not eating and requires nutrition to build strength and have energy to participate with PT/OT 06/08/2021 Goal is to increase nutritional intake, increase strength, then have PT/OT evaluate and hopefully will be able to help Pt to participate to increase strength more. Likely outcome is placement in LTAC, SNF (6) Hyponatremia: Code(s): E87.1 - Hypo-osmolality and hyponatremia Status: Acute Assessment and Plan: Sodium 129>133>134>135>131 Secondary to malnutrition and dehydration Continue IV fluid 06/07/2021 Na 122 this AM, started Hypertonic saline at 30ml/h while monitoring BMP Q6H with goal of not more than 2 point increase over 6 hours. 06/08/2021 Na did increase to 126 then decreased unexpectedly to 123, Hypertonic Saline drip rate increased to 35ml/h, will continue to monitor BMP. (7) Elevated BUN: Code(s): R79.9 - Abnormal finding of blood chemistry, unspecified Status: Acute Assessment and Plan: Resolved Slightly elevated BUN 21>13>12 Secondary to dehydration 06/07/2021 WNL today 06/08/2021 BUN has been stable since 06/03/2021 (8) Elevated AST (SGOT): Code(s): R74.01 - Elevation of levels of liver transaminase levels Status: Acute Assessment and Plan: AST66>50>28>64 Possibly secondary to dehydration 06/08/2021 will obtain liver enzymes in AM (9) Malnutrition: Code(s): E46 - Unspecified protein-calorie malnutrition Status: Acute Assessment and Plan: Possibly secondary to abuse, no drug abuse hotline caught on relative Patient given supplement nutrition Also given Megace for increased appetite Protein 5.3 albumin 2.3 06/07/2021 Started NG tube feeding with Jevity 1.2 ashley TID at meal times 06/08/2021 Malnutrition is a huge concern, Pt does refuse feedings unless he is strongly encouraged, Spoke with Dr. Rand, GI Surgeon today regarding G-tube placement, Pt will be sent to [facility] tomorrow for this procedure and then returned same day back to [facility]
--- NOTE | 2021-06-08 14:34 | PC.NURSE ---
Patient refused to have feeding tube placed and refuses to sign consent. Patient did agree to allow POA/Daughter Ameena to make that decision and to consent to the procedure.
[2021-06-08 14:53] LABS: Anion Gap 7 mmol/L (8-16); Blood Urea Nitrogen 17 mg/dL (7-18); Calcium 7.6 mg/dL (8.5-10.1); Carbon Dioxide 24 mmol/L (21-32); Chloride 95 mmol/L (98-108); Estimated Glomerular Filt Rate > 60; Glucose 147 mg/dL (70-99); Osmolality Calculated 266 mOsm/kg (285-295); Potassium 4.4 mmol/L (3.5-5.1); Sodium 126 mmol/L (136-145)
[2021-06-08 16:00] VITALS: BP 131/78; PULSE 74; RESP 20; TEMP 36.3; O2SAT 100
[2021-06-08] MEDS: SODIUM CHLORIDE 3% 500 ML 35 ML IV CONT (18:03)
--- NOTE | 2021-06-08 19:06 | PC.NURSE ---
Completed change of shift report. Patient still has NG tube, but was able to eat 50% of dinner tonight, including grilled chicken salad sandwich. Will be transferred to [facility] tomorrow with pick-up at [address] surgeon to [address] feeding tube at 1015. Patient refused consent, but later indicated he didn't understand what they were asking for, and wanted his POA (his daughter) to make the decision. Consent was signed for placement of the tube. Patient is NPO after midnight, and Lovenox is on hold. Patient is currently resting comfortably in bed, with no signs of pain or discomfort.
[2021-06-08 20:41] LABS: Anion Gap 9 mmol/L (8-16); Blood Urea Nitrogen 17 mg/dL (7-18); Calcium 7.6 mg/dL (8.5-10.1); Carbon Dioxide 20 mmol/L (21-32); Chloride 95 mmol/L (98-108); Estimated Glomerular Filt Rate > 60; Glucose 136 mg/dL (70-99); Osmolality Calculated 261 mOsm/kg (285-295); Potassium 4.4 mmol/L (3.5-5.1); Sodium 124 mmol/L (136-145)
[2021-06-08] MEDS: traZODone HCL 50 MG TABLET PO (21:10)
[2021-06-09] VITALS: BP 136/79; PULSE 68; RESP 18; TEMP 36.6; O2SAT 100
[2021-06-09] MEDS: methocarbamoL 750 MG TABLET PO ×2 (00:20→20:40)
[2021-06-09] MEDS: HYDROcodone/acetaminophen (*CRX) 5-325 MG TABLET 1 TAB PO ×4 (00:20→22:45)
[2021-06-09 02:59] LABS: Hematocrit 35.5 % (37.0-46.0); Hemoglobin 12.4 g/dL (12.4-15.3); Mean Corpuscular HGB Conc 34.9 g/dL (32.0-36.0); Mean Corpuscular Hemoglobin 29.9 pg (27.0-31.0); Mean Corpuscular Volume 85.5 fL (78.0-102.0); Mean Platelet Volume 9.7 fl (8.7-11.0); Platelet Count Result 302 K/mm3 (150-420); Red Blood Count 4.15 M/mm3 (4.70-6.10); Red Cell Distribution Width 14.4 % (11.6-14.4); White Blood Count 15.2 K/mm3 (4.8-10.8)
[2021-06-09 03:11] LABS: Alanine Aminotransferase 44 U/L (16-63); Anion Gap 8 mmol/L (8-16); Blood Urea Nitrogen 15 mg/dL (7-18); Calcium 7.8 mg/dL (8.5-10.1); Carbon Dioxide 24 mmol/L (21-32); Chloride 95 mmol/L (98-108); Estimated Glomerular Filt Rate > 60; Glucose 110 mg/dL (70-99); Osmolality Calculated 265 mOsm/kg (285-295); Potassium 4.6 mmol/L (3.5-5.1); Sodium 127 mmol/L (136-145)
[2021-06-09 03:12] LABS: INR 1.2; Prothrombin Time 12.8 Seconds (9.50-12.10)
--- NOTE | 2021-06-09 06:48 | PC.NURSE ---
Patient rounding completed. Patient slept well last night, with turning from side to side every 2 hours. He was unhappy about not being able to drink his [place] Mist after midnight. Patient will be having a G tube placed at [facility] this morning. Hoda, the charge nurse at [facility], called for report, and left her phone number in case the morning shift needs to talk to her.
[2021-06-09 07:50] VITALS: BP 150/70; PULSE 76; RESP 20; TEMP 36.4; O2SAT 100
--- NOTE | 2021-06-09 07:50 | PC.NURSE ---
Patient noted to have NG tube in hand. Pulled NG tube out his self. E MERCHANT Kayode richards.
--- NOTE | 2021-06-09 07:51 | PCOTNOTE ---
OT attempted to see patient for treatment this AM however patient refuses. MS
[2021-06-09 08:10] VITALS: O2SAT 100
[2021-06-09 09:02] LABS: Anion Gap 6 mmol/L (8-16); Blood Urea Nitrogen 15 mg/dL (7-18); Calcium 7.9 mg/dL (8.5-10.1); Carbon Dioxide 25 mmol/L (21-32); Chloride 96 mmol/L (98-108); Estimated Glomerular Filt Rate > 60; Glucose 94 mg/dL (70-99); Osmolality Calculated 264 mOsm/kg (285-295); Potassium 4.3 mmol/L (3.5-5.1); Sodium 127 mmol/L (136-145)
--- NOTE | 2021-06-09 09:25 | PC.NURSE ---
Patient refusing to go have G-tube placed. Kayode CLARKE spoke with patients daughter. Daughter spoke with patient. Patient continued to refuse to have G-tube placed. Hoda at [facility] notified of patient refusal.
[2021-06-09] MEDS: SODIUM CHLORIDE 3% 500 ML 35 ML IV CONT ×2 (09:46→22:46)
[2021-06-09] MEDS: ESCITALOPRAM OXALATE 5 MG TABLET PO (09:48)
[2021-06-09] MEDS: DEXAMETHASONE SOD PHOS INJ 4 MG/ML VIAL 6 MG IV PUSH (09:48)
[2021-06-09] MEDS: MAGNESIUM OXIDE 400 MG TABLET PO ×2 (09:48→17:07)
[2021-06-09] MEDS: POTASSIUM CHLORIDE 20 MEQ TABLET 40 MEQ PO (09:48)
[2021-06-09] MEDS: MEGESTROL ACETATE (*CHEMO) 40 MG TABLET PO ×4 (09:48→20:40)
[2021-06-09 09:49] VITALS: PULSE 76
[2021-06-09] MEDS: atenoloL 50 MG TABLET PO (09:49)
[2021-06-09] MEDS: THERAPEUTIC MULTIVITAMINS/MINERALS TAB (*BKC) 1 TABLET PO (09:49)
[2021-06-09] MEDS: AZITHROMYCIN 250 MG TABLET 500 MG PO (09:49)
[2021-06-09] MEDS: TAMSULOSIN HCL 0.4 MG CAPSULE PO (09:49)
[2021-06-09] MEDS: SACCHAROMYCES BOULARDII 250 MG CAPSULE PO ×2 (09:50→17:08)
[2021-06-09] MEDS: PRAVASTATIN SODIUM 20 MG TABLET PO (09:50)
--- NOTE | 2021-06-09 11:14 | PCOTNOTE ---
Patient is discharged from skilled OT services at this time secondary to patient refusing to participate in therapy. Nursing is aware. MS
--- NOTE | 2021-06-09 12:38 | PM.IMPN ---
Progress Note: A&P Assessment and Plan (1) COVID-19 determined by clinical diagnostic criteria: Code(s): U07.1 - COVID-19 <TIMMY Christopher - Last Filed: 06/09/21 13:24> Status: Acute <Jeremiah BreannaTIMMY Hayden - Last Filed: 06/09/21 13:24> Assessment and Plan: Patient with dexamethasone and remdesivir Tested positive for Covid on 06/02/21 06/07/2021 Continue with Remdesivir, Decadron, Rocephin, and Azithromycin, supplemental O2 as needed (not needed at this time) 06/08/2021 Continue with above, nutrition is a huge concern, NG in place for now, plan is to have G-tube placed tomorrow, lungs very diminished 06/09/2021 Continue with current regimen, Pt refused G-tube placement this AM, lungs very diminished <TIMMY Christopher - Last Filed: 06/09/21 13:24> (2) Pneumonia: Qualifiers: Laterality: bilateral Lung location: unspecified part of lung Pneumonia type: due to unspecified organism Qualified Code(s): J18.9 - Pneumonia, unspecified organism <TIMMY Christopher - Last Filed: 06/09/21 13:24> Code(s): J18.9 - Pneumonia, unspecified organism <TIMMY Christopher - Last Filed: 06/09/21 13:24> Status: Acute <TIMMY Christopher - Last Filed: 06/09/21 13:24> Assessment and Plan: X-ray indicates pneumonia possibly Covid pneumonia more than likely viral Will continue azithromycin cefdinir for now blood cultures pending. If blood cultures are negative will discontinue antibiotics Continue as needed albuterol and supplementary oxygen 06/07/2021 Continue with Ab as noted above 06/08/2021 Continue Ab of Rocephin and Azithromycin, Pt remains on RA, WBC 13.9 this AM 06/09/2021 Continue with current Ab, room air, WBC 15.2 on Decadron <TIMMY Christopher - Last Filed: 06/09/21 13:24> (3) Pneumomediastinum: Code(s): J98.2 - Interstitial emphysema <TIMMY Christopher - Last Filed: 06/09/21 13:24> Status: Acute <Jeremiah CarlosTIMMY Hayden - Last Filed: 06/09/21 13:24> Assessment and Plan: Stable Pneumomediastinum with subcutaneous gas extending into the neck and left axilla 06/08/2021 CT from from 06/03/2021 indicating stable pneumomediastinum ... <TIMMY Christopher - Last Filed: 06/09/21 13:24> (4) Chronic back pain: Code(s): M54.9 - Dorsalgia, unspecified; G89.29 - Other chronic pain <TIMMY Christopher - Last Filed: 06/09/21 13:24> Status: Acute <TIMMY Christopher - Last Filed: 06/09/21 13:24> Assessment and Plan: Continue Tylenol along with tramadol and [place] <BRONSON ChristopherC - Last Filed: 06/09/21 13:24> (5) Generalized muscle weakness: Code(s): M62.81 - Muscle weakness (generalized) <TIMMY Christopher - Last Filed: 06/09/21 13:24> Status: Acute <TIMMY Christopher - Last Filed: 06/09/21 13:24> Assessment and Plan: Due to not malnutrition Will start PT OT when appropriate 06/07/2021 Started NG tube with tube feedings as Pt is not eating and requires nutrition to build strength and have energy to participate with PT/OT 06/08/2021 Goal is to increase nutritional intake, increase strength, then have PT/OT evaluate and hopefully will be able to help Pt to participate to increase strength more. Likely outcome is placement in LTAC, SNF 06/09/2021 Pt has refused PT/OT today and they have ended seeing the Pt due to non-participation, Pt does not want most things done other than COVID and electrolyte treatment, he has wanted and then not wanted Hospice, Case management working of options as noted in Subjective above <TIMMY Christopher - Last Filed: 06/09/21 13:24> (6) Hyponatremia: Code(s): E87.1 - Hypo-osmolality and hyponatremia <TIMMY Christopher - Last Filed: 06/09/21 13:24> Status: Acute <TIMMY Christopher - Last Filed: 06/09/21 13:24> Assessment and Plan:
--- NOTE | 2021-06-09 15:00 | PC.NURSE ---
Kavita from hospice here to evaluate patient for hospice.
--- NOTE | 2021-06-09 15:15 | PCPTNOTE ---
06/09/21 - patient refusing therapy services this date. patient refusing feeding tube placement this date. patient reports to nursing he wants to go on hospice. patient will be DC'd from skilled PT services this date due to poor participation, and poor rehab ability. JAGUAR
[2021-06-09 16:00] VITALS: BP 137/80; PULSE 70; RESP 18; TEMP 36.3; O2SAT 100
[2021-06-09 19:50] VITALS: BP 142/70; PULSE 77; RESP 20; TEMP 36.5; O2SAT 99
[2021-06-09] MEDS: traZODone HCL 50 MG TABLET PO (20:39)
[2021-06-09] MEDS: chlordiazePOXIDE (*CRX) 10 MG CAPSULE PO (20:40)
[2021-06-10] MEDS: HYDROcodone/acetaminophen (*CRX) 5-325 MG TABLET 1 TAB PO ×3 (04:47→16:59)
[2021-06-10] MEDS: methocarbamoL 750 MG TABLET PO ×2 (04:47→20:50)
[2021-06-10 05:29] LABS: Hematocrit 34.9 % (37.0-46.0); Hemoglobin 12.2 g/dL (12.4-15.3); Mean Corpuscular Hemoglobin 30.4 pg (27.0-31.0); Platelet Count Result 337 K/mm3 (150-420); Red Blood Count 4.01 M/mm3 (4.70-6.10); Red Cell Distribution Width 14.6 % (11.6-14.4); White Blood Count 12.8 K/mm3 (4.8-10.8)
[2021-06-10 05:30] VITALS: BP 161/88; PULSE 76; RESP 18; TEMP 36.1
[2021-06-10 05:41] LABS: INR 1.2; Prothrombin Time 12.3 Seconds (9.50-12.10)
[2021-06-10 05:46] LABS: Anion Gap 7 mmol/L (8-16); Blood Urea Nitrogen 13 mg/dL (7-18); Carbon Dioxide 22 mmol/L (21-32); Chloride 98 mmol/L (98-108); Estimated Glomerular Filt Rate > 60; Glucose 113 mg/dL (70-99); Osmolality Calculated 265 mOsm/kg (285-295); Potassium 4.3 mmol/L (3.5-5.1); Sodium 127 mmol/L (136-145)
[2021-06-10 05:47] LABS: Alanine Aminotransferase 52 U/L (16-63)
[2021-06-10 07:55] VITALS: BP 151/88; PULSE 70; RESP 18; TEMP 36.3; O2SAT 99
[2021-06-10 08:00] VITALS: O2SAT 99
--- NOTE | 2021-06-10 08:36 | PM.IMPN ---
Progress Note: A&P Assessment and Plan (1) COVID-19 determined by clinical diagnostic criteria: Code(s): U07.1 - COVID-19 Status: Acute Assessment and Plan: Patient with dexamethasone and remdesivir Tested positive for Covid on 06/02/21 06/07/2021 Continue with Remdesivir, Decadron, Rocephin, and Azithromycin, supplemental O2 as needed (not needed at this time) 06/08/2021 Continue with above, nutrition is a huge concern, NG in place for now, plan is to have G-tube placed tomorrow, lungs very diminished 06/09/2021 Continue with current regimen, Pt refused G-tube placement this AM, lungs very diminished 06/10/2021 Pt looks good this AM, sitting up in bed, talking clearly, eating well, slight improvement to lung sounds, WBC v12.8 (2) Pneumonia: Qualifiers: Laterality: bilateral Lung location: unspecified part of lung Pneumonia type: due to unspecified organism Qualified Code(s): J18.9 - Pneumonia, unspecified organism Code(s): J18.9 - Pneumonia, unspecified organism Status: Acute Assessment and Plan: X-ray indicates pneumonia possibly Covid pneumonia more than likely viral Will continue azithromycin cefdinir for now blood cultures pending. If blood cultures are negative will discontinue antibiotics Continue as needed albuterol and supplementary oxygen 06/07/2021 Continue with Ab as noted above 06/08/2021 Continue Ab of Rocephin and Azithromycin, Pt remains on RA, WBC 13.9 this AM 06/09/2021 Continue with current Ab, room air, WBC 15.2 on Decadron 06/10/2021 minimal changes as noted above (3) Pneumomediastinum: Code(s): J98.2 - Interstitial emphysema Status: Acute Assessment and Plan: Stable Pneumomediastinum with subcutaneous gas extending into the neck and left axilla 06/08/2021 CT from from 06/03/2021 indicating stable pneumomediastinum ... (4) Chronic back pain: Code(s): M54.9 - Dorsalgia, unspecified; G89.29 - Other chronic pain Status: Acute Assessment and Plan: Continue Tylenol along with tramadol and [place] (5) Generalized muscle weakness: Code(s): M62.81 - Muscle weakness (generalized) Status: Acute Assessment and Plan: Due to not malnutrition Will start PT OT when appropriate 06/07/2021 Started NG tube with tube feedings as Pt is not eating and requires nutrition to build strength and have energy to participate with PT/OT 06/08/2021 Goal is to increase nutritional intake, increase strength, then have PT/OT evaluate and hopefully will be able to help Pt to participate to increase strength more. Likely outcome is placement in LTAC, SNF 06/09/2021 Pt has refused PT/OT today and they have ended seeing the Pt due to non-participation, Pt does not want most things done other than COVID and electrolyte treatment, he has wanted and then not wanted Hospice, Case management working of options as noted in Subjective above 06/10/2021 Anticipate increased strength now that Pt is eating much better now. (6) Hyponatremia: Code(s): E87.1 - Hypo-osmolality and hyponatremia Status: Acute Assessment and Plan: Sodium 129>133>134>135>131 Secondary to malnutrition and dehydration Continue IV fluid 06/07/2021 Na 122 this AM, started Hypertonic saline at 30ml/h while monitoring BMP Q6H with goal of not more than 2 point increase over 6 hours. 06/08/2021 Na did increase to 126 then decreased unexpectedly to 123, Hypertonic Saline drip rate increased to 35ml/h, will continue to monitor BMP. 06/09/2021 Na currently at 127, IV was lost this AM at some point and replaced, continue to monitor, Na will be difficult to maintain given the Pt will not eat or just does not eat much (1-4 bites at best) 06/10/2021 Added Sodium tabs as Pts sodium level is constant at 127 with hypertonic saline at 35ml/h (7) Elevated BUN: Code(s): R79.9 - Abnormal finding of blood chemistry, unspecified Status: Acute Assessment and Plan: Resolved [place]
[2021-06-10 09:30] VITALS: BMI 12.6
[2021-06-10] MEDS: AZITHROMYCIN 250 MG TABLET 500 MG PO (09:54)
[2021-06-10] MEDS: DEXAMETHASONE SOD PHOS INJ 4 MG/ML VIAL 6 MG IV PUSH (09:54)
[2021-06-10] MEDS: PRAVASTATIN SODIUM 20 MG TABLET PO (09:54)
[2021-06-10] MEDS: SODIUM CHLORIDE 1 GM TABLET PO ×2 (09:54→16:59)
[2021-06-10] MEDS: POTASSIUM CHLORIDE 20 MEQ TABLET 40 MEQ PO (09:54)
[2021-06-10] MEDS: MAGNESIUM OXIDE 400 MG TABLET PO ×2 (09:54→16:59)
[2021-06-10] MEDS: THERAPEUTIC MULTIVITAMINS/MINERALS TAB (*BKC) 1 TABLET PO (09:54)
[2021-06-10] MEDS: ESCITALOPRAM OXALATE 5 MG TABLET PO (09:54)
[2021-06-10] MEDS: TAMSULOSIN HCL 0.4 MG CAPSULE PO (09:54)
[2021-06-10] MEDS: MEGESTROL ACETATE (*CHEMO) 40 MG TABLET PO ×4 (09:54→20:49)
[2021-06-10 09:55] VITALS: PULSE 70
[2021-06-10] MEDS: atenoloL 50 MG TABLET PO (09:55)
[2021-06-10] MEDS: SACCHAROMYCES BOULARDII 250 MG CAPSULE PO ×2 (09:55→16:59)
[2021-06-10 16:15] VITALS: BP 151/80; PULSE 75; RESP 18; TEMP 36.4; O2SAT 99
[2021-06-10] MEDS: SODIUM CHLORIDE 3% 500 ML 35 ML IV CONT (16:25)
[2021-06-10] MEDS: traZODone HCL 50 MG TABLET PO (20:49)
[2021-06-10] MEDS: ENOXAPARIN 30 MG/0.3 ML SYRINGE SUB-Q (20:49)
[2021-06-10 23:05] VITALS: BP 172/95; PULSE 76; RESP 20; TEMP 36.8; O2SAT 100
--- NOTE | 2021-06-11 00:18 | PC.NURSE ---
At beginning of shift patient request [place] mist and chocolate cake. normal saline 3% infusing well through right arm iv, romero draining adequate amounts of urine, romero care provided, patient repositioned and turned, patient request to watch channel 5. patient states he would like to sit up to chair tomorrow. patient is resting comfortably at this time. no respiratory distress, on room air.
[2021-06-11] MEDS: HYDROcodone/acetaminophen (*CRX) 5-325 MG TABLET 1 TAB PO ×3 (01:07→21:04)
[2021-06-11] MEDS: chlordiazePOXIDE (*CRX) 10 MG CAPSULE PO (01:26)
[2021-06-11] MEDS: methocarbamoL 750 MG TABLET PO ×2 (04:42→21:05)
[2021-06-11 05:55] LABS: Hematocrit 32.6 % (37.0-46.0); Hemoglobin 11.4 g/dL (12.4-15.3); Mean Corpuscular Hemoglobin 29.8 pg (27.0-31.0); Mean Corpuscular Volume 85.1 fL (78.0-102.0); Mean Platelet Volume 9.8 fl (8.7-11.0); Platelet Count Result 359 K/mm3 (150-420); Red Blood Count 3.83 M/mm3 (4.70-6.10); Red Cell Distribution Width 14.4 % (11.6-14.4); White Blood Count 12.4 K/mm3 (4.8-10.8)
[2021-06-11 06:10] LABS: INR 1.1
[2021-06-11 06:28] LABS: Anion Gap 9 mmol/L (8-16); Blood Urea Nitrogen 10 mg/dL (7-18); Calcium 7.5 mg/dL (8.5-10.1); Carbon Dioxide 22 mmol/L (21-32); Chloride 98 mmol/L (98-108); Estimated CRCL calculation 70 ml/min; Estimated Glomerular Filt Rate > 60; Glucose 133 mg/dL (70-99); Osmolality Calculated 269 mOsm/kg (285-295); Potassium 3.7 mmol/L (3.5-5.1); Sodium 129 mmol/L (136-145)
[2021-06-11 06:31] LABS: Alanine Aminotransferase 79 U/L (16-63)
[2021-06-11 08:00] VITALS: BP 155/75; PULSE 71; RESP 20; TEMP 36.4; O2SAT 100
--- NOTE | 2021-06-11 08:25 | P.PNIM_ITS ---
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), no fever or chills, continue Decadron, Rocephin, and Azithromycin, Cr 0.51, BUN 10, ALT 79 <Jeremiah QuickEDER banks-C - Last Filed: 06/11/21 15:21> (2) Pneumonia: Qualifiers: Laterality: bilateral Lung location: unspecified part of lung Pneumonia type: due to unspecified organism Qualified Code(s): J18.9 - Pneumonia, unspecified organism <Jeremiah Cardoso BRONSON MichaudC - Last Filed: 06/11/21 15:21> Code(s): J18.9 - Pneumonia, unspecified organism <Jeremiah QuickEDER banks-C - Last Filed: 06/11/21 15:21> Status: Acute <Jeremiah QuickBRONSON banksC - Last Filed: 06/11/21 15:21> Assessment and Plan: 06/11/2021 Continue Azithromycin and Rocephin, WBC 12.4, not requiring supplemental O2 <Jeremiah CarlosuQynh Michaud APN-C - Last Filed: 06/11/21 15:21> (3) Pneumomediastinum: Code(s): J98.2 - Interstitial emphysema <Jeremiah CarlosQuynh Michaud APN-C - Last Filed: 06/11/21 15:21> Status: Acute <Jeremiah Cardoso BRONSON MichaudC - Last Filed: 06/11/21 15:21> Assessment and Plan: * Stable * Pneumomediastinum with subcutaneous gas extending into the neck and left axilla 06/08/2021 CT from from 06/03/2021 indicating stable pneumomediastinum ... <Jeremiah CarlosQuynh Michaud APN-C - Last Filed: 06/11/21 15:21> (4) Chronic back pain: Code(s): M54.9 - Dorsalgia, unspecified; G89.29 - Other chronic pain <Jeremiah MichaudEDER-C - Last Filed: 06/11/21 15:21> Status: Acute <Jeremiah MichaudEDER-C - Last Filed: 06/11/21 15:21> Assessment and Plan: * Continue Tylenol along with tramadol and [place] <Jeremiah MichaudEDER-C - Last Filed: 06/11/21 15:21> (5) Generalized muscle weakness: Code(s): M62.81 - Muscle weakness (generalized) <Jeremiah MichaudEDER-C - Last Filed: 06/11/21 15:21> Status: Acute <Jeremiah MichaudEDER-C - Last Filed: 06/11/21 15:21> Assessment and Plan: 06/11/2021 Pt is feeding himself now and appears more alert with clear speech <Jeremiah MichaudEDER-C - Last Filed: 06/11/21 15:21> (6) Hyponatremia: Code(s): E87.1 - Hypo-osmolality and hyponatremia <Jeremiah MichaudEDER-C - Last Filed: 06/11/21 15:21> Status: Acute <Jeremiah MichaudEDER-C - Last Filed: 06/11/21 15:21> Assessment and Plan: 06/11/2021 Na 129 this AM, Sodium tabs, Hypertonic saline, regular diet, continue to monitor sodium level, anticipate DCing hypertonic saline now that Pt is eating and taking sodium tabs. <Jeremiah MichaudGEOVANNIN-C - Last Filed: 06/11/21 15:21> (7) Elevated BUN: Code(s): R79.9 - Abnormal finding of blood chemistry, unspecified <Jeremiah MichaudGEOVANNIN-C - Last Filed: 06/11/21 15:21> Status: Acute <Jeremiah MichaudEDER-C - Last Filed: 06/11/21 15:21> Assessment and Plan: 06/11/2021 Resolved <TIMMY Christopher - Last Filed: 06/11/21 15:21> (8) Elevated AST (SGOT): Code(s): R74.01 - Elevation of levels of liver transaminase levels <TIMMY Christopher - Last Filed: 06/11/21 15:21> Status: Acute <TIMMY Christopher - Last Filed: 06/11/21 15:21> Assessment and Plan: 06/11/2021 AST
--- NOTE | 2021-06-11 08:25 | PM.IMPN ---
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), no fever or chills, continue Decadron, Rocephin, and Azithromycin, Cr 0.51, BUN 10, ALT 79 <Jeremiah Cardoso EDER Michaud-C - Last Filed: 06/11/21 15:21> (2) Pneumonia: Qualifiers: Laterality: bilateral Lung location: unspecified part of lung Pneumonia type: due to unspecified organism Qualified Code(s): J18.9 - Pneumonia, unspecified organism <Jeremiah CarlosTIMMY Hayden - Last Filed: 06/11/21 15:21> Code(s): J18.9 - Pneumonia, unspecified organism <Jeremiah Cardoso EDER Michaud-C - Last Filed: 06/11/21 15:21> Status: Acute <Jeremiah Cardoso BRONSON MichaudC - Last Filed: 06/11/21 15:21> Assessment and Plan: 06/11/2021 Continue Azithromycin and Rocephin, WBC 12.4, not requiring supplemental O2 <Jeremiah CarlosBRONSON HaydenC - Last Filed: 06/11/21 15:21> (3) Pneumomediastinum: Code(s): J98.2 - Interstitial emphysema <Jeremiah CarlosQuynh Michaud APN-C - Last Filed: 06/11/21 15:21> Status: Acute <Jeremiah CarlosBRONSON HaydenC - Last Filed: 06/11/21 15:21> Assessment and Plan: Stable Pneumomediastinum with subcutaneous gas extending into the neck and left axilla 06/08/2021 CT from from 06/03/2021 indicating stable pneumomediastinum ... <Jeremiah Carlos. Vogt, SENSOR SPECIALIST-C - Last Filed: 06/11/21 15:21> (4) Chronic back pain: Code(s): M54.9 - Dorsalgia, unspecified; G89.29 - Other chronic pain <Jeremiah MichaudEDER-C - Last Filed: 06/11/21 15:21> Status: Acute <Jeremiah MichaudEDER-C - Last Filed: 06/11/21 15:21> Assessment and Plan: Continue Tylenol along with tramadol and [place] <Jeremiah MichaudEDER-C - Last Filed: 06/11/21 15:21> (5) Generalized muscle weakness: Code(s): M62.81 - Muscle weakness (generalized) <Jeremiah MichaudEDER-C - Last Filed: 06/11/21 15:21> Status: Acute <Jeremiah MichaudEDER-C - Last Filed: 06/11/21 15:21> Assessment and Plan: 06/11/2021 Pt is feeding himself now and appears more alert with clear speech <Jeremiah MichaudEDER-C - Last Filed: 06/11/21 15:21> (6) Hyponatremia: Code(s): E87.1 - Hypo-osmolality and hyponatremia <Jeremiah MichaudEDER-C - Last Filed: 06/11/21 15:21> Status: Acute <Jeremiah MichaudEDER-C - Last Filed: 06/11/21 15:21> Assessment and Plan: 06/11/2021 Na 129 this AM, Sodium tabs, Hypertonic saline, regular diet, continue to monitor sodium level, anticipate DCing hypertonic saline now that Pt is eating and taking sodium tabs. <Jeremiah QuickEDER banks-C - Last Filed: 06/11/21 15:21> (7) Elevated BUN: Code(s): R79.9 - Abnormal finding of blood chemistry, unspecified <Jeremiah MichaudEDER-C - Last Filed: 06/11/21 15:21> Status: Acute <Jeremiah QuickEDER banks-C - Last Filed: 06/11/21 15:21> Assessment and Plan: 06/11/2021 Resolved <Jeremiah QuickEDER banks-C - Last Filed: 06/11/21 15:21> (8) Elevated AST (SGOT): Code(s): R74.01 - Elevation of levels of liver transaminase levels <Jeremiah Janae Michaud APN-C - Last Filed: 06/11/21 15:21> Status: Acute <GEOVANNI ChristopherN-C - Last Filed: 06/11/21 15:21> Assessment and Plan: 06/11/2021 AST 79 <Jeremiah Michaud APN-C - Last Filed: 06/11/21 15:21> (9) Malnutrition: Code(s): E46 - Unspecified protein-calorie malnutrition <Jeremiah Michaud APN-C - Last Filed: 06/11/21 15:21> Status: Acute <GEOVANNI ChristopherN-C - Last Filed: 06/11/21 15:21> Assessment and Plan: 06/11/2021 Continue [place]
[2021-06-11] MEDS: ENOXAPARIN 30 MG/0.3 ML SYRINGE SUB-Q ×2 (08:28→21:04)
[2021-06-11] MEDS: SACCHAROMYCES BOULARDII 250 MG CAPSULE PO ×2 (08:30→17:01)
[2021-06-11] MEDS: DEXAMETHASONE SOD PHOS INJ 4 MG/ML VIAL 6 MG IV PUSH (08:30)
[2021-06-11] MEDS: AZITHROMYCIN 250 MG TABLET 500 MG PO (08:31)
[2021-06-11] MEDS: POTASSIUM CHLORIDE 20 MEQ TABLET 40 MEQ PO (08:31)
[2021-06-11] MEDS: SODIUM CHLORIDE 1 GM TABLET PO ×2 (08:31→17:01)
[2021-06-11] MEDS: ESCITALOPRAM OXALATE 5 MG TABLET PO (08:32)
[2021-06-11] MEDS: PRAVASTATIN SODIUM 20 MG TABLET PO (08:32)
[2021-06-11] MEDS: THERAPEUTIC MULTIVITAMINS/MINERALS TAB (*BKC) 1 TABLET PO (08:32)
[2021-06-11] MEDS: TAMSULOSIN HCL 0.4 MG CAPSULE PO (08:32)
[2021-06-11] MEDS: MEGESTROL ACETATE (*CHEMO) 40 MG TABLET PO ×4 (08:32→21:05)
[2021-06-11] MEDS: MAGNESIUM OXIDE 400 MG TABLET PO ×2 (08:32→17:01)
[2021-06-11 09:22] VITALS: PULSE 71
[2021-06-11] MEDS: SODIUM CHLORIDE 3% 500 ML 35 ML IV CONT ×2 (09:22→21:06)
[2021-06-11] MEDS: atenoloL 50 MG TABLET PO (09:22)
[2021-06-11 11:38] LABS: Anion Gap 7 mmol/L (8-16); Blood Urea Nitrogen 10 mg/dL (7-18); Calcium 7.6 mg/dL (8.5-10.1); Carbon Dioxide 25 mmol/L (21-32); Chloride 99 mmol/L (98-108); Estimated CRCL calculation 73 ml/min; Estimated Glomerular Filt Rate > 60; Glucose 111 mg/dL (70-99); Osmolality Calculated 272 mOsm/kg (285-295); Potassium 4.1 mmol/L (3.5-5.1); Sodium 131 mmol/L (136-145)
[2021-06-11 16:00] VITALS: BP 142/84; PULSE 84; RESP 18; TEMP 36.6; O2SAT 100
[2021-06-11] MEDS: traZODone HCL 50 MG TABLET PO (21:05)
[2021-06-12] VITALS: BP 170/97; PULSE 77; RESP 20; TEMP 36.6; O2SAT 100
[2021-06-12 07:41] LABS: Hematocrit 34.6 % (37.0-46.0); Hemoglobin 11.8 g/dL (12.4-15.3); Mean Corpuscular HGB Conc 34.1 g/dL (32.0-36.0); Mean Corpuscular Hemoglobin 29.7 pg (27.0-31.0); Mean Corpuscular Volume 87.2 fL (78.0-102.0); Mean Platelet Volume 9.4 fl (8.7-11.0); Platelet Count Result 385 K/mm3 (150-420); Red Blood Count 3.97 M/mm3 (4.70-6.10); Red Cell Distribution Width 14.7 % (11.6-14.4)
[2021-06-12 07:51] LABS: Blood Urea Nitrogen 8 mg/dL (7-18); Calcium 7.8 mg/dL (8.5-10.1); Carbon Dioxide 25 mmol/L (21-32); Estimated CRCL calculation 87 ml/min; Estimated Glomerular Filt Rate > 60; Glucose 88 mg/dL (70-99)
[2021-06-12 08:00] VITALS: BP 121/82; PULSE 89; RESP 14; TEMP 36.6; O2SAT 100
[2021-06-12 08:07] LABS: Alanine Aminotransferase 98 U/L (16-63)
[2021-06-12] MEDS: POTASSIUM CHLORIDE 20 MEQ TABLET 40 MEQ PO (08:15)
[2021-06-12 08:27] LABS: INR 1.1; Prothrombin Time 11.4 Seconds (9.50-12.10)
[2021-06-12] MEDS: SACCHAROMYCES BOULARDII 250 MG CAPSULE PO ×2 (09:00→17:39)
[2021-06-12] MEDS: methocarbamoL 750 MG TABLET PO (09:01)
[2021-06-12] MEDS: ENOXAPARIN 30 MG/0.3 ML SYRINGE SUB-Q ×2 (09:01→20:55)
[2021-06-12] MEDS: DEXAMETHASONE SOD PHOS INJ 4 MG/ML VIAL 6 MG IV PUSH (09:01)
[2021-06-12] MEDS: ESCITALOPRAM OXALATE 5 MG TABLET PO (09:02)
[2021-06-12] MEDS: SODIUM CHLORIDE 1 GM TABLET PO ×2 (09:02→17:41)
[2021-06-12] MEDS: TAMSULOSIN HCL 0.4 MG CAPSULE PO (09:02)
[2021-06-12] MEDS: MEGESTROL ACETATE (*CHEMO) 40 MG TABLET PO ×4 (09:03→20:55)
[2021-06-12] MEDS: THERAPEUTIC MULTIVITAMINS/MINERALS TAB (*BKC) 1 TABLET PO (09:03)
[2021-06-12] MEDS: AZITHROMYCIN 250 MG TABLET 500 MG PO (09:03)
[2021-06-12 09:04] VITALS: PULSE 97
[2021-06-12] MEDS: PRAVASTATIN SODIUM 20 MG TABLET PO (09:04)
[2021-06-12] MEDS: MAGNESIUM OXIDE 400 MG TABLET PO ×2 (09:04→17:39)
[2021-06-12] MEDS: atenoloL 50 MG TABLET PO (09:04)
[2021-06-12] MEDS: HYDROcodone/acetaminophen (*CRX) 5-325 MG TABLET 1 TAB PO ×2 (09:29→17:40)
[2021-06-12] MEDS: chlordiazePOXIDE (*CRX) 10 MG CAPSULE PO ×2 (09:30→20:56)
[2021-06-12] MEDS: SODIUM CHLORIDE 3% 500 ML 35 ML IV CONT (13:15)
[2021-06-12 13:45] LABS: Anion Gap 1 mmol/L (8-16); Chloride 99 mmol/L (98-107); Osmolality Calculated 257 mOsm/kg (285-295); Potassium 3.9 mmol/L (3.4-5.0); Sodium 125 mmol/L (137-145)
--- NOTE | 2021-06-12 14:56 | PM.IMPN ---
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), no fever or chills, continue Decadron, Rocephin, and Azithromycin, Cr 0.51, BUN 10, ALT 79 06/12/2021 no respiratory complaints again today, remains on RA with SpO2 99%, lung sounds remain very diminished, Cr 0.40, eGFR >60, eCrCl 87, ALT 98 (2) Pneumonia: Qualifiers: Laterality: bilateral Lung location: unspecified part of lung Pneumonia type: due to unspecified organism Qualified Code(s): J18.9 - Pneumonia, unspecified organism Code(s): J18.9 - Pneumonia, unspecified organism Status: Acute Assessment and Plan: 06/11/2021 Continue Azithromycin and Rocephin, WBC 12.4, not requiring supplemental O2 06/12/2021 continue as above, no respiratory complaints, not requiring supplemental osygen (3) Pneumomediastinum: Code(s): J98.2 - Interstitial emphysema Status: Acute Assessment and Plan: Stable Pneumomediastinum with subcutaneous gas extending into the neck and left axilla 06/08/2021 CT from from 06/03/2021 indicating stable pneumomediastinum ... (4) Chronic back pain: Code(s): M54.9 - Dorsalgia, unspecified; G89.29 - Other chronic pain Status: Acute Assessment and Plan: Continue Tylenol along with tramadol and [place] (5) Generalized muscle weakness: Code(s): M62.81 - Muscle weakness (generalized) Status: Acute Assessment and Plan: 06/11/2021 Pt is feeding himself now and appears more alert with clear speech (6) Hyponatremia: Code(s): E87.1 - Hypo-osmolality and hyponatremia Status: Acute Assessment and Plan: 06/11/2021 Na 129 this AM, Sodium tabs, Hypertonic saline, regular diet, continue to monitor sodium level, anticipate DCing hypertonic saline now that Pt is eating and taking sodium tabs. 06/12/2021 Na 125, encourage Pt to add salt to his diet, continue sodium tabs and hypertonic saline (7) Elevated BUN: Code(s): R79.9 - Abnormal finding of blood chemistry, unspecified Status: Acute Assessment and Plan: 06/11/2021 Resolved (8) Elevated AST (SGOT): Code(s): R74.01 - Elevation of levels of liver transaminase levels Status: Acute Assessment and Plan: 06/11/2021 AST 79 (9) Malnutrition: Code(s): E46 - Unspecified protein-calorie malnutrition Status: Acute Assessment and Plan: 06/11/2021 Continue Megace, Pt is feeding himself now, consumes most of his meals, more alert, speech clear 06/12/2021 continues to eat well (10) Depressed: Code(s): F32.9 - Major depressive disorder, single episode, unspecified Status: Acute Assessment and Plan: Patient reports depression Lexapro given (11) Drug abuse and dependence: Code(s): F19.20 - Other psychoactive substance dependence, uncomplicated Status: Acute Assessment and Plan: 06/11/2021 Pain is controlled (12) Hypomagnesemia: Code(s): E83.42 - Hypomagnesemia Status: Acute Assessment and Plan: 06/11/2021 resolved, will monitor as needed Additional Plan 2130: 06/06/2021 [facility] offered a bed for this pt which was refused as a repeat CXR showed continued resolution of the subcutaneous gas of the left shoulder. Pt was in no acute distress. 06/09/2021 Exploring options for Pt for when DC time arrives. Placement, return to family members home, with or without Hospice Services Subjective Date/time seen: 06/12/21 14:56 Pt is doing well today. He is looking forward to discharge however there is not place for him to go at this time. Several voice messages have been left with his daughter Ameena who is his POA. Pt has no complaints of SOB. He is feeding himself when his t
[2021-06-12 15:55] VITALS: BP 125/78; PULSE 78; RESP 18; TEMP 36.6; O2SAT 100
[2021-06-12] MEDS: traZODone HCL 50 MG TABLET PO (20:56)
[2021-06-13] VITALS: BP 144/78; PULSE 84; RESP 20; TEMP 36.7; O2SAT 99
--- NOTE | 2021-06-13 00:23 | PC.NURSE ---
Armando resting VS obtained,repositioned onto right side from left side. request drink given via fiction writer Requested also cup ice and a Corrie Mist drink; was provided. Continued Isolation with Pneumonia.Continued Tuning Reposioning q 2 hours. Deep breathing encouraged, O2 Sat 99%.
[2021-06-13] MEDS: SODIUM CHLORIDE 3% 500 ML 35 ML IV CONT ×2 (04:05→19:24)
[2021-06-13 05:44] LABS: Hemoglobin 11.7 g/dL (12.4-15.3); Mean Corpuscular HGB Conc 34.4 g/dL (32.0-36.0); Mean Corpuscular Hemoglobin 29.6 pg (27.0-31.0); Mean Corpuscular Volume 86.1 fL (78.0-102.0); Mean Platelet Volume 9.3 fl (8.7-11.0); Platelet Count Result 420 K/mm3 (150-420); Red Blood Count 3.95 M/mm3 (4.70-6.10); Red Cell Distribution Width 14.5 % (11.6-14.4); White Blood Count 14.1 K/mm3 (4.8-10.8)
[2021-06-13 05:53] LABS: INR 1.1; Prothrombin Time 11.5 Seconds (9.50-12.10)
[2021-06-13 06:00] LABS: Anion Gap 8 mmol/L (8-16); Blood Urea Nitrogen 9 mg/dL (7-18); Carbon Dioxide 23 mmol/L (21-32); Chloride 103 mmol/L (98-108); Estimated CRCL calculation 71 ml/min; Estimated Glomerular Filt Rate > 60; Glucose 113 mg/dL (70-99); Osmolality Calculated 277 mOsm/kg (285-295); Potassium 4.1 mmol/L (3.5-5.1); Sodium 134 mmol/L (136-145)
[2021-06-13 06:01] LABS: Alanine Aminotransferase 104 U/L (16-63)
--- NOTE | 2021-06-13 06:30 | PC.NURSE ---
Armando T/R every 2 hours. Position with use of pillows to marco prominents. Says someone told him he was or could go home today. This is uncertain information on director underwriter sales, [employer] will pass this info down to next staff shift. Turned pulled up in bed Cath remains in tact draining clear pale yellow urine. side rails up call light in reach. Iv continues to run @35ml per hour without issues Right arm still appears slightly edematous. No complaints at this time after positioning was complete. Call light in reach in workin order. Will continue to monitor and observe changes or needs.
[2021-06-13 08:00] VITALS: BP 142/79; PULSE 79; RESP 16; TEMP 36.7; O2SAT 100
[2021-06-13] MEDS: POTASSIUM CHLORIDE 20 MEQ TABLET 40 MEQ PO (08:20)
[2021-06-13] MEDS: AZITHROMYCIN 250 MG TABLET 500 MG PO (09:35)
[2021-06-13] MEDS: ENOXAPARIN 30 MG/0.3 ML SYRINGE SUB-Q ×2 (09:45→21:06)
[2021-06-13] MEDS: HYDROcodone/acetaminophen (*CRX) 5-325 MG TABLET 1 TAB PO ×2 (09:46→17:38)
[2021-06-13] MEDS: ESCITALOPRAM OXALATE 5 MG TABLET PO (09:46)
[2021-06-13] MEDS: SODIUM CHLORIDE 1 GM TABLET PO ×2 (09:46→17:38)
[2021-06-13] MEDS: THERAPEUTIC MULTIVITAMINS/MINERALS TAB (*BKC) 1 TABLET PO (09:47)
[2021-06-13] MEDS: chlordiazePOXIDE (*CRX) 10 MG CAPSULE PO (09:47)
[2021-06-13] MEDS: TAMSULOSIN HCL 0.4 MG CAPSULE PO (09:48)
[2021-06-13 09:49] VITALS: PULSE 77
[2021-06-13] MEDS: PRAVASTATIN SODIUM 20 MG TABLET PO (09:49)
[2021-06-13] MEDS: atenoloL 50 MG TABLET PO (09:49)
[2021-06-13] MEDS: MAGNESIUM OXIDE 400 MG TABLET PO ×2 (09:49→17:38)
[2021-06-13] MEDS: DICYCLOMINE HCL 10 MG CAPSULE 20 MG PO (09:50)
[2021-06-13] MEDS: SACCHAROMYCES BOULARDII 250 MG CAPSULE PO ×2 (09:50→17:39)
[2021-06-13] MEDS: MEGESTROL ACETATE (*CHEMO) 40 MG TABLET PO ×3 (09:50→21:06)
[2021-06-13] MEDS: methocarbamoL 750 MG TABLET PO (09:51)
--- NOTE | 2021-06-13 11:14 | PM.IMPN ---
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 <Jeremiah QuickTIMMY banks - Last Filed: 06/13/21 12:28> (2) Pneumonia: Qualifiers: Laterality: bilateral Lung location: unspecified part of lung Pneumonia type: due to unspecified organism Qualified Code(s): J18.9 - Pneumonia, unspecified organism <Jeremiah QuickTIMMY banks - Last Filed: 06/13/21 12:28> Code(s): J18.9 - Pneumonia, unspecified organism <Jeremiah QuickTIMMY banks - Last Filed: 06/13/21 12:28> Status: Acute <Jeremiah QuickTIMMY banks - Last Filed: 06/13/21 12:28> Assessment and Plan: 06/11/2021 Continue Azithromycin and Rocephin, WBC 12.4, not requiring supplemental O2 06/12/2021 continue as above, no respiratory complaints, not requiring supplemental oxygen 06/13/2021 Pt has had 10 days of antibiotics will stop Ab today <Jeremiah Cardoso TIMMY Michaud - Last Filed: 06/13/21 12:28> (3) Pneumomediastinum: Code(s): J98.2 - Interstitial emphysema <Jeremiah MichaudEDER-C - Last Filed: 06/13/21 12:28> Status: Acute <Jeremiah MichaudEDER-C - Last Filed: 06/13/21 12:28> Assessment and Plan: Stable Pneumomediastinum with subcutaneous gas extending into the neck and left axilla 06/08/2021 CT from from 06/03/2021 indicating stable pneumomediastinum ... <Jeremiah MichaudEDER-C - Last Filed: 06/13/21 12:28> (4) Chronic back pain: Code(s): M54.9 - Dorsalgia, unspecified; G89.29 - Other chronic pain <Jeremiah MichaudEDER-C - Last Filed: 06/13/21 12:28> Status: Acute <Jeremiah MichaudEDER-C - Last Filed: 06/13/21 12:28> Assessment and Plan: Continue Tylenol along with tramadol and [place] <Jeremiah MichaudEDER-C - Last Filed: 06/13/21 12:28> (5) Generalized muscle weakness: Code(s): M62.81 - Muscle weakness (generalized) <Jeremiah MichaudEDER-C - Last Filed: 06/13/21 12:28> Status: Acute <Jeremiah MichaudEDER-C - Last Filed: 06/13/21 12:28> Assessment and Plan: 06/11/2021 Pt is feeding himself now and appears more alert with clear speech 06/13/2021 Pt is more alert, speaks clearly, feeds self, still weak <Jeremiah MichaudEDER-C - Last Filed: 06/13/21 12:28> (6) Hyponatremia: Code(s): E87.1 - Hypo-osmolality and hyponatremia <Jeremiah MichaudEDER-C - Last Filed: 06/13/21 12:28> Status: Acute <Jeremiah MichaudEDER-C - Last Filed: 06/13/21 12:28> Assessment and Plan: 06/11/2021 Na 129 this AM, Sodium tabs, Hypertonic saline, regular diet, continue to monitor sodium level, anticipate DCing hypertonic saline now that Pt is eating and taking sodium tabs. 06/12/2021 Na 125, encourage Pt to add salt to his diet, continue sodium tabs and hypertonic saline 06/13/2021 Na is 134 today, continue with diet plan and supplemental Sodium tabs. <TIMMY Christopher - Last Filed: 06/13/21 12:28> (7) Elevated BUN: Code(s): R79.9 - Abnormal finding of blood chemistry, unspecified <TIMMY Christopher - Last Filed: 06/13/21 12:28> Status: Acute <TIMMY Christopher - Last Filed: 06/13/21 12:28> Assessment
[2021-06-13 16:00] VITALS: BP 133/80; PULSE 78; RESP 18; TEMP 36.8; O2SAT 100
[2021-06-13] MEDS: traZODone HCL 50 MG TABLET PO (21:06)
[2021-06-13 23:49] VITALS: BP 130/78; PULSE 76; RESP 18; TEMP 36.4; O2SAT 100
--- NOTE | 2021-06-14 00:06 | PC.NURSE ---
Scvott out of isolation today from Covid +, Requires assist turn repositioning every two hours. Turned onto right side all bony prominentsv supported with pillows. heels dry skin intact without pressure issues. IV Na 3% infusing at 35ml/hour without difficulties. Great encopuragement needed to do oun simple ADLs, getting drinks eating holding cups and/or eating utensils. Bilateral hands and arnd still slight edema/fluid appearance.
--- NOTE | 2021-06-14 00:12 | PC.NURSE ---
Armando strange alert/oriented ,x3. skin dry warm , bilateral arms/hands cool with slight edema/fluid appearance. IV infusing Na3% @35ml/hour; no problems or issues noted. Repositioned on right side, drink provided. All bony prominences provided with pillow for support and breakdown prevention.Coccyx and lower back area with foam dressings for preventative measures. Call light in reach TV turned off per nicolle request at this time. Will continue to monitor and observe and so not changes and/or progress.
--- NOTE | 2021-06-14 02:39 | PC.NURSE ---
Armando requesting frequently to askl staff give him drinks placement of urinal, says he cant do these things. Encouragement required constantly. I am now handing him his glass of drinks to hold himself Attempting to encopurage call to nurse once completed use of urinal due to complete bed change because he cant move it without spilling it onto bed. Yells out at times with repositioning.
--- NOTE | 2021-06-14 04:48 | PC.NURSE ---
Armando STRONG site wth leakage. RN Blaire D/C site restarted in left arm 22g, 3% Na@35/hour restarted without difficulty. Call light placed within reach. urinal placed with 400 cc out.
[2021-06-14 05:22] LABS: Hematocrit 27.8 % (37.0-46.0); Hemoglobin 9.7 g/dL (12.4-15.3); Mean Corpuscular HGB Conc 34.9 g/dL (32.0-36.0); Mean Corpuscular Hemoglobin 29.9 pg (27.0-31.0); Mean Corpuscular Volume 85.8 fL (78.0-102.0); Mean Platelet Volume 9.3 fl (8.7-11.0); Platelet Count Result 386 K/mm3 (150-420); Red Blood Count 3.24 M/mm3 (4.70-6.10); Red Cell Distribution Width 14.8 % (11.6-14.4); White Blood Count 11.7 K/mm3 (4.8-10.8)
[2021-06-14 05:38] LABS: Anion Gap 8 mmol/L (8-16); Blood Urea Nitrogen 10 mg/dL (7-18); Calcium 7.5 mg/dL (8.5-10.1); Carbon Dioxide 23 mmol/L (21-32); Chloride 106 mmol/L (98-108); Estimated CRCL calculation 85 ml/min; Estimated Glomerular Filt Rate > 60; Glucose 85 mg/dL (70-99); Osmolality Calculated 282 mOsm/kg (285-295); Potassium 3.9 mmol/L (3.5-5.1); Sodium 137 mmol/L (136-145)
[2021-06-14 05:40] LABS: Alanine Aminotransferase 106 U/L (16-63)
--- NOTE | 2021-06-14 06:25 | PC.NURSE ---
Mexican Food Maker encouraged every two hours for waiting to urinate in help aide in more sufficient out and help in aide in decreased spasms. Armando is very demanding of things this a.m. Added output for day shift 500cc to be reported off. Call light in reach no signs of distress or problems. Continued monitoring
[2021-06-14 08:00] VITALS: BP 172/118; PULSE 85; RESP 16; TEMP 36.4; O2SAT 100
[2021-06-14] MEDS: MEGESTROL ACETATE (*CHEMO) 40 MG TABLET PO ×4 (09:00→21:53)
[2021-06-14] MEDS: ENOXAPARIN 30 MG/0.3 ML SYRINGE SUB-Q ×2 (09:00→21:52)
[2021-06-14] MEDS: SODIUM CHLORIDE 1 GM TABLET PO ×2 (09:00→16:57)
[2021-06-14] MEDS: chlordiazePOXIDE (*CRX) 10 MG CAPSULE PO ×2 (09:01→21:58)
[2021-06-14] MEDS: THERAPEUTIC MULTIVITAMINS/MINERALS TAB (*BKC) 1 TABLET PO (09:01)
[2021-06-14] MEDS: POTASSIUM CHLORIDE 20 MEQ TABLET 40 MEQ PO (09:01)
[2021-06-14 09:02] VITALS: PULSE 85
[2021-06-14] MEDS: PRAVASTATIN SODIUM 20 MG TABLET PO (09:02)
[2021-06-14] MEDS: HYDROcodone/acetaminophen (*CRX) 5-325 MG TABLET 1 TAB PO ×2 (09:02→16:56)
[2021-06-14] MEDS: MAGNESIUM OXIDE 400 MG TABLET PO ×2 (09:02→16:57)
[2021-06-14] MEDS: atenoloL 50 MG TABLET PO (09:02)
[2021-06-14] MEDS: TAMSULOSIN HCL 0.4 MG CAPSULE PO (09:04)
[2021-06-14] MEDS: methocarbamoL 750 MG TABLET PO (09:04)
[2021-06-14] MEDS: ESCITALOPRAM OXALATE 5 MG TABLET PO (09:04)
[2021-06-14] MEDS: SACCHAROMYCES BOULARDII 250 MG CAPSULE PO ×2 (09:04→16:57)
[2021-06-14 11:17] VITALS: BP 120/71; PULSE 89; RESP 14
--- NOTE | 2021-06-14 13:48 | PM.IMPN ---
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 06/14/2021 WBC 11.7, Cr 0.41, eGFR> 60, eCrCl 85, RA 99%, SpO2, states he is unable to grab drink from table however he was able to feed himself breakfast this AM, No respiratory distress/SOB/increased WOB <TIMMY Christopher - Last Filed: 06/14/21 14:06> (2) Pneumonia: Qualifiers: Laterality: bilateral Lung location: unspecified part of lung Pneumonia type: due to unspecified organism Qualified Code(s): J18.9 - Pneumonia, unspecified organism <TIMMY Christopher - Last Filed: 06/14/21 14:06> Code(s): J18.9 - Pneumonia, unspecified organism <TIMMY Christopher - Last Filed: 06/14/21 14:06> Status: Acute <TIMMY Christopher - Last Filed: 06/14/21 14:06> Assessment and Plan: 06/11/2021 Continue Azithromycin and Rocephin, WBC 12.4, not requiring supplemental O2 06/12/2021 continue as above, no respiratory complaints, not requiring supplemental oxygen 06/13/2021 Pt has had 10 days of antibiotics will stop Ab today 06/14/2021 Has completed his antibiotics <Jeremiah QuickTIMMY banks - Last Filed: 06/14/21 14:06> (3) Pneumomediastinum: Code(s): J98.2 - Interstitial emphysema <Jeremiah QuickTIMMY banks - Last Filed: 06/14/21 14:06> Status: Acute <Jeremiah QuickEDER banks-C - Last Filed: 06/14/21 14:06> Assessment and Plan: Stable Pneumomediastinum with subcutaneous gas extending into the neck and left axilla 06/08/2021 CT from from 06/03/2021 indicating stable pneumomediastinum ... <Jeremiah QuickTIMMY banks - Last Filed: 06/14/21 14:06> (4) Chronic back pain: Code(s): M54.9 - Dorsalgia, unspecified; G89.29 - Other chronic pain <Jeremiah QuickEDER banks-C - Last Filed: 06/14/21 14:06> Status: Acute <Jeremiah QuickTIMMY banks - Last Filed: 06/14/21 14:06> Assessment and Plan: Continue Tylenol along with tramadol and [place] <Jeremiah QuickBRONSON banksC - Last Filed: 06/14/21 14:06> (5) Generalized muscle weakness: Code(s): M62.81 - Muscle weakness (generalized) <Jeremiah QuickBRONSON banksC - Last Filed: 06/14/21 14:06> Status: Acute <Jeremiah QuickEDER banks-C - Last Filed: 06/14/21 14:06> Assessment and Plan: 06/11/2021 Pt is feeding himself now and appears more alert with clear speech 06/13/2021 Pt is more alert, speaks clearly, feeds self, still weak 06/14/2021 no change <Jeremiah Cardoso BRONSON MichaudC - Last Filed: 06/14/21 14:06> (6) Hyponatremia: Code(s): E87.1 - Hypo-osmolality and hyponatremia <TIMMY Christopher - Last Filed: 06/14/21 14:06> Status: Acute <TIMMY Christopher - Last Filed: 06/14/21 14:06> Assessment and Plan: 06/11/2021 Na 129 this AM, Sodium tabs, Hypertonic saline, regular diet, continue to monitor sodium level, anticipate DCing hypertonic saline now that Pt is eating and taking sodium tabs. 06/12/2021 Na 125, encourage Pt to add salt to his diet, continue sodium tabs and hypertonic saline 06/13/2021 Na is 134 today, continue with diet plan and supplemental Sodium tabs. 06/14/2021 Na is 137 today, will
[2021-06-14 16:00] VITALS: BP 107/58; PULSE 63; RESP 16; TEMP 37.7; O2SAT 100
--- NOTE | 2021-06-14 16:15 | PC.NURSE ---
PT CALLED FOR ASSISTANCE TO COMMODE. ASSISTED WITH LAITH DAVIDSON. PT HAS POOR TRUNK CONTROL AND LEANS FORWARD, STATES HE IS UNABLE STRAIGHTEN BACK. REQUIRES MUCH ENCOURAGEMENT TO USE UPPER EXTREMITIES, REPORTED UNABLE TO LIFT HANDS TO HOLD GRAB BAR, HOWEVER HE WAS ABLE TO AND DEMONSTRATED WELL. PT SHOWED DIFFICULTY SUPPORTING SELF WHILE SEATED ON COMMODE SO THIS NURSE STOOD BY, PT YELLED AT NURSE NOT TO HOVER , EDUCATED ON SAFETY AND FALL PRECAUTIONS, PT HAD LARGE HARD BM, ASSISTED BACK TO RECLINER CHAIR, PT STATES, 'GIVE ME A DRINK, I CANT REACH IT , HANDED PATIENT CUP OF TASH MIST FROM OVERBED TABLE NEXT TO PATIENT, PT ASKED TO PUT STRAW TO MOUTH THAT HE COULD NOT HOLD CUP, ENCOURAGED PATIENT TO GRASP CUP AND HE DID WITHOUT DIFFICULTY AND RAISED CUP/STRAW TO MOUTH. PT REQUESTED REESES PB CUP INDIVIDUALLY WRAPPED CANDIES FROM DRAWER, GIVEN, STATES, OPEN THEM FOR ME. AGAIN ENCOURAGED PATIENT TO TRY AND HELP WOULD BE PROVIDED IF NEEDED, PT ABLE TO UNWRAP CANDIES WITHOUT DIFFICULTY AND PUT TO MOUTH, PT ALSO PROVIDED BAG TO PLACE TRASH AND OBSERVED PT ABILITY TO PUT TRASH INSIDE. VSS. CALL LIGHT IN REACH OF PATIENT HAND ON LAP.
[2021-06-14] MEDS: BISACODYL 5 MG TABLET EC PO (16:57)
[2021-06-14] MEDS: traZODone HCL 50 MG TABLET PO (21:53)
--- NOTE | 2021-06-14 22:07 | PC.NURSE ---
Patient c/o bottom hurting. Swimming Coach offered to reposition patient into bed, patient stated no, I dont wanna lay down . Patient was educated on turning and repositioning frequently to help prevent any sores and help promote healing. Swimming Coach offered prior to exiting room and patient stated i wanna stay in the chair . Patient sitting in recliner, eating Bk's cup and drinking [place] mist. Will continue to monitor. high school history teacher notified.
[2021-06-15] VITALS: BP 96/60; PULSE 88; RESP 18; TEMP 37.2; O2SAT 90
[2021-06-15] MEDS: HYDROcodone/acetaminophen (*CRX) 5-325 MG TABLET 1 TAB PO ×2 (00:44→20:58)
--- NOTE | 2021-06-15 01:57 | PC.NURSE ---
Unit Manager Rn encouraged adair to lay in bed upon first arrival. Adair refused at this time, sign writer hand layed him back in recliner. Made all available drinks in reach up until; this point. Layed him abed with use of [place] steady and assist x2 staff. Positioned onto right side. Call light placed in reach TV requested off, siderails up. Will continue to monitor and observe.
[2021-06-15 05:48] LABS: Hematocrit 28.6 % (37.0-46.0); Hemoglobin 9.8 g/dL (12.4-15.3); Mean Corpuscular HGB Conc 34.3 g/dL (32.0-36.0); Mean Corpuscular Hemoglobin 30.2 pg (27.0-31.0); Mean Platelet Volume 9.3 fl (8.7-11.0); Platelet Count Result 387 K/mm3 (150-420); Red Blood Count 3.25 M/mm3 (4.70-6.10); Red Cell Distribution Width 14.8 % (11.6-14.4); White Blood Count 15.1 K/mm3 (4.8-10.8)
[2021-06-15 06:03] LABS: Alanine Aminotransferase 116 U/L (16-63); Anion Gap 7 mmol/L (8-16); Blood Urea Nitrogen 12 mg/dL (7-18); Calcium 7.6 mg/dL (8.5-10.1); Carbon Dioxide 23 mmol/L (21-32); Chloride 105 mmol/L (98-108); Estimated CRCL calculation 74 ml/min; Estimated Glomerular Filt Rate > 60; Glucose 90 mg/dL (70-99); Osmolality Calculated 279 mOsm/kg (285-295); Sodium 135 mmol/L (136-145)
[2021-06-15 07:36] VITALS: BP 127/82; PULSE 106; RESP 20; TEMP 36.8; O2SAT 97
[2021-06-15] MEDS: ENOXAPARIN 30 MG/0.3 ML SYRINGE SUB-Q ×2 (08:18→20:47)
[2021-06-15] MEDS: ESCITALOPRAM OXALATE 5 MG TABLET PO (08:20)
[2021-06-15] MEDS: MAGNESIUM OXIDE 400 MG TABLET PO ×2 (08:20→16:43)
[2021-06-15] MEDS: POTASSIUM CHLORIDE 20 MEQ TABLET 40 MEQ PO (08:20)
[2021-06-15] MEDS: SACCHAROMYCES BOULARDII 250 MG CAPSULE PO ×2 (08:20→16:43)
[2021-06-15 08:21] VITALS: PULSE 106
[2021-06-15] MEDS: MEGESTROL ACETATE (*CHEMO) 40 MG TABLET PO ×4 (08:21→20:46)
[2021-06-15] MEDS: THERAPEUTIC MULTIVITAMINS/MINERALS TAB (*BKC) 1 TABLET PO (08:21)
[2021-06-15] MEDS: TAMSULOSIN HCL 0.4 MG CAPSULE PO (08:21)
[2021-06-15] MEDS: BISACODYL 5 MG TABLET EC PO (08:21)
[2021-06-15] MEDS: atenoloL 50 MG TABLET PO (08:21)
[2021-06-15] MEDS: PRAVASTATIN SODIUM 20 MG TABLET PO (08:21)
[2021-06-15] MEDS: SODIUM CHLORIDE 1 GM TABLET PO ×2 (08:21→16:42)
--- NOTE | 2021-06-15 08:46 | PM.IMPN ---
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 06/14/2021 WBC 11.7, Cr 0.41, eGFR> 60, eCrCl 85, RA 99%, SpO2, states he is unable to grab drink from table however he was able to feed himself breakfast this AM, No respiratory distress/SOB/increased WOB 06/15/2021 WBC 15.1, no SOB, no increased WOB, RA SpO2 99% (2) Pneumonia: Qualifiers: Laterality: bilateral Lung location: unspecified part of lung Pneumonia type: due to unspecified organism Qualified Code(s): J18.9 - Pneumonia, unspecified organism Code(s): J18.9 - Pneumonia, unspecified organism Status: Acute Assessment and Plan: 06/11/2021 Continue Azithromycin and Rocephin, WBC 12.4, not requiring supplemental O2 06/12/2021 continue as above, no respiratory complaints, not requiring supplemental oxygen 06/13/2021 Pt has had 10 days of antibiotics will stop Ab today 06/14/2021 Has completed his antibiotics (3) Pneumomediastinum: Code(s): J98.2 - Interstitial emphysema Status: Acute Assessment and Plan: Stable Pneumomediastinum with subcutaneous gas extending into the neck and left axilla 06/08/2021 CT from from 06/03/2021 indicating stable pneumomediastinum ... (4) Chronic back pain: Code(s): M54.9 - Dorsalgia, unspecified; G89.29 - Other chronic pain Status: Acute Assessment and Plan: Continue Tylenol along with tramadol and [place] (5) Generalized muscle weakness: Code(s): M62.81 - Muscle weakness (generalized) Status: Acute Assessment and Plan: 06/11/2021 Pt is feeding himself now and appears more alert with clear speech 06/13/2021 Pt is more alert, speaks clearly, feeds self, still weak 06/14/2021 no change (6) Hyponatremia: Code(s): E87.1 - Hypo-osmolality and hyponatremia Status: Acute Assessment and Plan: 06/11/2021 Na 129 this AM, Sodium tabs, Hypertonic saline, regular diet, continue to monitor sodium level, anticipate DCing hypertonic saline now that Pt is eating and taking sodium tabs. 06/12/2021 Na 125, encourage Pt to add salt to his diet, continue sodium tabs and hypertonic saline 06/13/2021 Na is 134 today, continue with diet plan and supplemental Sodium tabs. 06/14/2021 Na is 137 today, will stop hypertonic saline, continue Sodium tabs, continue to have salt available with meals 06/15/2021 Na 135 Hypertonic Saline stopped yesterday, continue Sodium tabs and salt with meals. (7) Elevated BUN: Code(s): R79.9 - Abnormal finding of blood chemistry, unspecified Status: Acute Assessment and Plan: 06/11/2021 Resolved (8) Elevated AST (SGOT): Code(s): R74.01 - Elevation of levels of liver transaminase levels Status: Acute Assessment and Plan: 06/11/2021 ALT 79 06/13/2021 ALT 104 (9) Malnutrition: Code(s): E46 - Unspecified protein-calorie malnutrition Status: Acute Assessment and Plan: 06/11/2021 Continue Megace, Pt is feeding himself now, consumes most of his meals, more alert, speech clear 06/12/2021 continues to eat well 06/13/2021 feeding self, continue Megace, increase sodium intake, Pt more alert, clear speech 06/14/2021 Continue Megace, Sodium tabs, feeding self with tray set up first 06/15/2021 No changes (10) Depressed: Code(s): F32.9 -
[2021-06-15 16:00] VITALS: BP 117/67; PULSE 95; RESP 20; TEMP 36.9; O2SAT 100
[2021-06-15] MEDS: traZODone HCL 50 MG TABLET PO (20:46)
[2021-06-16] VITALS: BP 128/73; PULSE 73; RESP 18; TEMP 36.8; O2SAT 96
[2021-06-16 05:36] LABS: Hematocrit 27.4 % (37.0-46.0); Hemoglobin 9.4 g/dL (12.4-15.3); Mean Corpuscular HGB Conc 34.3 g/dL (32.0-36.0); Mean Corpuscular Volume 87.5 fL (78.0-102.0); Platelet Count Result 389 K/mm3 (150-420); Red Blood Count 3.13 M/mm3 (4.70-6.10); Red Cell Distribution Width 14.9 % (11.6-14.4); White Blood Count 11.1 K/mm3 (4.8-10.8)
[2021-06-16 05:50] LABS: Alanine Aminotransferase 112 U/L (16-63); Anion Gap 6 mmol/L (8-16); Blood Urea Nitrogen 9 mg/dL (7-18); Calcium 7.8 mg/dL (8.5-10.1); Carbon Dioxide 25 mmol/L (21-32); Chloride 106 mmol/L (98-108); Estimated CRCL calculation 73 ml/min; Estimated Glomerular Filt Rate > 60; Glucose 95 mg/dL (70-99); Osmolality Calculated 282 mOsm/kg (285-295); Sodium 137 mmol/L (136-145)
[2021-06-16 07:35] VITALS: BP 130/74; PULSE 101; RESP 20; TEMP 36.7; O2SAT 99
[2021-06-16] MEDS: ENOXAPARIN 30 MG/0.3 ML SYRINGE SUB-Q (08:18)
[2021-06-16 08:19] VITALS: PULSE 101
[2021-06-16] MEDS: SACCHAROMYCES BOULARDII 250 MG CAPSULE PO (08:19)
[2021-06-16] MEDS: ESCITALOPRAM OXALATE 5 MG TABLET PO (08:19)
[2021-06-16] MEDS: THERAPEUTIC MULTIVITAMINS/MINERALS TAB (*BKC) 1 TABLET PO (08:19)
[2021-06-16] MEDS: atenoloL 50 MG TABLET PO (08:19)
[2021-06-16] MEDS: SODIUM CHLORIDE 1 GM TABLET PO (08:19)
[2021-06-16] MEDS: POTASSIUM CHLORIDE 20 MEQ TABLET 40 MEQ PO (08:19)
[2021-06-16] MEDS: MEGESTROL ACETATE (*CHEMO) 40 MG TABLET PO ×2 (08:20→12:13)
[2021-06-16] MEDS: TAMSULOSIN HCL 0.4 MG CAPSULE PO (08:20)
[2021-06-16] MEDS: MAGNESIUM OXIDE 400 MG TABLET PO (08:20)
[2021-06-16] MEDS: BISACODYL 5 MG TABLET EC PO (08:20)
[2021-06-16] MEDS: PRAVASTATIN SODIUM 20 MG TABLET PO (08:20)
--- NOTE | 2021-06-16 08:27 | WPDPN ---
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 06/14/2021 WBC 11.7, Cr 0.41, eGFR> 60, eCrCl 85, RA 99%, SpO2, states he is unable to grab drink from table however he was able to feed himself breakfast this AM, No respiratory distress/SOB/increased WOB 06/15/2021 WBC 15.1, no SOB, no increased WOB, RA SpO2 99% (2) Pneumonia: Qualifiers: Laterality: bilateral Lung location: unspecified part of lung Pneumonia type: due to unspecified organism Qualified Code(s): J18.9 - Pneumonia, unspecified organism Code(s): J18.9 - Pneumonia, unspecified organism Status: Acute Assessment and Plan: X-ray indicates pneumonia possibly Covid pneumonia more than likely viral Will continue azithromycin cefdinir for now blood cultures pending. If blood cultures are negative will discontinue antibiotics Continue as needed albuterol and supplementary oxygen 06/11/2021 Continue Azithromycin and Rocephin, WBC 12.4, not requiring supplemental O2 06/12/2021 continue as above, no respiratory complaints, not requiring supplemental oxygen 06/13/2021 Pt has had 10 days of antibiotics will stop Ab today 06/14/2021 Has completed his antibiotics (3) Pneumomediastinum: Code(s): J98.2 - Interstitial emphysema Status: Acute Assessment and Plan: Stable Pneumomediastinum with subcutaneous gas extending into the neck and left axilla Stable Pneumomediastinum with subcutaneous gas extending into the neck and left axilla 06/08/2021 CT from from 06/03/2021 indicating stable pneumomediastinum ... (4) Chronic back pain: Code(s): M54.9 - Dorsalgia, unspecified; G89.29 - Other chronic pain Status: Acute Assessment and Plan: Continue Tylenol along with tramadol and [place] Continue Tylenol along with tramadol and [place] (5) Generalized muscle weakness: Code(s): M62.81 - Muscle weakness (generalized) Status: Acute Assessment and Plan: Due to not malnutrition Will start PT OT when appropriate 06/11/2021 Pt is feeding himself now and appears more alert with clear speech 06/13/2021 Pt is more alert, speaks clearly, feeds self, still weak 06/14/2021 no change (6) Hyponatremia: Code(s): E87.1 - Hypo-osmolality and hyponatremia Status: Acute Assessment and Plan: Sodium 129>133>134>135>131 Secondary to malnutrition and dehydration Continue IV fluid 06/11/2021 Na 129 this AM, Sodium tabs, Hypertonic saline, regular diet, continue to monitor sodium level, anticipate DCing hypertonic saline now that Pt is eating and taking sodium tabs. 06/12/2021 Na 125, encourage Pt to add salt to his diet, continue sodium tabs and hypertonic saline 06/13/2021 Na is 134 today, continue with diet plan and supplemental Sodium tabs. 06/14/2021 Na is 137 today, will stop hypertonic saline, continue Sodium tabs, continue to have salt available with meals 06/15/2021 Na 135 Hypertonic Saline stopped yesterday, continue Sodium tabs and salt with meals. (7) Elevated BUN: Code(s): R79.9 - Abnormal finding of blood chemistry, unspecified Status: Acute Assessment and Plan: Resolved Slightly elevated BUN 21>13>12 Secondary to dehydration 06/11/20
--- NOTE | 2021-06-16 12:55 | PC.NURSE ---
Discharge report to Cesia, nurse at [facility] re[facility] as the receiving facility for transfer.
--- NOTE | 2021-06-16 13:30 | PM.DS ---
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 06/14/2021 WBC 11.7, Cr 0.41, eGFR> 60, eCrCl 85, RA 99%, SpO2, states he is unable to grab drink from table however he was able to feed himself breakfast this AM, No respiratory distress/SOB/increased WOB 06/15/2021 WBC 15.1, no SOB, no increased WOB, RA SpO2 99% WBCs 11.1 (2) Pneumonia: Qualifiers: Laterality: bilateral Lung location: unspecified part of lung Pneumonia type: due to unspecified organism Qualified Code(s): J18.9 - Pneumonia, unspecified organism Code(s): J18.9 - Pneumonia, unspecified organism Status: Acute Assessment and Plan: X-ray indicates pneumonia possibly Covid pneumonia more than likely viral Will continue azithromycin cefdinir for now blood cultures pending. If blood cultures are negative will discontinue antibiotics Continue as needed albuterol and supplementary oxygen 06/11/2021 Continue Azithromycin and Rocephin, WBC 12.4, not requiring supplemental O2 06/12/2021 continue as above, no respiratory complaints, not requiring supplemental oxygen 06/13/2021 Pt has had 10 days of antibiotics will stop Ab today 06/14/2021 Has completed his antibiotics (3) Pneumomediastinum: Code(s): J98.2 - Interstitial emphysema Status: Acute Assessment and Plan: Stable Pneumomediastinum with subcutaneous gas extending into the neck and left axilla Stable Pneumomediastinum with subcutaneous gas extending into the neck and left axilla 06/08/2021 CT from from 06/03/2021 indicating stable pneumomediastinum ... (4) Chronic back pain: Code(s): M54.9 - Dorsalgia, unspecified; G89.29 - Other chronic pain Status: Acute Assessment and Plan: Continue Tylenol along with tramadol and [place] will discharge with pain medication (5) Generalized muscle weakness: Code(s): M62.81 - Muscle weakness (generalized) Status: Acute Assessment and Plan: Due to not malnutrition Will start PT OT when appropriate 06/11/2021 Pt is feeding himself now and appears more alert with clear speech 06/13/2021 Pt is more alert, speaks clearly, feeds self, still weak 06/14/2021 no change will discharge with PT OT (6) Hyponatremia: Code(s): E87.1 - Hypo-osmolality and hyponatremia Status: Acute Assessment and Plan: Sodium 129>133>134>135>131 Secondary to malnutrition and dehydration Continue IV fluid 06/11/2021 Na 129 this AM, Sodium tabs, Hypertonic saline, regular diet, continue to monitor sodium level, anticipate DCing hypertonic saline now that Pt is eating and taking sodium tabs. 06/12/2021 Na 125, encourage Pt to add salt to his diet, continue sodium tabs and hypertonic saline 06/13/2021 Na is 134 today, continue with diet plan and supplemental Sodium tabs. 06/14/2021 Na is 137 today, will stop hypertonic saline, continue Sodium tabs, continue to have salt available with meals 06/15/2021 Na 135 Hypertonic Saline stopped yesterday, continue Sodium tabs and salt with meals. discharge hyponatremia resolved (7) Elevated BUN: Code(s
--- NOTE | 2021-06-16 13:40 | PC.NURSE ---
EMS arrived to transport patient to receiving facility. Raymond THOMAS of receiving facility has been notified patient is on way. All personal belonging have been bagged up and sent with patient.
--- NOTE | 2021-06-22 13:46 | PC.NURSE ---
prison nurse states they received and understood the discharge instructions.
== END 2021-06-16 13:40 | DRG 177 ==
LOC: CHSED 13:42 → CHS2ND 21:22 → CHSED 06-05 07:22 → CHS2ND 06-05 07:22
PROVIDERS: Nurse Practitioner Family; Admitting Provider Emergency Medicine; Emergency Provider Emergency Medicine; PCP Internal Medicine; Visit Provider Nurse Practitioner
DX: U07.1 COVID-19 (principal); J12.82 Pneumonia due to coronavirus disease 2019; E46 Unspecified protein-calorie malnutrition; E87.1 Hypo-osmolality and hyponatremia; F19.20 Other psychoactive substance dependence, uncomplicated; J98.2 Interstitial emphysema; E83.42 Hypomagnesemia; E86.0 Dehydration; L89.329 Pressure ulcer of left buttock, unspecified stage; L89.319 Pressure ulcer of right buttock, unspecified stage; M48.00 Spinal stenosis, site unspecified; R74.01 Elevation of levels of liver transaminase levels; F32.9 Major depressive disorder, single episode, unspecified; Z87.891 Personal history of nicotine dependence
CPT/HCPCS: 36415; 70450; 71045; 71250; 71260; 74177; 80048; 80053; 80307; 81001; 82550; 82565; 83605; 83735; 84460; 84484; 85025; 85027; 85610; 86140; 87040; 87426; 93005; 96361; 96365; 96375; 96376; 97110; 97162; 97165; 97530; 99285; A9270; C9803; J0696; J1100; J1650; J2270; J3475; J3480; J7030; J7040; J7131; Q9967

== ENCOUNTER 2021-07-28 08:45 | Outpatient (CLI) | payer OTHER, MEDICARE, SELFPAY ==
--- NOTE | ~2021-07-28 | US_ITS ---
EXAMINATION: US art doppler w press LE BI DATE: 07/28/2021 09:37 INDICATION: Peripheral arterial occlusive disease. Right lower limb ulceration. TECHNIQUE: Segmental pressures and plethysmographic and Doppler waveforms of the brachial and lower e xtremity arteries were obtained. COMPARISON: None. FINDINGS: Right and left brachial artery pressures of 107 mm Hg and 97 mm Hg, respectively, are concordant (nor mal difference <= 30 mmHg). The right high thigh pressure index is 1.18 (normal > 1.2). The left high thigh pressure index was unable to be obtained due to inability to occlude the vessel. The right ankle-brachial index (J CARLOS) is 0.93 (normal >= 0.9-1). The right great toe-brachial index (T BI) is 0.68 (normal >= 0.6-0.8). The right lower extremity segmental pressure gradients are normal (n ormal gradients <= 20-30 mmHg between adjacent levels on the same leg or the same levels on the two l egs). Arterial waveforms are triphasic at the right common femoral artery and biphasic in the more di stal arteries of the right lower limb with brisk systolic upstrokes throughout. The left J CARLOS is 0.59. The left TBI is 0.40. The left lower extremity segmental pressure gradients are significantly increased between the left above and [id number] popliteal arteries and mildly incr eased between the left pepxu-rdr-[id number] popliteal artery and the left dorsalis pedis and posterior tibi al arteries. Arterial waveforms are biphasic with brisk systolic upstrokes throughout the arteries of the left lower limb. IMPRESSION: 1. Right lower limb predominant peripheral arterial occlusive disease with moderately decreased left J CARLOS and TBI. 2. Mildly decreased right high thigh pressure index with borderline right J CARLOS and TBI. Reviewed, dictated and finalized at location A. IMPRESSION: 1. Right lower limb predominant peripheral arterial occlusive disease with mode rately decreased left J CARLOS and TBI. 2. Mildly decreased right high thigh pressure index with borderline right J CARLOS a nd TBI.
== END 2021-07-28 08:46 | disposition home or self-care (01) ==
LOC: ANHIMG 08:55
PROVIDERS: PCP Internal Medicine; Visit Provider Internal Medicine
DX: I73.9 Peripheral vascular disease, unspecified (principal)
CPT/HCPCS: 93923

== ENCOUNTER 2021-09-01 01:46 | Emergency (ER) | payer MEDICARE, SELFPAY ==
--- NOTE | ~2021-09-01 | CT_ITS ---
EXAMINATION: CT brain wo con DATE: 09/01/2021 02:14 INDICATION: Head injury. TECHNIQUE: Computed tomography (CT) of the head was performed without intravenous contrast. The mA wa s adjusted according to patient size. Iterative reconstruction technique was employed. The dose-lengt h product was 681.00 mGy-cm. COMPARISON: Head CT 06/02/2021 FINDINGS: There is an old infarct in left occipital lobe. There is an old infarct in left occipital l obe. There are scattered areas of low attenuation in the cerebral white matter. There is no intracran ial hemorrhage, acute infarction, or abnormal intracranial mass lesion. The ventricles are normal in size. There is mucosal thickening in the paranasal sinuses. The mastoid air cells are normal. The orb its are normal. There is left frontal lateral scalp soft tissue swelling. IMPRESSION: 1. 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 2. Stable moderate nonspecific cerebral white matter disease, which likely represents chronic small v essel ischemic disease. Reviewed, dictated and finalized at location A. TEST LEAD IMPRESSION: 1. 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 2. Stable moderate nonspecific cerebral white matter disease, which likely repr esents chronic small vessel ischemic disease.
--- NOTE | ~2021-09-01 | CT_ITS ---
EXAMINATION: CT cervical spine wo con DATE: 09/01/2021 02:14 INDICATION: Neck pain. Head injury. TECHNIQUE: Computed tomography (CT) of the cervical spine was performed without intravenous contrast. Automated exposure control and iterative reconstruction technique were employed. The dose-length pro duct was 155.06 mGy-cm. COMPARISON: None FINDINGS: There is 3 degrees levocurvature of cervical spine. Vertebral body heights are normal. Ther e is mildly decreased disc height at C4-C5, moderately decreased disc height at C5-C6 and C6-C7, and mildly decreased disc height at C7-T1. The following disc levels are specifically discussed: C2-C3: There is mild bilateral uncovertebral joint osteoarthritis. There is severe right and mild lef t facet joint osteoarthritis. There is no neural foraminal stenosis. There is no central canal stenos is. C3-C4: There is severe bilateral uncovertebral joint osteoarthritis. There is moderate bilateral face t joint osteoarthritis. There is moderate bilateral neural foraminal stenosis. There is mild central canal stenosis. C4-C5: There is severe bilateral uncovertebral joint osteoarthritis. There is severe bilateral facet joint osteoarthritis. There is mild bilateral neural foraminal stenosis. There is mild central canal stenosis. C5-C6: There is severe bilateral uncovertebral joint osteoarthritis. There is severe bilateral facet joint osteoarthritis. There is moderate bilateral neural foraminal stenosis. There is mild central ca nal stenosis. C6-C7: There is severe bilateral uncovertebral joint osteoarthritis. There is mild bilateral facet candy int osteoarthritis. There is moderate right and mild left neural foraminal stenosis. There is mild ce ntral canal stenosis. C7-T1: There is mild bilateral uncovertebral joint osteoarthritis. There is moderate bilateral facet joint osteoarthritis. There is mild bilateral neural foraminal stenosis. There is no central canal st enosis. IMPRESSION: 1. No fracture. 2. Moderate cervical spondylosis. Reviewed, dictated and finalized at location A. ER BUTCHER
--- NOTE | ~2021-09-01 | XR_ITS ---
EXAMINATION: XR hip BI 2V w AP pelvis DATE: 09/01/2021 03:36 INDICATION: Pelvic pain. TECHNIQUE: An anteroposterior view pelvis and 2 views of each hip were obtained. COMPARISON: CT abdomen and pelvis 06/02/2021 FINDINGS: There is lumbar levoscoliosis and severe spondylosis. There are bilateral total hip arthrop lasties in near-anatomic alignment. 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 No acute fracture. No periprosthetic lucency to suggest loosening or infection. IMPRESSION: 1. Bilateral total hip arthroplasties in near-anatomic alignment. Reviewed, dictated and finalized at location A. STRING KNOTTER
--- NOTE | ~2021-09-01 | XR_ITS ---
EXAMINATION: XR chest 1V portable DATE: 09/01/2021 03:36 INDICATION: Chest pain. TECHNIQUE: A single frontal view of the chest was obtained on 2 radiographs. COMPARISON: Chest single view 06/04/2021, chest CT 06/03/2021 FINDINGS: The patient is rotated to his right. There are mild airspace opacities in right mid and low er lung zones. No pleural effusion or pneumothorax. The heart size is normal. IMPRESSION: 1. Mild airspace opacities in right mid and lower lung zones with interval improvement, consistent wi th atelectasis versus pneumonia. Reviewed, dictated and finalized at location A. CONTROL OFFICER IMPRESSION: 1. Mild airspace opacities in right mid and lower lung zones with interval impr ovement, consistent with atelectasis versus pneumonia.
[2021-09-01 01:44] VITALS: BP 154/88; PULSE 105; RESP 17; TEMP 36.8; O2SAT 97
--- NOTE | 2021-09-01 01:54 | ECG_ITS ---
Measurements Intervals [place] Rate: 101 P: 62 MD: 146 QRS: 57 QRSD: 102 T: 75 QT: 344 QTc: 446 Interpretive Statements SINUS TACHYCARDIA POSSIBLE LEFT ATRIAL ENLARGEMENT CANNOT RULE OUT SEPTAL INFARCT, AGE INDETERMINATE BASELINE ARTIFACT- I, II, III, AVR, AVL, AVF, V2-V6 ABNORMAL ECG Electronically Signed On 09-01-2021 8:11:47 OFFSET PRINTING OPERATOR by Marlon Hardy D.O.
[2021-09-01 02:25] LABS: Basophils Absolute Auto 0.1 K/mm3 (0.0-0.1); Basophils Percent Auto 0.5 % (0.2-1.2); Eosinophils Absolute Auto 0.6 K/mm3 (0-0.3); Eosinophils Percent Auto 4.7 % (0-4.4); Hematocrit 35.7 % (42.0-52.0); Hemoglobin 11.4 g/dL (14.0-18.0); Immature Granulocyte Absolute 0.13 K/mm3 (0.00-0.031); Lymphocytes Absolute Auto 4.43 K/mm3 (0.9-3.2); Lymphocytes Percent Auto 34.5 % (18.3-44.2); Mean Corpuscular HGB Conc 31.9 g/dl (32-36); Mean Corpuscular Volume 93.9 fl (80-100); Mean Platelet Volume 8.6 fl (7.4-10.4); Monocytes Absolute Auto 1.1 K/mm3 (0.1-0.6); Monocytes Percent Auto 8.3 % (2.6-8.5); Neutrophils Absolute Auto 6.5 K/mm3 (1.3-6.7); Platelet Count Result 459 k/mm3 (150-375); White Blood Count 12.9 K/mm3 (4.5-10.0)
--- NOTE | 2021-09-01 02:35 | ED.FALL ---
HPI - Fall General Chief Complaint: Fall Stated Complaint: ground level fall/head lac Time Seen by Provider: 09/01/21 01:53 Source: patient, EMS and RN notes reviewed Mode of arrival: EMS Limitations: dementia History of Present Illness HPI Narrative: This is a 71 year old male who presents for evaluation of an unwitnessed fall. EMS reports patient was trying to transfer to his bed when he fell and hit his head. LOC is unknown. EMS reports patient is at his baseline of oriented x 2. EMS states there was pool of blood on the floor but they were unable to appreciated a laceration. He is on aspirin but no other blood thinner. Patient is reporting difficulty laying back due to his chronic neck pain from his scoliosis. He is also complaining of left shoulder pain due to previous injury. Related Data Home Medications Medication Instructions Recorded Confirmed pravastatin 20 mg PO DAILY 06/22/20 06/02/21 tamsulosin 0.4 mg PO DAILY 06/22/20 06/02/21 carisoprodol 350 mg PO TID 08/04/20 06/02/21 triamcinolone acetonide 1 applic TOPICAL TID 08/04/20 06/02/21 Allergies Allergy/AdvReac Type Severity Reaction Status Date / Time tetracycline Allergy Unknown Verified 06/02/21 13:42 Review of Systems Review of Systems: All systems reviewed & are unremarkable except as noted in HPI and below PMFSH Past Medical History Medical History (Updated 09/01/21 @ 07:45 by Kelly Simmons MD) Cellulitis Chronic back pain Spinal stenosis Social History Social History Years smoked: 50 Smoking status: Former smoker Tobacco type: cigarettes Smokeless tobacco user: other Second hand tobacco smoke exposure: Yes Alcohol intake: former Substance use: current Substance use type: marijuana and opiates Last use: 06/21/2020 Gender identity (if verbalized by the patient): Male Spiritual care concerns: No Exam Const: General: no acute distress and alert Orientation/consciousness: patient oriented x3 HENMT: Head: hematoma (left forehead, with bleeding) and other (blood soaked hair) Ears: TM's normal bilaterally Face and sinus: face symmetric Mouth: Yes Normal oral and palatal mucosa present, Yes lip normal and Yes tongue normal Eyes: Pupils: Equal, round and reactive pupils present EOM: EOMs intact bilaterally Resp: Effort & Inspection: normal respiratory effort and no retractions Auscultation: clear to auscultation bilaterally Cardio: Rate: regular rate Rhythm: regular rhythm Heart sounds: no murmurs GI: GI Palp: Yes Soft to palpation, No Tenderness to palpation present (GI) and No Guarding due to palpation present (GI) Auscultation: normal bowel sounds Neuro: General: moves all extremities Extrem: Other: decreased ROM left shoulder Psych: Mental Status: mental status grossly normal Affect: normal affect Course Reevaluation(s) Reevaluation #1: No acute injury on CT brain or spine. laceration repaired. Date: 09/01/21 Time: 07:41 Vital Signs Vital signs: Vital Signs Temperature 98.3 F 09/01/21 01:44 Pulse Rate 105 H 09/01/21 01:44 Respiratory Rate 17 09/01/21 01:44 Blood Pressure 154/88 H 09/01/21 01:44 Pulse Oximetry 97 09/01/21 01:44 Temperature 98.3 F 09/01/21 01:44 Pulse Rate 98 09/01/21 07:01 Respiratory Rate 16 09/01/21 07:01 Blood Pressure 154/86 H 09/01/21 07:01 Pulse Oximetry 100 09/01/21 07:01 Procedures Laceration Laceration 1: Date: 09/01/21 Time: 08:00 Site: face (left forehead) Side (If applicable): left Size (cm): 2 Description: irregular Depth: simple, single layer Local Anesthetic: lidocaine 1% and with epi Amount of anesthesia used (mL): 2 Pre-repair: wound explored, irrigated and other (clot removed) ====== Skin Level ====== Skin layer closed with: other (fast absorbing gut) Size (c
[2021-09-01 02:39] LABS: Alanine Aminotransferase 24 U/L (4-50); Albumin Level 4.2 g/dL (3.5-5.1); Alkaline Phosphatase 90 U/L (38-126); Anion Gap 10 mmol/L (8-16); Aspartate Amino Transferase 32 U/L (17-59); Bilirubin,Total 0.2 mg/dL (0.2-1.3); Blood Urea Nitrogen 24 mg/dL (9-20); Carbon Dioxide 19 mmol/L (22-30); Chloride 110 mmol/L (98-107); Estimated CRCL calculation 64 ml/min; Estimated Glomerular Filt Rate > 60; Glucose 106 mg/dL (65-110); Partial Thromboplastin Time 27.1 SECONDS (22.3-36.8); Potassium 4.1 mmol/L (3.4-5.0); Prothrombin Time 12.9 Seconds (11.1-14.7); Sodium 139 mmol/L (137-145)
[2021-09-01 02:57] VITALS: BP 178/94; PULSE 103; RESP 17; O2SAT 100
[2021-09-01 03:39] VITALS: BP 122/77; PULSE 108; RESP 17; O2SAT 97
[2021-09-01 05:04] VITALS: BP 159/92; PULSE 99; RESP 17; O2SAT 100
[2021-09-01 07:01] VITALS: BP 154/86; PULSE 98; RESP 16; O2SAT 100
--- NOTE | 2021-09-01 08:34 | PC.NURSE ---
Left message for daughter Ameena that pt. is ready for discharge and needs to be picked up.
--- NOTE | 2021-09-01 08:52 | PC.NURSE ---
Spoke to staff at [facility] at 0842, per staff, another staff member is on way to our facility to get another pt. and will be able to transport Mr. Salomon as well. At 0851 Josselyn nurse at [facility] took report on Mr. Arceo. Made aware sutures are absorbable sutures and will not need removed. Pt.'s full discharge packet will be sent with pt.
--- NOTE | 2021-09-01 09:05 | PC.NURSE ---
Attempted to clean pt's face, schmidt, scalp and hair of dried blood. Pt. refuses.
[2021-09-01 09:51] VITALS: BP 171/82; PULSE 96; RESP 18; O2SAT 98
== END 2021-09-01 09:55 ==
PROVIDERS: Emergency Provider General Practice; PCP Internal Medicine
DX: S01.81XA Laceration without foreign body of other part of head, initial encounter (principal); M41.9 Scoliosis, unspecified; Z96.643 Presence of artificial hip joint, bilateral; R00.0 Tachycardia, unspecified; R94.31 Abnormal electrocardiogram [ECG] [EKG]; R91.8 Other nonspecific abnormal finding of lung field; R90.82 White matter disease, unspecified; M47.812 Spondylosis without myelopathy or radiculopathy, cervical region; Z79.82 Long term (current) use of aspirin; Z87.891 Personal history of nicotine dependence; W18.39XA Other fall on same level, initial encounter
CPT/HCPCS: 12011; 36415; 70450; 71045; 72125; 73521; 80053; 85025; 85610; 85730; 93005; 99284; L0140

== ENCOUNTER 2021-10-03 19:05 | Emergency (ER) | payer MEDICARE, SELFPAY ==
[2021-10-03 20:00] VITALS: BP 131/74; PULSE 96; RESP 18; TEMP 36.4; O2SAT 100
--- NOTE | 2021-10-03 21:39 | ED.GENADULT ---
HPI - General Adult General Chief complaint: Unspecified Stated complaint: SNORTED METH AT HALF-WAY Time Seen by Provider: 10/03/21 21:13 History of Present Illness HPI narrative: Patient is a 71-year-old gentleman who presents the emergency department with chief complaint of snorted meth at the shelter. Patient states that he occasionally partakes in a little methamphetamine use and may have snorted a little meth today at the shelter. Patient states he has history of peripheral vascular disease reports that he did have some diarrhea a week or so ago but that is subsequently improved the patient states that now he really has no complaint and reports that he does have a wound on his right lower extremity that has been slowly healing is treated with localized wound care at the shelter. Related Data Home Medications Medication Instructions Recorded Confirmed pravastatin 20 mg PO DAILY 06/22/20 06/02/21 tamsulosin 0.4 mg PO DAILY 06/22/20 06/02/21 carisoprodol 350 mg PO TID 08/04/20 06/02/21 triamcinolone acetonide 1 applic TOPICAL TID 08/04/20 06/02/21 Allergies Allergy/AdvReac Type Severity Reaction Status Date / Time tetracycline Allergy Unknown Verified 10/03/21 20:05 Review of Systems Review of Systems: A 10 system review of systems was completed on the patient and is negative except for what is stated in the HPI. Nursing and ancillary documentation was reviewed. [facility] Past Medical History Medical History Cellulitis Chronic back pain Spinal stenosis Social History Social History Years smoked: 50 Smoking status: Former smoker Tobacco type: cigarettes Smokeless tobacco user: other Second hand tobacco smoke exposure: Yes Alcohol intake: former Substance use: current Substance use type: marijuana and opiates Last use: 06/21/2020 Gender identity (if verbalized by the patient): Male Spiritual care concerns: No Exam Narrative: GENERAL: Well-appearing, well-nourished, and in no acute distress. HEAD: Normocephalic, atraumatic. EYES: PERRLA and EOMI. ENT: Nares clear, no rhinorrhea or epistaxis. Mucous membranes moist. NECK: Supple. CHEST: Clear to auscultation. No respiratory distress. HEART: Regular rate and rhythm. No murmur heard. Normal peripheral pulses. ABDOMEN: Soft, nontender, nondistended, normal active bowel sounds. EXTREMITIES: Normal range of motion. No edema. There is venous stasis ulcers present on the right lower extremity superior to the ankle there is no purulent drainage SKIN: Warm, dry, no rash. NEURO: No focal deficits. Alert and oriented x3. PSYCH: Normal mood and affect. Course Vital Signs Vital signs: Vital Signs Temperature 36.4 C L 10/03/21 20:00 Pulse Rate 96 10/03/21 20:00 Respiratory Rate 18 10/03/21 20:00 Blood Pressure 131/74 10/03/21 20:00 Pulse Oximetry 100 10/03/21 20:00 Temperature 36.4 C L 10/03/21 20:00 Pulse Rate 96 10/03/21 20:00 Respiratory Rate 18 10/03/21 20:00 Blood Pressure 131/74 10/03/21 20:00 Pulse Oximetry 100 10/03/21 20:00 Medical Decision Making Vital Signs Vital Signs: Vital Signs Temperature 36.4 C L 10/03/21 20:00 Pulse Rate 96 10/03/21 20:00 Respiratory Rate 18 10/03/21 20:00 Blood Pressure 131/74 10/03/21 20:00 Pulse Oximetry 100 10/03/21 20:00 Temperature 36.4 C L 10/03/21 20:00 Pulse Rate 96 10/03/21 20:00 Respiratory Rate 18 10/03/21 20:00 Blood Pressure 131/74 10/03/21 20:00 Pulse Oximetry 100 10/03/21 20:00 Lab Data Result diagrams: 10/03/21 22:13 10/03/21 22:13 Labs: Lab Results 10/03/21 10/03/21 Range/Units 22:13 22:13 WBC 12.9 H (4.5-10.0) K/mm3 RBC 3.60 L (4.6-6.20) M/mm3 Hgb 10.0 L (14.0-18.0) g/dL Hct 32.1 L (42.0-52.0) % MCV 89.2 (80
[2021-10-03 22:18] LABS: Basophils Absolute Auto 0.1 K/mm3 (0.0-0.1); Basophils Percent Auto 0.6 % (0.2-1.2); Eosinophils Absolute Auto 0.8 K/mm3 (0-0.3); Eosinophils Percent Auto 6.4 % (0-4.4); Hematocrit 32.1 % (42.0-52.0); Immature Granulocyte Absolute 0.15 K/mm3 (0.00-0.031); Immature Granulocyte Percent A 1.2 % (0-0.5); Lymphocytes Absolute Auto 2.84 K/mm3 (0.9-3.2); Mean Corpuscular HGB Conc 31.2 g/dl (32-36); Mean Corpuscular Hemoglobin 27.8 pg (26-34); Mean Corpuscular Volume 89.2 fl (80-100); Mean Platelet Volume 8.4 fl (7.4-10.4); Monocytes Absolute Auto 1.2 K/mm3 (0.1-0.6); Monocytes Percent Auto 9.5 % (2.6-8.5); Neutrophils Absolute Auto 7.8 K/mm3 (1.3-6.7); Neutrophils Percent Auto 60.3 % (45.5-73.1); Platelet Count Result 530 k/mm3 (150-375); Red Cell Distribution Width 14.6 % (11.5-14.5); White Blood Count 12.9 K/mm3 (4.5-10.0)
[2021-10-03 22:52] LABS: Alanine Aminotransferase 19 U/L (4-50); Albumin Level 3.7 g/dL (3.5-5.1); Alkaline Phosphatase 91 U/L (38-126); Anion Gap 5 mmol/L (8-16); Aspartate Amino Transferase 26 U/L (17-59); Bilirubin,Total 0.2 mg/dL (0.2-1.3); Blood Urea Nitrogen 20 mg/dL (9-20); Calcium 9.5 mg/dL (8.4-10.2); Carbon Dioxide 25 mmol/L (22-30); Chloride 109 mmol/L (98-107); Estimated Glomerular Filt Rate > 60; Glucose 103 mg/dL (65-110); Potassium 4.7 mmol/L (3.4-5.0); Sodium 139 mmol/L (137-145)
--- NOTE | 2021-10-04 01:22 | PC.NURSE ---
pt unable to find a ride. spoke with [facility] about transportation, no transport until AM. Pt's contact, Ameena - no answer to phone calls made - left a message. Pt states daughter lives 80 miles away. No other family member to give him a ride. Pt does not qualify for ambulance ride back to [facility].
--- NOTE | 2021-10-04 01:49 | PC.NURSE ---
Spoke with Edilson Plummer about pt's predicament. Unable to get a cab voucher to go back to [place]. Girlfriend called a cab and cab arrived - Cab refused to take due to no payment.
[2021-10-04 07:37] VITALS: BP 168/84; PULSE 82; RESP 16; O2SAT 100
--- NOTE | 2021-10-04 08:28 | PC.NURSE ---
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
== END 2021-10-04 09:00 ==
PROVIDERS: Emergency Provider Emergency Medicine; PCP Internal Medicine
DX: F15.10 Other stimulant abuse, uncomplicated (principal); Z87.891 Personal history of nicotine dependence
CPT/HCPCS: 36415; 80053; 85025; 99283